=== PATIENT | male | born 1945 | race Caucasian/White ===

== ENCOUNTER → 2016-05-02 | Outpatient (CLI) | payer MEDICARE ==
[~2016-05-02] MED LIST: /METO25TAB PO; /NITR4TASL SL; /WARF5TA PO; ACET50TA PO; ALB2.5NEB INH; AMLO5TAB2 PO; AZIT250T PO; BACIDCA PO; BISAC5TA PO; CEFT500T PO; CLOP75TA2 PO; DOXY75CA3 PO; IPRA2IN INH; OCEA0.65; PRED20TA PO; SIMV20TA2 PO; VENTAER INH
[2016-05-02 09:25] LABS: INR 2.18
== END ==
LOC: M LAB 08:16
PROVIDERS: ATTEND Family Medicine
DX: I48.91 Unspecified atrial fibrillation (principal); Z51.81 Encounter for therapeutic drug level monitoring; Z79.01 Long term (current) use of anticoagulants

== ENCOUNTER → 2016-05-31 | Outpatient (CLI) | payer MEDICARE ==
[2016-05-31 09:25] LABS: INR 2.04
== END ==
LOC: M LAB 08:05
PROVIDERS: ATTEND Family Medicine
DX: Z51.81 Encounter for therapeutic drug level monitoring (principal); Z79.01 Long term (current) use of anticoagulants; I48.91 Unspecified atrial fibrillation

== ENCOUNTER → 2016-06-28 | Outpatient (CLI) | payer MEDICARE ==
[2016-06-28 09:19] LABS: BASO % 0.5 % (0.0-1.0); EOS # 0.4 K/mm3 (0.0-0.50); EOS % 5.1 % (0.0-3.0); LARGE UNSTAINED CELL # 0.3 K/mm3 (0.0-0.4); LARGE UNSTAINED CELL % 3.3 % (0.0-4.0); LYMPH # 1.8 K/mm3 (1.5-4.5); LYMPH % 21.4 % (24.0-44.0); MEAN CORPUSCULAR HEMOGLOBIN 27.8 pg (27.0-33.0); MEAN CORPUSCULAR HGB CONC 33.1 g/dl (32.0-36.5); MEAN CORPUSCULAR VOLUME 84.2 fl (80.0-96.0); MONO # 0.7 K/mm3 (0.0-0.8); MONO % 8.4 % (0.0-5.0); NEUTROPHILS # 5.3 K/mm3 (1.8-7.7); NEUTROPHILS % 61.3 % (36.0-66.0); PLATELET COUNT, AUTOMATED 230 k/mm3 (150-450); RED CELL DISTRIBUTION WIDTH 13.7 % (11.5-14.5); WHITE BLOOD COUNT 8.6 K/mm3 (4.0-10.0)
[2016-06-28 09:36] LABS: ALBUMIN 3.3 GM/DL (3.2-5.2); ALBUMIN/GLOBULIN RATIO 0.97 (1.00-1.93); ALKALINE PHOSPHATASE 84 U/L (45-117); ALT/SGPT 28 U/L (12-78); ANION GAP 9 MEQ/L (8-16); AST/SGOT 19 U/L (15-37); BILIRUBIN,TOTAL 0.9 MG/DL (0.2-1.0); BLOOD UREA NITROGEN 16 MG/DL (7-18); CALCIUM LEVEL 8.5 MG/DL (8.8-10.2); CARBON DIOXIDE LEVEL 29 MEQ/L (21-32); CHLORIDE LEVEL 100 MEQ/L (98-107); CHOLESTEROL LEVEL 131 MG/DL (<200); CREATININE FOR GFR 1.04 MG/DL (0.70-1.30); GLOMERULAR FILTRATION RATE > 60.0 (>42); GLUCOSE, FASTING 95 MG/DL (83-110); SODIUM LEVEL 138 MEQ/L (136-145); TOTAL PROTEIN 6.7 GM/DL (6.4-8.2); TRIGLYCERIDES LEVEL 147 MG/DL (<150)
[2016-06-29 13:58] LABS: INR 2.16
== END ==
LOC: M LAB 08:25
PROVIDERS: ATTEND Family Medicine
DX: Z79.01 Long term (current) use of anticoagulants (principal)

== ENCOUNTER → 2016-06-29 | Outpatient (REF) | payer MEDICARE | LOC: M SFHCCLAY 13:24 | PROVIDERS: ATTEND Family Medicine | DX: I48.91 Unspecified atrial fibrillation (principal) ==

== ENCOUNTER → 2016-07-26 | Outpatient (CLI) | payer MEDICARE ==
[2016-07-26 08:34] LABS: INR 2.48
== END ==
LOC: M LAB 07:44
PROVIDERS: ATTEND Family Medicine
DX: I48.91 Unspecified atrial fibrillation (principal); Z51.81 Encounter for therapeutic drug level monitoring; Z79.01 Long term (current) use of anticoagulants

== ENCOUNTER → 2016-08-23 | Outpatient (CLI) | payer MEDICARE ==
[2016-08-23 08:30] LABS: INR 2.71
== END ==
LOC: M LAB 08:03
PROVIDERS: ATTEND Family Medicine
DX: I48.91 Unspecified atrial fibrillation (principal)

== ENCOUNTER → 2016-09-20 | Outpatient (CLI) | payer MEDICARE ==
[2016-09-20 09:03] LABS: INR 2.11
== END ==
LOC: M LAB 08:27
PROVIDERS: ATTEND Family Medicine
DX: Z51.81 Encounter for therapeutic drug level monitoring (principal); Z79.01 Long term (current) use of anticoagulants; I48.91 Unspecified atrial fibrillation

== ENCOUNTER → 2016-10-18 | Outpatient (CLI) | payer MEDICARE ==
[2016-10-18 09:42] LABS: INR 1.99
== END ==
LOC: M LAB 08:42
PROVIDERS: ATTEND Family Medicine
DX: I48.91 Unspecified atrial fibrillation (principal); Z51.81 Encounter for therapeutic drug level monitoring; Z79.01 Long term (current) use of anticoagulants

== ENCOUNTER → 2016-11-15 | Outpatient (CLI) | payer MEDICARE ==
[2016-11-15 08:05] LABS: INR 2.27
== END ==
LOC: M LAB 07:31
PROVIDERS: ATTEND Family Medicine
DX: I48.91 Unspecified atrial fibrillation (principal); Z51.81 Encounter for therapeutic drug level monitoring; Z79.01 Long term (current) use of anticoagulants

== ENCOUNTER → 2016-12-12 | Outpatient (REF) | payer MEDICARE | LOC: M SFHCCLAY 11:12 | PROVIDERS: ATTEND Nurse Practitioner Family | DX: L03.116 Cellulitis of left lower limb (principal) ==

== ENCOUNTER → 2016-12-13 | Outpatient (CLI) | payer MEDICARE ==
[2016-12-13 08:52] LABS: INR 2.16
== END ==
LOC: EEVIPCON 07:32 → M LAB 07:32
PROVIDERS: ATTEND Family Medicine
DX: I48.91 Unspecified atrial fibrillation (principal); Z51.81 Encounter for therapeutic drug level monitoring; Z79.01 Long term (current) use of anticoagulants

== ENCOUNTER → 2016-12-19 | Outpatient (CLI) | payer MEDICARE ==
--- NOTE | 2016-12-19 09:16 | REP ---
RIGHT HIP, TWO VIEWS: HISTORY: Hip pain. There is no acute fracture or dislocation. There is severe narrowing of the joint space with associated sclerosis and osteophyte formation. IMPRESSION: Degenerative change as described above.
== END ==
LOC: M CLY 07:49
PROVIDERS: ATTEND Nurse Practitioner Family
DX: M16.11 Unilateral primary osteoarthritis, right hip (principal); Z22.322 Carrier or suspected carrier of Methicillin resistant Staphylococcus aureus

== ENCOUNTER → 2017-01-10 | Outpatient (CLI) | payer MEDICARE ==
[2017-01-10 09:47] LABS: INR 1.83
== END ==
LOC: M LAB 08:36
PROVIDERS: ATTEND Family Medicine
DX: I48.91 Unspecified atrial fibrillation (principal)

== ENCOUNTER → 2017-02-07 | Outpatient (CLI) | payer MEDICARE ==
[2017-02-07 09:42] LABS: INR 2.78
== END ==
LOC: M LAB 08:15
PROVIDERS: ATTEND Family Medicine
DX: I48.91 Unspecified atrial fibrillation (principal)

== ENCOUNTER → 2017-03-07 | Outpatient (CLI) | payer MEDICARE ==
[2017-03-07 09:40] LABS: INR 2.21
== END ==
LOC: M LAB 08:34
PROVIDERS: ATTEND Family Medicine
DX: Z51.81 Encounter for therapeutic drug level monitoring (principal); Z79.01 Long term (current) use of anticoagulants; I48.91 Unspecified atrial fibrillation

== ENCOUNTER → 2017-04-04 | Outpatient (CLI) | payer MEDICARE ==
[2017-04-04 10:14] LABS: INR 3.47
== END ==
LOC: M LAB 08:34
PROVIDERS: ATTEND Family Medicine
DX: I48.91 Unspecified atrial fibrillation (principal)

== ENCOUNTER → 2017-04-18 | Outpatient (CLI) | payer MEDICARE ==
[2017-04-18 08:31] LABS: INR 2.07
== END ==
LOC: M LAB 07:59
PROVIDERS: ATTEND Family Medicine
DX: I48.91 Unspecified atrial fibrillation (principal)

== ENCOUNTER → 2017-05-16 | Outpatient (CLI) | payer MEDICARE ==
[2017-05-16 09:31] LABS: INR 2.98; PROTHROMBIN TIME 32.3 SECONDS (12.4-14.5)
== END ==
LOC: M LAB 08:28
DX: I48.91 Unspecified atrial fibrillation (principal)
CPT/HCPCS: 85610

== ENCOUNTER → 2017-06-06 | Outpatient (CLI) | payer MEDICARE ==
[2017-06-06 08:03] LABS: BASO % 0.4 % (0.0-1.0); EOS # 0.4 10^3/uL (0.0-0.50); EOS % 5.2 % (0.0-3.0); HEMOGLOBIN 12.4 g/dl (14.0-18.0); IMMATURE GRANULOCYTE % 0.4 % (0-0); LYMPH % 25.6 % (24.0-44.0); MEAN CORPUSCULAR HEMOGLOBIN 28.2 pg (27.0-33.0); MEAN CORPUSCULAR HGB CONC 31.8 g/dl (32.0-36.5); MEAN CORPUSCULAR VOLUME 88.8 fl (80.0-96.0); MONO # 0.7 10^3/uL (0.0-0.8); MONO % 9.2 % (0.0-5.0); NEUTROPHILS # 4.7 10^3/uL (1.8-7.7); NEUTROPHILS % 59.2 % (36.0-66.0); PLATELET COUNT, AUTOMATED 229 10^3/uL (150-450); RED BLOOD COUNT 4.39 10^6/uL (4.30-6.10); RED CELL DISTRIBUTION WIDTH 14.4 % (11.5-14.5); WHITE BLOOD COUNT 7.9 10^3/uL (4.0-10.0)
[2017-06-06 08:18] LABS: INR 2.82; PROTHROMBIN TIME 30.9 SECONDS (12.4-14.5)
[2017-06-06 08:22] LABS: ALBUMIN 3.4 GM/DL (3.2-5.2); ALKALINE PHOSPHATASE 94 U/L (45-117); ALT/SGPT 35 U/L (12-78); ANION GAP 6 MEQ/L (8-16); AST/SGOT 20 U/L (7-37); BILIRUBIN,TOTAL 0.8 MG/DL (0.2-1.0); BLOOD UREA NITROGEN 21 MG/DL (7-18); CALCIUM LEVEL 8.3 MG/DL (8.8-10.2); CARBON DIOXIDE LEVEL 33 MEQ/L (21-32); CHLORIDE LEVEL 103 MEQ/L (98-107); CHOLESTEROL LEVEL 149 MG/DL (<200); GLOMERULAR FILTRATION RATE > 60.0 (>42); GLUCOSE, FASTING 149 MG/DL (70-100); HDL CHOLESTEROL 39 MG/DL (>40); LDL CHOLESTEROL 71.6 MG/DL (<100); NON-HDL-C 110 MG/DL; POTASSIUM SERUM 4.1 MEQ/L (3.5-5.1); SODIUM LEVEL 142 MEQ/L (136-145); TOTAL PROTEIN 6.8 GM/DL (6.4-8.2); TRIGLYCERIDES LEVEL 192 MG/DL (<150)
== END ==
LOC: M LAB 07:25
DX: Z79.01 Long term (current) use of anticoagulants (principal); E78.5 Hyperlipidemia, unspecified; I10 Essential (primary) hypertension
CPT/HCPCS: 80053

== ENCOUNTER → 2017-07-03 | Outpatient (CLI) | payer MEDICARE ==
[2017-07-03 17:48] LABS: INR 3.23; PROTHROMBIN TIME 34.5 SECONDS (12.4-14.5)
== END ==
LOC: M WUC 13:00
DX: Z79.01 Long term (current) use of anticoagulants (principal); I48.91 Unspecified atrial fibrillation
CPT/HCPCS: 85610

== ENCOUNTER → 2017-07-18 | Outpatient (CLI) | payer MEDICARE ==
[2017-07-18 11:55] LABS: INR 3.34; PROTHROMBIN TIME 35.4 SECONDS (12.4-14.5)
== END ==
LOC: M LAB 11:01
DX: I10 Essential (primary) hypertension (principal); E78.5 Hyperlipidemia, unspecified; Z79.01 Long term (current) use of anticoagulants
CPT/HCPCS: 85610

== ENCOUNTER → 2017-08-21 | Outpatient (CLI) | payer MEDICARE ==
[2017-08-21 16:55] LABS: INR 3.29
== END ==
LOC: M WUC 13:25
DX: I48.91 Unspecified atrial fibrillation (principal)
CPT/HCPCS: 85610

== ENCOUNTER → 2017-09-11 | Outpatient (CLI) | payer MEDICARE ==
[2017-09-11 14:04] LABS: ANION GAP 7 MEQ/L (8-16); BLOOD UREA NITROGEN 31 MG/DL (7-18); CALCIUM LEVEL 8.8 MG/DL (8.8-10.2); CARBON DIOXIDE LEVEL 31 MEQ/L (21-32); CHLORIDE LEVEL 104 MEQ/L (98-107); CREATININE FOR GFR 1.33 MG/DL (0.70-1.30); GLOMERULAR FILTRATION RATE 56.4 (>42); GLUCOSE, FASTING 76 MG/DL (70-100); POTASSIUM SERUM 4.1 MEQ/L (3.5-5.1); SODIUM LEVEL 142 MEQ/L (136-145)
[2017-09-11 15:35] LABS: PROTHROMBIN TIME 27.3 SECONDS (12.4-14.5)
[2017-09-11 15:36] LABS: INR 2.42
== END ==
LOC: M WUC 11:14
DX: I48.91 Unspecified atrial fibrillation (principal); I10 Essential (primary) hypertension
CPT/HCPCS: 80048

== ENCOUNTER → 2017-10-30 | Outpatient (CLI) | payer MEDICARE ==
[2017-10-30 13:36] LABS: INR 1.98; PROTHROMBIN TIME 22.9 SECONDS (12.1-14.4)
== END ==
LOC: M WUC 11:12
DX: Z51.81 Encounter for therapeutic drug level monitoring (principal); Z79.01 Long term (current) use of anticoagulants; I48.91 Unspecified atrial fibrillation
CPT/HCPCS: 85610

== ENCOUNTER → 2017-11-06 | Outpatient (CLI) | payer MEDICARE ==
[2017-11-06 13:45] LABS: INR 2.61; PROTHROMBIN TIME 28.5 SECONDS (12.1-14.4)
== END ==
LOC: M WUC 10:10
DX: I48.91 Unspecified atrial fibrillation (principal)
CPT/HCPCS: 85610

== ENCOUNTER → 2017-11-20 | Outpatient (CLI) | payer MEDICARE ==
[2017-11-20 12:19] LABS: INR 1.41; PROTHROMBIN TIME 17.5 SECONDS (12.1-14.4)
== END ==
LOC: M WUC 10:01
DX: I48.91 Unspecified atrial fibrillation (principal)
CPT/HCPCS: 85610

== ENCOUNTER → 2017-11-27 | Outpatient (CLI) | payer MEDICARE ==
[2017-11-27 12:28] LABS: INR 2.49; PROTHROMBIN TIME 27.4 SECONDS (12.1-14.4)
== END ==
LOC: M WUC 10:39
DX: Z51.81 Encounter for therapeutic drug level monitoring (principal); Z79.01 Long term (current) use of anticoagulants; I48.91 Unspecified atrial fibrillation
CPT/HCPCS: 85610

== ENCOUNTER → 2017-12-03 | Outpatient (REF) | payer MEDICARE ==
[2017-12-03 17:27] LABS: BASO # 0.1 10^3/uL (0.0-0.2); BASO % 0.6 % (0.0-1.0); EOS # 0.4 10^3/uL (0.0-0.50); EOS % 3.8 % (0.0-3.0); HEMATOCRIT 42.6 % (42.0-52.0); HEMOGLOBIN 13.6 g/dl (13.5-17.5); IMMATURE GRANULOCYTE % 0.3 % (0-3.0); LYMPH # 2.3 10^3/uL (1.5-4.5); LYMPH % 23.1 % (24.0-44.0); MEAN CORPUSCULAR HEMOGLOBIN 28.3 pg (27.0-33.0); MEAN CORPUSCULAR HGB CONC 31.9 g/dl (32.0-36.5); MEAN CORPUSCULAR VOLUME 88.6 fl (80.0-96.0); MONO # 1.3 10^3/uL (0.0-0.8); MONO % 12.8 % (0.0-5.0); NEUTROPHILS % 59.4 % (36.0-66.0); PLATELET COUNT, AUTOMATED 201 10^3/uL (150-450); RED BLOOD COUNT 4.81 10^6/uL (4.30-6.10)
[2017-12-03 18:20] LABS: ANION GAP 8 MEQ/L (8-16); BLOOD UREA NITROGEN 23 MG/DL (7-18); CALCIUM LEVEL 9.2 MG/DL (8.8-10.2); CARBON DIOXIDE LEVEL 30 MEQ/L (21-32); CHLORIDE LEVEL 103 MEQ/L (98-107); CREATININE FOR GFR 1.23 MG/DL (0.70-1.30); GLOMERULAR FILTRATION RATE > 60.0 (>42); GLUCOSE, FASTING 92 MG/DL (70-100); POTASSIUM SERUM 4.5 MEQ/L (3.5-5.1); SODIUM LEVEL 141 MEQ/L (136-145)
== END ==
LOC: M SFHCCLAY 10:24
DX: Z51.81 Encounter for therapeutic drug level monitoring (principal); Z79.01 Long term (current) use of anticoagulants; I10 Essential (primary) hypertension
CPT/HCPCS: 80048

== ENCOUNTER → 2017-12-12 | Outpatient (CLI) | payer MEDICARE ==
[2017-12-12 14:14] LABS: INR 2.29; PROTHROMBIN TIME 25.7 SECONDS (12.1-14.4)
== END ==
LOC: M WUC 11:46
DX: Z51.81 Encounter for therapeutic drug level monitoring (principal); Z79.01 Long term (current) use of anticoagulants
CPT/HCPCS: 85610

== ENCOUNTER → 2017-12-26 | Outpatient (CLI) | payer MEDICARE | LOC: M CLY 10:28 | DX: R06.09 Other forms of dyspnea (principal) | CPT/HCPCS: 71046; G0463 ==

== ENCOUNTER → 2018-01-08 | Outpatient (CLI) | payer MEDICARE ==
[2018-01-08 11:48] LABS: INR 2.86; PROTHROMBIN TIME 30.6 SECONDS (12.1-14.4)
== END ==
LOC: M WUC 09:26
DX: Z51.81 Encounter for therapeutic drug level monitoring (principal); Z79.01 Long term (current) use of anticoagulants
CPT/HCPCS: 85610

== ENCOUNTER → 2018-01-23 | Outpatient (CLI) | payer MEDICARE | LOC: M CARPUL 09:17 | DX: R06.09 Other forms of dyspnea (principal); I08.0 Rheumatic disorders of both mitral and aortic valves | CPT/HCPCS: 93306 ==

== ENCOUNTER → 2018-02-05 | Outpatient (CLI) | payer MEDICARE ==
[2018-02-05 17:29] LABS: INR 2.08; PROTHROMBIN TIME 23.8 SECONDS (12.1-14.4)
== END ==
LOC: M WUC 12:29
DX: Z51.81 Encounter for therapeutic drug level monitoring (principal); Z79.01 Long term (current) use of anticoagulants
CPT/HCPCS: 85610

== ENCOUNTER → 2018-03-05 | Outpatient (CLI) | payer MEDICARE ==
[2018-03-05 10:37] LABS: INR 2.11; PROTHROMBIN TIME 24.1 SECONDS (12.1-14.4)
== END ==
LOC: M LAB 09:42
DX: Z51.81 Encounter for therapeutic drug level monitoring (principal); Z79.01 Long term (current) use of anticoagulants
CPT/HCPCS: 85610

== ENCOUNTER → 2018-04-02 | Outpatient (CLI) | payer MEDICARE ==
[2018-04-02 12:56] LABS: INR 2.57; PROTHROMBIN TIME 28.1 SECONDS (12.1-14.4)
== END ==
LOC: M WUC 09:26
DX: Z51.81 Encounter for therapeutic drug level monitoring (principal); Z79.01 Long term (current) use of anticoagulants
CPT/HCPCS: 85610

== ENCOUNTER → 2018-05-01 | Outpatient (CLI) | payer MEDICARE ==
[2018-05-01 12:48] LABS: INR 2.32; PROTHROMBIN TIME 25.9 SECONDS (12.1-14.4)
== END ==
LOC: M WUC 09:10
PROVIDERS: ATTEND Family Medicine
DX: I48.91 Unspecified atrial fibrillation (principal); Z79.01 Long term (current) use of anticoagulants

== ENCOUNTER → 2018-05-29 | Outpatient (CLI) | payer MEDICARE ==
[2018-05-29 15:00] LABS: INR 2.71; PROTHROMBIN TIME 29.3 SECONDS (12.1-14.4)
== END ==
LOC: M WUC 10:52
PROVIDERS: ATTEND Family Medicine
DX: Z51.81 Encounter for therapeutic drug level monitoring (principal); Z79.01 Long term (current) use of anticoagulants

== ENCOUNTER → 2018-06-05 | Outpatient (REF) | payer MEDICARE ==
[2018-06-05 11:53] LABS: HEMATOCRIT 43.4 % (42.0-52.0); HEMOGLOBIN 13.8 g/dl (13.5-17.5); MEAN CORPUSCULAR HEMOGLOBIN 28.3 pg (27.0-33.0); MEAN CORPUSCULAR HGB CONC 31.8 g/dl (32.0-36.5); MEAN CORPUSCULAR VOLUME 89.1 fl (80.0-96.0); PLATELET COUNT, AUTOMATED 256 10^3/uL (150-450); RED BLOOD COUNT 4.87 10^6/uL (4.30-6.10)
[2018-06-05 12:22] LABS: ALBUMIN 3.6 GM/DL (3.2-5.2); BILIRUBIN,TOTAL 0.8 MG/DL (0.2-1.0); CALCIUM LEVEL 8.6 MG/DL (8.8-10.2); CHOLESTEROL RISK RATIO 4.242 (<5); CREATININE FOR GFR 1.29 MG/DL (0.70-1.30); GLOMERULAR FILTRATION RATE 58.3 (>42); POTASSIUM SERUM 4.2 MEQ/L (3.5-5.1); TOTAL PROTEIN 7.1 GM/DL (6.4-8.2)
== END ==
LOC: M SFHCCLAY 09:25
PROVIDERS: ATTEND Family Medicine
DX: Z51.81 Encounter for therapeutic drug level monitoring (principal); Z79.01 Long term (current) use of anticoagulants; I48.91 Unspecified atrial fibrillation; E78.5 Hyperlipidemia, unspecified

== ENCOUNTER → 2018-06-26 | Outpatient (CLI) | payer MEDICARE ==
[2018-06-26 13:31] LABS: INR 2.52; PROTHROMBIN TIME 27.7 SECONDS (12.1-14.4)
== END ==
LOC: M WUC 10:32
PROVIDERS: ATTEND Family Medicine
DX: Z79.01 Long term (current) use of anticoagulants (principal)

== ENCOUNTER → 2018-07-24 | Outpatient (CLI) | payer MEDICARE ==
[2018-07-24 12:20] LABS: INR 3.02
== END ==
LOC: M WUC 09:28
PROVIDERS: ATTEND Family Medicine
DX: Z51.81 Encounter for therapeutic drug level monitoring (principal); Z79.01 Long term (current) use of anticoagulants

== ENCOUNTER → 2018-08-21 | Outpatient (CLI) | payer MEDICARE ==
[~2018-08-21] MED LIST changes: -/METO25TAB PO; -/NITR4TASL SL; -/WARF5TA PO; -ACET50TA PO; +COUM1TAB17 PO; +MAPA500T17 PO; +METO1TAB87 PO; +NITR0.4S SL
[2018-08-21 17:06] LABS: INR 2.15; PROTHROMBIN TIME 24.4 SECONDS (12.1-14.4)
== END ==
LOC: M WUC 13:34
PROVIDERS: ATTEND Family Medicine
DX: I48.91 Unspecified atrial fibrillation (principal); Z79.01 Long term (current) use of anticoagulants

== ENCOUNTER → 2018-09-24 | Outpatient (CLI) | payer MEDICARE ==
[2018-09-24 12:49] LABS: INR 2.85; PROTHROMBIN TIME 30.5 SECONDS (12.1-14.4)
== END ==
LOC: M WUC 09:32
PROVIDERS: ATTEND Family Medicine
DX: Z79.01 Long term (current) use of anticoagulants (principal); I48.91 Unspecified atrial fibrillation

== ENCOUNTER → 2018-10-03 | Outpatient (CLI) | payer MEDICARE ==
[2018-10-03 19:24] LABS: BASO % 0.5 % (0.0-1.0); EOS # 0.3 10^3/uL (0.0-0.50); EOS % 3.9 % (0.0-3.0); HEMOGLOBIN 13.5 g/dl (13.5-17.5); LYMPH # 1.7 10^3/uL (1.5-4.5); LYMPH % 19.7 % (24.0-44.0); MEAN CORPUSCULAR HEMOGLOBIN 28.1 pg (27.0-33.0); MEAN CORPUSCULAR HGB CONC 32.1 g/dl (32.0-36.5); MEAN CORPUSCULAR VOLUME 87.3 fl (80.0-96.0); MONO % 11.4 % (0.0-5.0); NEUTROPHILS # 5.4 10^3/uL (1.8-7.7); NEUTROPHILS % 64.3 % (36.0-66.0); PLATELET COUNT, AUTOMATED 241 10^3/uL (150-450); RED BLOOD COUNT 4.81 10^6/uL (4.30-6.10); WHITE BLOOD COUNT 8.4 10^3/uL (4.0-10.0)
[2018-10-03 19:33] LABS: ALBUMIN 3.3 GM/DL (3.2-5.2); ALT/SGPT 22 U/L (12-78); BILIRUBIN,TOTAL 0.9 MG/DL (0.2-1.0); BLOOD UREA NITROGEN 26 MG/DL (7-18); CALCIUM LEVEL 8.9 MG/DL (8.8-10.2); CARBON DIOXIDE LEVEL 31 MEQ/L (21-32); CHLORIDE LEVEL 101 MEQ/L (98-107); CREATININE FOR GFR 1.17 MG/DL (0.70-1.30); GLOMERULAR FILTRATION RATE > 60.0 (>42); GLUCOSE, FASTING 107 MG/DL (70-100); POTASSIUM SERUM 4.4 MEQ/L (3.5-5.1); SODIUM LEVEL 138 MEQ/L (136-145); TOTAL PROTEIN 6.8 GM/DL (6.4-8.2)
[2018-10-03 19:50] LABS: APPEARANCE, URINE CLEAR (CLEAR); BACTERIA, URINE AUTO NEGATIVE (NEGATIVE); BILIRUBIN, URINE AUTO NEGATIVE (NEGATIVE); BLOOD, URINE BLOOD NEGATIVE (NEGATIVE); COLOR, URINE YELLOW (YELLOW); GLUCOSE, URINE (UA) AUTO NEGATIVE (NEGATIVE); KETONE, URINE AUTO NEGATIVE (NEGATIVE); LEUKOCYTE ESTERASE, URINE AUTO NEGATIVE (NEGATIVE); NITRITE, URINE AUTO NEGATIVE (NEGATIVE); PROTEIN, URINE AUTO NEGATIVE (NEGATIVE); RBC, URINE AUTO 4 /HPF (0-3); SPECIFIC GRAVITY URINE AUTO 1.017 (1.002-1.035); SQUAMOUS EPITHELIAL CELL UR AU 0 /HPF (0-6); WBC, URINE AUTO 1 /HPF (0-3)
== END ==
LOC: M WUC 14:00
DX: M16.11 Unilateral primary osteoarthritis, right hip (principal); Z01.818 Encounter for other preprocedural examination

== ENCOUNTER → 2018-11-13 | Outpatient (CLI) | payer MEDICARE ==
[2018-11-13 13:29] LABS: INR 2.74; PROTHROMBIN TIME 28.9 SECONDS (11.8-14.0)
== END ==
LOC: M WUC 10:43
PROVIDERS: ATTEND Family Medicine
DX: I48.91 Unspecified atrial fibrillation (principal); Z79.01 Long term (current) use of anticoagulants

== ENCOUNTER → 2018-12-09 | Outpatient (CLI) | payer MEDICARE ==
[2018-12-09 13:50] LABS: INR 1.6; PROTHROMBIN TIME 18.8 SECONDS (11.8-14.0)
== END ==
LOC: M WUC 09:35
PROVIDERS: ATTEND Family Medicine
DX: Z79.01 Long term (current) use of anticoagulants (principal); I48.91 Unspecified atrial fibrillation

== ENCOUNTER → 2018-12-18 | Outpatient (CLI) | payer MEDICARE ==
[2018-12-18 13:38] LABS: INR 2.52; PROTHROMBIN TIME 27.1 SECONDS (11.8-14.0)
== END ==
LOC: M WUC 09:57
PROVIDERS: ATTEND Family Medicine
DX: Z79.01 Long term (current) use of anticoagulants (principal)

== ENCOUNTER → 2019-01-15 | Outpatient (CLI) | payer MEDICARE ==
[2019-01-15 13:25] LABS: INR 2.62; PROTHROMBIN TIME 27.9 SECONDS (11.8-14.0)
== END ==
LOC: M WUC 09:50
PROVIDERS: ATTEND Family Medicine
DX: Z79.01 Long term (current) use of anticoagulants (principal); I48.91 Unspecified atrial fibrillation

== ENCOUNTER → 2019-02-05 | Outpatient (CLI) | payer MEDICARE ==
[2019-02-05 20:39] LABS: INR 2.04; PROTHROMBIN TIME 22.8 SECONDS (11.8-14.0)
== END ==
LOC: M WUC 16:44
PROVIDERS: ATTEND Family Medicine
DX: Z79.01 Long term (current) use of anticoagulants (principal); I48.91 Unspecified atrial fibrillation

== ENCOUNTER 2019-02-08 22:41 | Emergency (ER) | payer MEDICARE ==
[~2019-02-08] VITALS: Ht 170.2 cm; Wt 89.5 kg
[2019-02-08 22:42] VITALS: BP 135/63
[2019-02-08 23:31] LABS: ABG BASE EXCESS 4.5 (-2.0-2.0); ABG HCO3 30.3 MEQ/L (22.0-26.0); ABG O2 SATURATION 96.1 % (95.0-99.0); ABG PARTIAL PRESSURE CO2 49.5 mmHg (35.0-45.0); ABG PARTIAL PRESSURE O2 83.4 mmHg (75.0-100.0); ABG STANDARD HCO3 28.5 MEQ/L (22.0-26.0); ABG TOTAL CO2 31.8 MEQ/L (23.0-31.0); ABG pH (ARTERIAL) 7.405 UNITS (7.350-7.450)
[2019-02-08] MEDS ORDERED: FUROSEMIDE 100 MG/10 ML VIAL (J1940) IV ONE (23:45)
[2019-02-08 23:48] LABS: BASO # 0.1 10^3/uL (0.0-0.2); BASO % 0.6 % (0.0-1.0); EOS # 0.3 10^3/uL (0.0-0.5); EOS % 3.3 % (0.0-3.0); HEMATOCRIT 42.5 % (42.0-52.0); HEMOGLOBIN 13.6 g/dl (13.5-17.5); LYMPH # 1.4 10^3/uL (1.5-5.0); LYMPH % 14.3 % (24.0-44.0); MEAN CORPUSCULAR HEMOGLOBIN 27.4 pg (27.0-33.0); MEAN CORPUSCULAR VOLUME 85.5 fl (80.0-96.0); MONO # 0.9 10^3/uL (0.0-0.8); MONO % 9.7 % (0.0-5.0); NEUTROPHILS # 6.8 10^3/uL (1.5-8.5); NEUTROPHILS % 71.9 % (36.0-66.0); PLATELET COUNT, AUTOMATED 228 10^3/uL (150-450); RED BLOOD COUNT 4.97 10^6/uL (4.30-6.10); WHITE BLOOD COUNT 9.5 10^3/uL (4.0-10.0)
[2019-02-08 23:58] LABS: INR 2.74; PROTHROMBIN TIME 28.9 SECONDS (11.8-14.0)
[2019-02-08 23:59] LABS: PARTIAL THROMBOPLASTIN TIME 45.2 SECONDS (25.0-38.4)
[2019-02-09 00:20] LABS: BLOOD UREA NITROGEN 23 MG/DL (7-18); CALCIUM LEVEL 8.8 MG/DL (8.8-10.2); CARBON DIOXIDE LEVEL 36 MEQ/L (21-32); CHLORIDE LEVEL 94 MEQ/L (98-107); CK-MB VALUE MASS 6.3 NG/ML (<3.6); CPK CREATINE PHOSPHOKINASE 95 U/L (39-308); CREATININE FOR GFR 1.42 MG/DL (0.70-1.30); GLOMERULAR FILTRATION RATE 52.2 (>42); GLUCOSE, FASTING 118 MG/DL (70-100); MB/CK RELATIVE INDEX 6.63 (< OR =4); NT-PRO BNP 611 PG/ML (<125); SODIUM LEVEL 135 MEQ/L (136-145); TROPONIN I < 0.02 NG/ML (< 0.10)
--- NOTE | 2019-02-09 09:42 | REP ---
REASON: Dyspnea. COMPARISON: Multiple, the latest 12/26/2017. There is evidence of mild interstitial fibrotic change. There are no patchy opacities or pleural effusions. The cardiomediastinal silhouette is unchanged. The heart is not enlarged. There is no change in the osseous structures. IMPRESSION: Stable appearing chronic changes without evidence of acute cardiopulmonary disease. Electronically Signed by Darian Coffey DO 02/09/2019 09:50 A
--- NOTE | 2019-02-09 19:06 | ECGEPIP ---
[facility] - ED Test Date: 2019-02-08 Pat Name: ANA MAYO Department: Room: - Gender: Male Heel Compressor: : 1945 Requested By: MEGA SUAREZ Order Number: [id number] Reading MD: Taiwo Rodgers Measurements Intervals [place] Rate: 63 P: NM: 0 QRS: 60 QRSD: 105 T: 61 QT: 432 QTc: 444 Interpretive Statements ATRIAL FIBRILLATION Nonspecific ST-T wave abnormalities Similar to tracing done 05-18-14 but with increased rate Electronically Signed on 02-09-2019 19:06:25 EDT by Taiwo Rodgers
== END 2019-02-09 01:18 | disposition home or self-care (01) ==
LOC: M ED 22:41
DX: I50.9 Heart failure, unspecified (principal); I11.0 Hypertensive heart disease with heart failure; J44.9 Chronic obstructive pulmonary disease, unspecified; I48.91 Unspecified atrial fibrillation; E78.5 Hyperlipidemia, unspecified; Z79.899 Other long term (current) drug therapy; Z79.01 Long term (current) use of anticoagulants; Z88.1 Allergy status to other antibiotic agents; Z88.2 Allergy status to sulfonamides; Z87.891 Personal history of nicotine dependence
CPT/HCPCS: 36600; 71046; 80048; 82550; 82553; 82803; 83880; 84484; 85025; 85610; 85730; 93005; 96374; 99284; J1940

== ENCOUNTER → 2019-03-04 | Outpatient (CLI) | payer MEDICARE ==
[2019-03-04 11:40] LABS: INR 2.59; PROTHROMBIN TIME 27.6 SECONDS (11.8-14.0)
== END ==
LOC: M WUC 08:51
PROVIDERS: ATTEND Family Medicine
DX: Z79.01 Long term (current) use of anticoagulants (principal); I48.91 Unspecified atrial fibrillation

== ENCOUNTER → 2019-04-02 | Outpatient (REF) | payer MEDICARE ==
[2019-04-02 18:18] LABS: INR 2.45; PROTHROMBIN TIME 26.4 SECONDS (11.8-14.0)
== END ==
LOC: M SFHCCLAY 10:16
PROVIDERS: ATTEND Family Medicine
DX: Z79.01 Long term (current) use of anticoagulants (principal)

== ENCOUNTER → 2019-05-01 | Outpatient (REF) | payer MEDICARE ==
[2019-05-01 12:13] LABS: INR 2.68; PROTHROMBIN TIME 28.4 SECONDS (11.8-14.0)
== END ==
LOC: M SFHCCLAY 08:04
PROVIDERS: ATTEND Family Medicine
DX: Z79.01 Long term (current) use of anticoagulants (principal)

== ENCOUNTER → 2019-05-28 | Outpatient (REF) | payer MEDICARE ==
[2019-05-28 12:34] LABS: INR 3.43; PROTHROMBIN TIME 34.6 SECONDS (11.8-14.0)
== END ==
LOC: M SFHCCLAY 08:21
PROVIDERS: ATTEND Family Medicine
DX: Z79.01 Long term (current) use of anticoagulants (principal)

== ENCOUNTER 2020-05-06 00:55 | Emergency (ER) | payer MEDICARE ==
[~2020-05-06] VITALS: Ht 172.7 cm; Wt 87.1 kg
[2020-05-06] MEDS ORDERED: PARO20TA3 (01:17)
[2020-05-06] MEDS ORDERED: WARF-23 (01:17)
[2020-05-06] MEDS ORDERED: PROA1AER2 (01:17)
[2020-05-06] MEDS ORDERED: ATOR40TA75 (01:17)
[2020-05-06] MEDS ORDERED: ANOR1AER (01:17)
[2020-05-06] MEDS ORDERED: METO1TAB87 (01:17)
[2020-05-06] MEDS ORDERED: CHLO125TA (01:17)
[2020-05-06] MEDS ORDERED: OMEP-221 (01:17)
[2020-05-06 01:30] LABS: BASO # 0.1 10^3/uL (0.0-0.2); BASO % 0.4 % (0.0-1.0); EOS # 0.4 10^3/uL (0.0-0.5); EOS % 2.4 % (0.0-3.0); HEMATOCRIT 46.8 % (42.0-52.0); HEMOGLOBIN 14.7 g/dl (13.5-17.5); LYMPH % 13.7 % (24.0-44.0); MEAN CORPUSCULAR HEMOGLOBIN 27.9 pg (27.0-33.0); MEAN CORPUSCULAR HGB CONC 31.4 g/dl (32.0-36.5); MONO # 1.2 10^3/uL (0.0-0.8); MONO % 8.3 % (0.0-5.0); NEUTROPHILS # 11.1 10^3/uL (1.5-8.5); NEUTROPHILS % 74.9 % (36.0-66.0); PLATELET COUNT, AUTOMATED 197 10^3/uL (150-450); RED BLOOD COUNT 5.26 10^6/uL (4.30-6.10); WHITE BLOOD COUNT 14.9 10^3/uL (4.0-10.0)
[2020-05-06 01:39] LABS: INR 2.49; PARTIAL THROMBOPLASTIN TIME 39.6 SECONDS (24.2-38.5); PROTHROMBIN TIME 27.5 SECONDS (12.5-14.3)
--- NOTE | 2020-05-06 01:45 | REPVR ---
PROCEDURE INFORMATION: Exam: XR Left Shoulder Exam date and time: 05/06/2020 1:18 AM Age: 75 years old Clinical indication: Other: Pain TECHNIQUE: Imaging protocol: XR Left shoulder. Views: 2 or more views. COMPARISON: CR Shoulder, complete 07/23/2013 11:20 AM FINDINGS: Bones/joints: Bony mineralization is normal for age. No evidence of acute fracture. No concerning osseous lesion. AC joint is aligned normally. Glenohumeral joint is aligned normally. Visualized upper ribs are unremarkable. Soft tissues: No abnormal soft tissue process. No concerning soft tissue calcifications. IMPRESSION: Unremarkable shoulder radiographs. Electronically signed by: Donnell Mario On 05/06/2020 01:45:23 AM
--- NOTE | 2020-05-06 01:45 | REPVR ---
PROCEDURE INFORMATION: Exam: XR Chest, 1 View Exam date and time: 05/06/2020 1:08 AM Age: 75 years old Clinical indication: Other: Chest pain TECHNIQUE: Imaging protocol: XR of the chest Views: 1 view. COMPARISON: CR Chest, 2 view PA, Lat 02/08/2019 11:11 PM FINDINGS: Lungs: Degree of lung inflation is normal. No evidence of pulmonary edema. No focal consolidation or parenchymal lung mass. Pleural space: No pleural effusion or pneumothorax. Heart/Mediastinum: Cardiac silhouette appears normal. No adenopathy or hilar mass. Bones/joints: Osseous structures show no concerning abnormality. IMPRESSION: No acute or focal cardiopulmonary process. Electronically signed by: Donnell Mario On 05/06/2020 01:46:02 AM
[2020-05-06 01:48] LABS: ERYTHROCYTE SEDIMENTATION RATE 2 mm/hr (0-20)
[2020-05-06 02:05] LABS: ALBUMIN 3.8 GM/DL (3.2-5.2); ALT/SGPT 23 U/L (12-78); BILIRUBIN,DIRECT 0.3 MG/DL (0.0-0.2); BILIRUBIN,TOTAL 1.3 MG/DL (0.2-1.0); BLOOD UREA NITROGEN 22 MG/DL (7-18); CARBON DIOXIDE LEVEL 37 MEQ/L (21-32); CHLORIDE LEVEL 97 MEQ/L (98-107); CK-MB VALUE MASS 3.9 NG/ML (<3.6); CPK CREATINE PHOSPHOKINASE 63 U/L (39-308); CREATININE FOR GFR 1.16 MG/DL (0.70-1.30); FREE T4 0.96 NG/DL (0.76-1.46); GLOMERULAR FILTRATION RATE > 60.0 (>42); GLUCOSE, FASTING 117 MG/DL (70-100); LIPASE 214 U/L (73-393); MB/CK RELATIVE INDEX 6.19 (< OR =4); NT-PRO BNP 1064 PG/ML (<125); SODIUM LEVEL 137 MEQ/L (136-145); TOTAL PROTEIN 7.2 GM/DL (6.4-8.2); TROPONIN I < 0.02 NG/ML (< 0.10); URIC ACID 6.5 MG/DL (3.5-7.2)
[2020-05-06] MEDS ORDERED: KETOROLAC 30 MG/ML 1ML VIAL IV ONE (02:30)
[2020-05-06] MEDS ORDERED: POTASSIUM CHLORIDE 10 MEQ SR TABLET PO ONE (02:30)
[2020-05-06 05:10] VITALS: BP 126/78
--- NOTE | 2020-05-06 05:36 | ECGEPIP ---
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
[2020-05-06 05:51] LABS: CK-MB VALUE MASS 3.5 NG/ML (<3.6); CPK CREATINE PHOSPHOKINASE 54 U/L (39-308); MB/CK RELATIVE INDEX 6.48 (< OR =4); TROPONIN I < 0.02 NG/ML (< 0.10)
[2020-05-06] MEDS ORDERED: PRED20TA PO (06:29)
--- NOTE | 2020-05-07 21:21 | ECGEPIP ---
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
== END 2020-05-06 06:38 | disposition home or self-care (01) ==
LOC: M ED 00:55
DX: M75.52 Bursitis of left shoulder (principal); J44.9 Chronic obstructive pulmonary disease, unspecified; Z79.899 Other long term (current) drug therapy; Z79.01 Long term (current) use of anticoagulants; Z88.1 Allergy status to other antibiotic agents; Z88.2 Allergy status to sulfonamides
CPT/HCPCS: 71045; 73030; 80048; 80076; 82550; 82553; 83690; 83880; 84439; 84443; 84484; 84550; 85025; 85610; 85652; 85730; 86140; 93005; 93041; 94760; 96374; 99285; J1885

== ENCOUNTER 2020-05-18 01:09 | Emergency (ER) | payer MEDICARE ==
[~2020-05-18] VITALS: Ht 172.7 cm; Wt 86.0 kg
[~2020-05-18 01:09] MED LIST changes: +ANOR1AER; +ATOR40TA75; +CHLO125TA; +METO1TAB87; +OMEP-221; +PARO20TA3; +PROA1AER2; +WARF-23
--- OUTSIDE RECORDS SUMMARY | 2020-05-18 01:19 | CCD ---
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 Active 542809224 Problem Colon cancer screening Z12.11 Active 036427912 Problem Atrial fibrillation I48.91 Active 38884671 Problem HTN (hypertension) I10 Active 13878392 Problem COPD (chronic obstructive pulmonary disease) J44.9 Active 445281396 Problem Kyphosis M40.209 Active 469840036 Problem Hyperlipidemia E78.5 Active 59898211 Problem Primary osteoarthritis of right hip M16.11 Acti ve 037352346 Problem MRSA (methicillin resistant staph aureus) culture positive Z22.322 Active 880175551 Problem Stasis dermatitis of both legs I87.2 Active 3 0772812 Problem COPD exacerbation J44.1 Active 495850084 Problem Reactive depression F32.9 Active 96062424 Problem Gastroesophageal reflux dise ase, unspecified whether esophagitis present K21.9 Active 500844540 Problem Recurrent epistaxis R04.0 Active 22235942 Problem PVD (peripheral vascular disease) I73.9 Active 446875175 Problem Atherosclerosis of [place] ronary artery of [place] heart without angina pectoris I25.10 Active 612367766804398 Problem Other congestive heart failure I50.9 Active 4 1414239 Problem 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 Active 702272291418207 ALLERGIES Allergen (clinical drug ingredient) Drug/Non Drug Allergy do cumented on EMR Reaction Allergy Type Onset Date Status moxifloxacin Avelox Tachycardia Drug Allergy Active Sulfa (for allergy use only) [place] goofy Drug Allergy Active Seasonal Dyspnea Non Drug Allergy Active ENCOUNTERS from 1945 to 2020-05-08 Encounter Location Date Provider Diagnosis [facility] [address] [address] 08 Apr, 2020 Robert Harrington IMMUNIZATIONS Vaccine Route Administration Date Status Influenza (18 yrs & older) Flublok IM Intramuscular Mar 08, 2018 Administered Influenza (High Dose 65 & up) IM Intramuscular Apr 16, 2017 A dministered Influenza (High Dose 65 & up) Unknown Feb 28, 2016 Ad ministered Influenza (High Dose 65 & up) IM Intramuscular Feb 23, 2015 A dministered Pneumococcal Adult 0.5mL (Pneumovax 23) IM Intramuscular Jun 14, 2011 Administered Pneumococcal 0.5mL (Prevnar 13) IM Intramuscular Dec 01, 2014 Administered Influenza (18 yrs & older) Flublok IM Intramuscular 2019 Administered Influenza (6mo & up) Fluzone IM Intramuscular Feb 24, 2014 Ad ministered Influenza (18 yrs & older) Flublok IM Intramuscular Jan 20 0 Administered Influenza (6mo & up) Fluzone IM Intramuscular Feb 13, 2013 Ad ministered Influenza (6mo & up) Fluzone IM Intramuscular Jun 14, 2011 Ad ministered SOCIAL HISTORY Tobacco Use: Social History Observation Description Date Details (start date - stop date) Former Smoker Sex Assigned At : Social History Observation Description Sex Assigned At Unknown Education: Question Answer Notes Level of Education: Not Finished College Audit Question Answer Notes Total Score: 1 Interpretation: Alcohol Education Language: Question Answer Notes Languages spoken: Slovenian Buddhist: Question Answer Notes Buddhist No orthodoxy beliefs that would impact health care. Sexual Hx: Question Answer Notes Had sex in the last 12 months (vaginal, oral, or anal)? No Have you ever had an STD? No Drug and Alcohol Question Answer Notes Total Score: 0 Interpretation: No problems reported Alcohol Screening: Question Answer Notes Did you have a drink containing alcohol in the past year? Ye s Points 1 Interpretation Negative How often did you have six or more drinks on one occas ion in the past year? Never (0 points) How many drinks did you have on a typica l day when you were drinking in the past year? 1 or 2 (0 points) How often did you have a drink containing alcohol in t he past year? Monthly or less (1 point) BMI Care Goal Follow-Up Question Answer Notes Above Normal BMI Follow-Up Dietary management educatio n, guidance, and counseling -28.2 Tobacco Use: Question Answer Notes Are you a: former smoker quit 2009 updated Additional Findings: Tobacco Non-User Current non-smoker How long has it been since you last smoked? 1-5 years REASON FOR REFERRAL No Information VITAL SIGNS No information MEDICATIONS Medication SIG (Take, Route, Frequency, Duration) Notes Start Da te End Date Status Albuterol Sulfate (2.5 MG/3ML) 0.083% 3 ml Inhalation q 4 ho ur prn prn wheezing Active Hydrocodone-Acetaminophen 5-325 MG 1 tablet as needed Orally every 6 hrs MDD=4 August, Active Antihistamine 30-2.5 MG 1 Orally Prn Active Anoro Ellipta 62.5-25 MCG/INH INHALE ONE PUFF BY MOUTH ONCE DAILY Inhalation Once a day Active Vitamin D3 1000 UNIT 1 capsule Orally Once a day Active ProAir RespiClick 108 (90 Base) MCG/ACT 1 puff as need ed Inhalation four times daily as needed Active Nitroglycerin 0.4 MG 1 tablet under the tongue an d allow to dissolve as needed Sublingual every 5 min for chest pain Active Ipratropium [place] 0.02 % 1 vial via nebulizer q4h prn wheezing Active Warfarin Sodium 5 MG 1 tablet Orally 1/2 tab x 3 days-whole tab ROW Active Omeprazole 40 MG 1 capsule 30 minutes before morning meal Orally Once a day for 30 day(s) Mar, Active Metoprolol Tartrate 25 mg 1 tablet Orally Twice a day for 90 day(s) Active Paroxetine HCl 20 MG 1 tablet in the morning Orally Once a day Active Atorvastatin Calcium 40 MG 1 tablet Orally Once a day for 90 Active Chlorthalidone 25 25 mg 1 tab orally daily for 90 days Active PredniSONE 10 MG 4 tablets Orally daily for 5 days then 3 tabs daily for 5 days then 2 tabs daily for 5 days then 1 tab daily for 20 days Sep Active PROCEDURES No Information RESULTS No Results REASON FOR VISIT renewal MEDICAL (GENERAL) HISTORY Type Description Date Medical History Hypercholesterolemia Medical History Smoker Medical History STEMI: 3 stents Medical History Hypertension Medical History CHF Medical History Atrial Fib Medical History COPD Medical History CAD Surgical History Lt side inguinal hernia 09/06 Surgical History Lipoma removed from back Surgical History Tonsillectomy Surgical History Rt. wrist injury/surgical repair 05/25/19 12 02/2011 Surgical History cath with PTCA : [facility] 2011 Surgical History Right hip replacement 10/16/18 Hospitalization History Pneumonia MAR 2012 Hospitalization History [id number] infection 02/21/15 Hospitalization History [facility]-ER for sore on buttocks 12/13/15 Hospitalization History W/surgery-in [place] 10/16/18 Hospitalization History ER-prod. cough 12/04/18 Hospitalization History [facility]-ER-SOB,going "goofy" 02/09/19 Hospitalization History [facility]-almost passed out-5-6 times in a row-AFib? 03/16/19 Goals Section No Information Health Concerns No Information MEDICAL EQUIPMENT No Information MENTAL STATUS No Information FUNCTIONAL STATUS No Information ASSESSMENTS No Information PLAN OF TREATMENT Medication Medication Name Sig Start Date Stop Date Metoprolol Tartrate 25 mg 1 tablet Orally Twice a day for 90 day (s) Atorvastatin Calcium 40 MG 1 tablet Orally Once a day for 90 Next Appt Details Provider Name:Hansa Mckeon, 2020-04 07:00:00 AM, [address] [place], [address], Insurance Providers Payer Name Payer Address Payer Phone Insured Name Patient Relati onship to Insured Coverage Start Date Coverage End Date MEDICARE BLUE O [address] [id number] ANA MAYO self 2018
--- OUTSIDE RECORDS SUMMARY | 2020-05-18 01:19 | CCD ---
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.01 Active 268161110 Problem Colon cancer screening Z12.11 Active 174160942 Problem Atrial fibrillation I48.91 Active 48812969 Problem HTN (hypertension) I10 Active 99723643 Problem COPD (chronic obstructive pulmonary disease) J44.9 Active 062262555 Problem Kyphosis M40.209 Active 602425379 Problem Hyperlipidemia E78.5 Active 93435669 Problem Primary osteoarthritis of right hip M16.11 Acti ve 467517851 Problem MRSA (methicillin resistant staph aureus) culture positive Z22.322 Active 414987141 Problem Stasis dermatitis of both legs I87.2 Active 3 8426155 Problem COPD exacerbation J44.1 Active 700982517 Problem Reactive depression F32.9 Active 74130090 Problem Gastroesophageal reflux dise ase, unspecified whether esophagitis present K21.9 Active 808971865 Problem Recurrent epistaxis R04.0 Active 25844308 Problem PVD (peripheral vascular disease) I73.9 Active 103244341 Problem Atherosclerosis of [place] co ronary artery of [place] heart without angina pectoris I25.10 Active 366776019923743 Problem Other congestive heart failure I50.9 Active 4 4060020 Problem 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 Active 173161023669242 ALLERGIES Allergen (clinical drug ingredient) Drug/Non Drug Allergy do cumented on EMR Reaction Allergy Type Onset Date Status moxifloxacin Avelox Tachycardia Drug Allergy Active Sulfa (for allergy use only) [place] goofy Drug Allergy Active Seasonal Dyspnea Non Drug Allergy Active ENCOUNTERS from 1945 to 2020-05-10 Encounter Location Date Provider Diagnosis [facility] [address] [address] Apr Hansa Schoeneman Atrial fibrillation I48.91 and alf (current) use of anticoagulants Z79.01 IMMUNIZATIONS Vaccine Route Administration Date Status Influenza [...] Education Language: Question Answer Notes Languages spoken: Zambian Mormon: Question Answer Notes Mormon No orthodox beliefs that would impact health care. Sexual [...] 5 min for chest pain Active Ipratropium [place] 0.02 % 1 vial via nebulizer q4h [...] days Sep Active PROCEDURES No Information RESULTS Component Value Reference Range PT-INR Fingerstick Reviewed date:05/05/2020 11:27:14 Interpretation: Performing Lab:[facility] [place] [address] INR 2.7 Verified Patient's Name and yes Current Dose 1 5mg MWF Current Dose 2 2.5mg ROW Tab Strength 5mg tabs Indication for Anticoagulation AFIB Recent Bleeding no Internal QC Acceptable (Y/N) yes Therapeutic Range 2-3 Education Given (Date / Initials) New Dose 1 no change New Dose 2 Weekly Total Next PT-INR 2 weeks - pt aware - REASON FOR VISIT FS INR MEDICAL (GENERAL) HISTORY Type Description Date Medical [...] 02/2011 Surgical History cath with [facility] : [facility] 2011 Surgical History Right hip replacement 10/16/18 Hospitalization History Pneumonia MAR 2012 Hospitalization History [id number] infection 02/21/15 Hospitalization History [facility]-ER for sore on buttocks 12/13/15 Hospitalization History W/surgery-in [place] 10/16/18 Hospitalization History ER-prod. cough 12/04/18 Hospitalization History [facility]-ER-SOB,going "goofy" 02/09/19 Hospitalization History [facility]-almost passed out-5-6 times in a row-AFib? 03/16/19 Goals Section No Information Health Concerns No Information MEDICAL EQUIPMENT No Information MENTAL STATUS No Information FUNCTIONAL STATUS No Information ASSESSMENTS Encounter Date Diagnosis Assessment Notes Treatment Notes Treatm ent Clinical Notes Apr, Atrial fibrillation (ICD-10 - I48.91) Apr, alf (current) use of anticoagulants (ICD-1 0 - Z79.01) PLAN OF TREATMENT Medication Medication Name Sig Start Date Stop Date Metoprolol Tartrate 25 mg 1 tablet Orally Twice a day for 90 day (s) Atorvastatin Calcium 40 MG 1 tablet Orally Once a day for 90 Next Appt Details Provider Name:Hansa Velasquezchelsey, 2020-04 07:00:00 AM, [address] [place], [address], Insurance Providers Payer Name Payer Address Payer Phone Insured Name Patient Relati onship to Insured Coverage Start Date Coverage End Date MEDICARE BLUE PPO [address] [id number] ANA MAYO self 2018
--- OUTSIDE RECORDS SUMMARY | 2020-05-18 01:19 | CCD ---
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.01 Active 743919850 Problem Colon cancer screening Z12.11 Active 215187518 Problem Atrial fibrillation I48.91 Active 45991506 Problem HTN (hypertension) I10 Active 21723769 Problem COPD (chronic obstructive pulmonary disease) J44.9 Active 014626825 Problem Kyphosis M40.209 Active 708786440 Problem Hyperlipidemia E78.5 Active 36296533 Problem Primary osteoarthritis of right hip M16.11 Acti ve 288357204 Problem MRSA (methicillin resistant staph aureus) culture positive Z22.322 Active 058454914 Problem Stasis dermatitis of both legs I87.2 Active 3 8672318 Problem COPD exacerbation J44.1 Active 637431479 Problem Reactive depression F32.9 Active 61550594 Problem Gastroesophageal reflux dise ase, unspecified whether esophagitis present K21.9 Active 804297982 Problem Recurrent epistaxis R04.0 Active 11098054 Problem PVD (peripheral vascular disease) I73.9 Active 216361919 Problem Atherosclerosis of [place] co ronary artery of [place] heart without angina pectoris I25.10 Active 499380538827308 Problem Other congestive heart failure I50.9 Active 4 3088822 Problem 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 Active 780508371180671 ALLERGIES Allergen (clinical drug ingredient) Drug/Non Drug Allergy do cumented on EMR Reaction Allergy Type Onset Date Status moxifloxacin Avelox Tachycardia Drug Allergy Active Sulfa (for allergy use only) [place] goofy Drug Allergy Active Seasonal Dyspnea Non Drug Allergy Active ENCOUNTERS from 1945 to 2020-05-05 Encounter Location Date Provider Diagnosis [facility] [place] [place] [address] 23 Mar Hansa Schoeneman Atrial fibrillation I48.91 and shelter (current) use of anticoagulants Z79.01 IMMUNIZATIONS Vaccine Route Administration Date Status Influenza (High Dose 65 & up) IM Intramuscular Apr 16, 2017 A dministered Influenza (High Dose 65 & up) IM Intramuscular Feb 23, 2015 A dministered Influenza (18 yrs & older) Flublok IM Intramuscular Jan 20 0 Administered Influenza (High Dose 65 & up) Unknown Feb 28, 2016 Ad ministered Pneumococcal Adult 0.5mL (Pneumovax 23) IM Intramuscular Jun 14, 2011 Administered Pneumococcal 0.5mL (Prevnar 13) IM Intramuscular Dec 01, 2014 Administered Influenza (18 yrs & older) Flublok IM Intramuscular Mar 08, 2018 Administered Influenza (6mo & up) Fluzone IM [...] Education Language: Question Answer Notes Languages spoken: Czech Temple: Question Answer Notes Temple No gnosticism beliefs that would impact health care. Sexual [...] Notes Start Da te End Date Status Omeprazole 40 MG 1 capsule 30 minutes before morning meal Orally Once a day for 30 day(s) Mar, Active PROCEDURES No Information RESULTS Component Value Reference Range PT-INR Fingerstick Reviewed date:04/21/2020 10:33:36 Interpretation: Performing Lab:[facility], ,[facility]01 INR 2.7 Verified Patient's Name and yes Current Dose 1 5mgMWF Current Dose 2 2.5ROW Tab Strength 5mg tabs Indication for Anticoagulation AFIB Recent Bleeding no Internal QC Acceptable (Y/N) yes Therapeutic Range 2-3 Education Given (Date / Initials) New Dose 1 no change New Dose 2 Weekly Total Next PT-INR 2 weeks - Pt aware - REASON FOR VISIT FS INR [...] 02/2011 Surgical History cath with [facility] : [facility] 2011 Surgical History Right hip replacement 10/16/18 Hospitalization History Pneumonia MAR 2012 Hospitalization History [facility]-lnpxp infection 02/21/15 Hospitalization History [facility]-ER for sore on buttocks 12/13/15 Hospitalization History W/surgery-in [place] 10/16/18 Hospitalization History ER-prod. cough 12/04/18 Hospitalization History [facility]-ER-SOB,going "goofy" 02/09/19 Hospitalization History [facility]-almost passed out-5-6 times in a row-AFib? 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
--- OUTSIDE RECORDS SUMMARY | 2020-05-18 01:19 | CCD ---
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 Active 887999354 Problem Colon cancer screening Z12.11 Active 312139647 Problem Atrial fibrillation I48.91 Active 28038440 Problem HTN (hypertension) I10 Active 91508860 Problem COPD (chronic obstructive pulmonary disease) J44.9 Active 158085766 Problem Kyphosis M40.209 Active 100874240 Problem Hyperlipidemia E78.5 Active 24827188 Problem Primary osteoarthritis of right hip M16.11 Acti ve 847782055 Problem MRSA (methicillin resistant staph aureus) culture positive Z22.322 Active 750617978 Problem Stasis dermatitis of both legs I87.2 Active 3 6676484 Problem COPD exacerbation J44.1 Active 152720194 Problem Reactive depression F32.9 Active 38606605 Problem Gastroesophageal reflux dise ase, unspecified whether esophagitis present K21.9 Active 245704160 Problem Recurrent epistaxis R04.0 Active 31719362 Problem PVD (peripheral vascular disease) I73.9 Active 379040602 Problem 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 Active 550022553268529 Problem Other congestive heart failure I50.9 Active 4 4014542 Problem 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 Active 559139416423842 ALLERGIES Allergen (clinical drug ingredient) Drug/Non Drug Allergy do cumented on EMR Reaction Allergy Type Onset Date Status moxifloxacin Avelox Tachycardia Drug Allergy Active Sulfa (for allergy use only) [place] goofy Drug Allergy Active Seasonal Dyspnea Non Drug Allergy Active ENCOUNTERS from 1945 to 2020-05-14 Encounter Location Date Provider Diagnosis [facility] [place] [address] [id number] 15 Apr, 2020 Robert Meridah IMMUNIZATIONS Vaccine Route Administration Date Status Influenza [...] Education Language: Question Answer Notes Languages spoken: Icelandic Sabianist: Question Answer Notes Sabianist No oriental orthodox beliefs that would impact health care. [...] 4 ho ur prn prn wheezing Active Ipratropium [place] 0.02 % 1 vial via nebulizer q4h prn wheezing Active Antihistamine 30-2.5 MG 1 Orally Prn [...] every 5 min for chest pain Active Metoprolol Tartrate 25 mg 1 tablet Orally Twice a day for 90 day(s) Active Warfarin Sodium 5 MG 1 tablet Orally 1/2 tab x 3 days-whole tab ROW Active Omeprazole 40 MG 1 capsule 30 minutes before morning meal Orally Once a day for 30 day(s) Mar, Active Hydrocodone-Acetaminophen 5-325 MG 1 tablet as needed Orally every 6 hrs MDD=4 August, Active Paroxetine HCl 20 MG 1 tablet [...] Information RESULTS No Results REASON FOR VISIT SCRIPT MEDICAL (GENERAL) HISTORY Type Description Date Medical [...] 02/2011 Surgical History cath with [facility] : [facility] 2011 Surgical History Right hip replacement 10/16/18 Hospitalization History Pneumonia [facility] 2012 Hospitalization History [facility] infection 02/21/15 Hospitalization History [facility]-ER for sore on buttocks 12/13/15 Hospitalization History W/surgery-in [place] 10/16/18 Hospitalization History ER-prod. cough 12/04/18 Hospitalization History [facility]-ER-SOB,going "goofy" 02/09/19 Hospitalization History [facility]-almost passed out-5-6 times in a row-AFib? [...] Name:Hansa Mckeon, 2020-04 07:00:00 AM, [address] [place], [address], Insurance Providers Payer Name Payer Address Payer Phone Insured Name Patient Relati onship to Insured Coverage Start Date Coverage End Date MEDICARE BLUE O [address] [id number] ANA MAYO self 2018
--- OUTSIDE RECORDS SUMMARY | 2020-05-18 01:20 | CCD ---
Author Author [facility] Organization [facility] Address Unknown Phone Unavailable Care Team Providers Care Core Cutter Name Role Phone Farzad ARANDA Unavailable Unavailable LIBERTADENOFarzad Victoria Unavailable Unavailable LIBERTADENOFarzad Victoria PA Unavailable Unavailable SYMENOWFarzad PA Unavailable Unavailable SYMENOWFarzad CHRISTKAROLINA PA Unavailable Unavailable SYMENOWFarzad PA Unavailable Unavailable SYMENOWFarzad CHRISTOPHER PA Unavailable Unavailable SYMENOWFarzad CHRISTOPHER PA Unavailable Unavailable SYMENOW, G CHRISTOPHER PA Unavailable Unavailable SYMENOW, G CHRISTOPHER PA Unavailable Unavailable SYMENOW G CHRISTOPHER PA Unavailable Unavailable SYMENOWFarzad CHRISTOPHER PA Unavailable Unavailable SYMENOW, G CHRISTOPHER PA Unavailable Unavailable SYMENOW, G CHRISTOPHER PA Unavailable Unavailable SYMENOW, G CHRISTOPHER PA Unavailable Unavailable LIBERTADENOW, G CHRISTOPHER PA Unavailable Unavailable LIBERTADENOJulien, Farzad CHRISTOPHER PA Unavailable Unavailable Sofia Stewart MD Unavailable Unavailable Sofia Stewart MD Unavailable Unavailable Sofia Stewart MD Unavailable Unavailable Sofia Stewart MD Unavailable Unavailable Sofia Stewart MD Unavailable Unavailable Sofia Stewart MD Unavailable Unavailable Sofia Stewart MD Unavailable Unavailable Sofia Stewart MD Unavailable Unavailable Sofia Stewart MD Unavailable Unavailable Sofia Stewart MD Unavailable Unavailable Sofia Stewart MD Unavailable Unavailable Sofia Stewart MD Unavailable Unavailable Sofia Stewart MD Unavailable Unavailable Sofia Stewart MD Unavailable Unavailable Sofia Stewart MD Unavailable Unavailable Sofia Stewart MD Unavailable Unavailable Sofia Stewart MD Unavailable Unavailable Sofia Stewart MD Unavailable Unavailable Sofia Stewart MD Unavailable Unavailable Sofia Stewart MD Unavailable Unavailable Sofia Stewart MD Unavailable Unavailable Sofia Stewart MD Unavailable Unavailable Sofia Stewart MD Unavailable Unavailable Sofia Stewart MD Unavailable Unavailable Sofia Stewart MD Unavailable Unavailable Sofia Stewart MD Unavailable Unavailable Sofia Stewart MD Unavailable Unavailable Sofia Stewart MD Unavailable Unavailable Sofia Stewart MD Unavailable Unavailable Sofia Stewart MD Unavailable Unavailable Sofia Stewart MD Unavailable Unavailable Sofia Stewart MD Unavailable Unavailable Sofia Stewart MD Unavailable Unavailable Sofia Stewart MD Unavailable Unavailable Sofia Stewart MD Unavailable Unavailable Sofia Stewart MD Unavailable Unavailable Sofia Stewart MD Unavailable Unavailable Sofia Stewart MD Unavailable Unavailable Sofia Stewart MD Unavailable Unavailable Sofia Stewart MD Unavailable Unavailable Sofia Stewart MD Unavailable Unavailable Sofia Stewart MD Unavailable Unavailable Sofia Stewart MD Unavailable Unavailable Sofia Stewart MD Unavailable Unavailable Sofia Stewart MD Unavailable Unavailable Sofia Stewart MD Unavailable Unavailable Sofia Stewart MD Unavailable Unavailable Sofia Stewart MD Unavailable Unavailable Sofia Stewart MD Unavailable Unavailable Sofia Stewart MD Unavailable Unavailable Sofia Stewart MD Unavailable Unavailable Sofia Stewart MD Unavailable Unavailable Sofia Stewart MD Unavailable Unavailable Sofia Stewart MD Unavailable Unavailable Sofia Stewart MD Unavailable Unavailable Sofia Stewart MD Unavailable Unavailable Sofia Stewart MD Unavailable Unavailable SachabeKavya Coon MD Unavailable Unavailable SachabeKavya Coon MD Unavailable Unavailable SachabeKavya Coon MD Unavailable Unavailable Sachabek-Kavya Alva MD Unavailable Unavailable SachabekKavya Kaiser MD Unavailable Unavailable Sachabek-Kavya Alva MD Unavailable Unavailable SachabekKavya Kaiser MD Unavailable Unavailable SachabekKavya Kaiser MD Unavailable Unavailable Sachabek-Kavya Alva MD Unavailable Unavailable SachabekKavya Kaiser MD Unavailable Unavailable SachabekKavya Kaiser MD Unavailable Unavailable SachabeKavya Coon MD Unavailable Unavailable SachabeKavya Coon MD Unavailable Unavailable SachabeKavya Coon MD Unavailable Unavailable Sachabek-Kavya Alva MD Unavailable Unavailable SachabeKavya Coon MD Unavailable Unavailable Kavya Epstein MD Unavailable Unavailable SachabeKavya Coon MD Unavailable Unavailable SachabeKavya Coon MD Unavailable Unavailable SachabekKavya Kaiser MD Unavailable Unavailable Kavya Epstein MD Unavailable Unavailable Kavya Epstein MD Unavailable Unavailable SachabeKavya Coon MD Unavailable Unavailable SachabeKavya Coon MD Unavailable Unavailable SachabekKavya Kaiser MD Unavailable Unavailable SachabekKavya Kaiser MD Unavailable Unavailable SachabeKavya Coon MD Unavailable Unavailable SachabeKavya Coon MD Unavailable Unavailable SachabeKavya Coon MD Unavailable Unavailable SachabekKavya Kaiser MD Unavailable Unavailable Kavya Epstein MD Unavailable Unavailable SachabeKavya Coon MD Unavailable Unavailable SachabekKavya Kaiser MD Unavailable Unavailable Sachabek-Kavya Alva MD Unavailable Unavailable Tete, Kavya Flynn MD Unavailable Unavailable Domanju-Lang, V Rina CESAR Unavailable Unavailable Grybowski, T Yoseph Unavailable Grybowski, T Yoseph Unavailable Grybowski, T Yoseph Unavailable Grybowski, T Yoseph Unavailable Grybowski, T Yoseph Unavailable Grybowski, T Yoseph Unavailable Grybowski, T Yoseph Unavailable Grybowski, T Yoseph Unavailable Grybowski, T Yoseph Unavailable Grybowski, T Yoseph Unavailable Grybowski, T Yoseph Unavailable Grybowski, T Yoseph Unavailable Grybowski, T Yoseph Unavailable Grybowski, T Yoseph Unavailable Grybowski, T Yoseph Unavailable Grybowski, T Yoseph Unavailable Grybowski, T Yoseph Unavailable Grybowski, T Yoseph Unavailable Grybowski, T Yoseph Unavailable Grybowski, T Yoseph Unavailable Grybowski, T Yoseph Unavailable Grybowski, T Yoseph Unavailable Grybowski, T Yoseph Unavailable Grybowski, T Yoseph Unavailable Grybowski, T Yoseph Unavailable Grybowski, T Yoseph Unavailable Grybowski, T Yoseph Unavailable + Grybowski, T Yoseph Unavailable + Grybowski, T Yoseph Unavailable + Grybowski, T Yoseph Unavailable + Grybowski, T Yoseph Unavailable + Grybowski, T Yoseph Unavailable + Grybowski, T Yoseph Unavailable + Grybowski, T Yoseph Unavailable + Grybowski, T Yoseph Unavailable + Grybowski, T Yoseph Unavailable + Grybowski, T Yoseph Unavailable + Grybowski, T Yoseph Unavailable + Grybowski, T Yoseph Unavailable + Grybowski, T Yoseph Unavailable + Alberry, D Nedra INSURANCE OPERATIONS REP Unavailable Unavailable Alberry, D Nedra INSURANCE OPERATIONS REP Unavailable Unavailable Alberry, D Nedra INSURANCE OPERATIONS REP Unavailable Unavailable Alberry, D Nedra INSURANCE OPERATIONS REP Unavailable Unavailable Alberry, D Nedra INSURANCE OPERATIONS REP Unavailable Unavailable Alberry, D Nedra INSURANCE OPERATIONS REP Unavailable Unavailable Alberry, D Nedra INSURANCE OPERATIONS REP Unavailable Unavailable Alberry, D Nedra INSURANCE OPERATIONS REP Unavailable Unavailable Alberry, D Nedra INSURANCE OPERATIONS REP Unavailable Unavailable Alberry, D Nedra INSURANCE OPERATIONS REP Unavailable Unavailable Alberry, D Nedra INSURANCE OPERATIONS REP Unavailable Unavailable Alberry, D Nedra INSURANCE OPERATIONS REP Unavailable Unavailable Alberry, D Nedra INSURANCE OPERATIONS REP Unavailable Unavailable Alberry, D Nedra INSURANCE OPERATIONS REP Unavailable Unavailable Alberry, D Nedra INSURANCE OPERATIONS REP Unavailable Unavailable Alberry, D Nedra INSURANCE OPERATIONS REP Unavailable Unavailable Alberry, D Nedra INSURANCE OPERATIONS REP Unavailable Unavailable Alberry, D Nedra INSURANCE OPERATIONS REP Unavailable Unavailable Alberry, D Nedra INSURANCE OPERATIONS REP Unavailable Unavailable Alberry, D Nedra INSURANCE OPERATIONS REP Unavailable Unavailable Alberry, D Nedra INSURANCE OPERATIONS REP Unavailable Unavailable Alberry, D Nedra INSURANCE OPERATIONS REP Unavailable Unavailable Alberry, D Nedra INSURANCE OPERATIONS REP Unavailable Unavailable Alberry, D Nedra INSURANCE OPERATIONS REP Unavailable Unavailable Alberry, D Nedra INSURANCE OPERATIONS REP Unavailable Unavailable Alberry, D Nedra INSURANCE OPERATIONS REP Unavailable Unavailable Alberry, D Nedra INSURANCE OPERATIONS REP Unavailable Unavailable Alberry, D Nedra INSURANCE OPERATIONS REP Unavailable Unavailable Alberry, D Nedra INSURANCE OPERATIONS REP Unavailable Unavailable Alberry, D Nedra INSURANCE OPERATIONS REP Unavailable Unavailable Alberry, D Nedra INSURANCE OPERATIONS REP Unavailable Unavailable Alberry, D Nedra INSURANCE OPERATIONS REP Unavailable Unavailable Alberry, D Nedra INSURANCE OPERATIONS REP Unavailable Unavailable Alberry, D Nedra INSURANCE OPERATIONS REP Unavailable Unavailable Alberry, D Nedra INSURANCE OPERATIONS REP Unavailable Unavailable Alberry, D Nedra INSURANCE OPERATIONS REP Unavailable Unavailable Alberry, D Nedra INSURANCE OPERATIONS REP Unavailable Unavailable Alberry, D Nedra INSURANCE OPERATIONS REP Unavailable Unavailable Alberry, D Nedra INSURANCE OPERATIONS REP Unavailable Unavailable Alberry, D Nedra INSURANCE OPERATIONS REP Unavailable Unavailable Alberry, D Nedra INSURANCE OPERATIONS REP Unavailable Unavailable Alberry, D Nedra INSURANCE OPERATIONS REP Unavailable Unavailable Alberry, D Nedra INSURANCE OPERATIONS REP Unavailable Unavailable Alberry, D Nedra INSURANCE OPERATIONS REP Unavailable Unavailable Alberry, D Nedra INSURANCE OPERATIONS REP Unavailable Unavailable Alberry, D Nedra INSURANCE OPERATIONS REP Unavailable Unavailable Alberry, D Nedra INSURANCE OPERATIONS REP Unavailable [facility] Unavailable Unavailable Kavya Epstein MD Unavailable Unavailable Kavya Epstein MD Unavailable Unavailable Kavya Epstein MD Unavailable Unavailable Kavya Epstein MD Unavailable Unavailable Kavya Epstein MD Unavailable Unavailable Kavya Epstein MD Unavailable Unavailable Kavya Epstein MD Unavailable Unavailable Kavya Epstein MD Unavailable Unavailable Kavya Epstein MD Unavailable Unavailable Kavya Epstein MD Unavailable Unavailable Kavya Epstein MD Unavailable Unavailable Kavya Epstein MD Unavailable Unavailable Kavya Epstein MD Unavailable Unavailable Kavya Epstein MD Unavailable Unavailable Kavya Epstein MD Unavailable Unavailable Kavya Epstein MD Unavailable Unavailable Kavya Epstein MD Unavailable Unavailable Kavya Epstein MD Unavailable Unavailable Kavya Epstein MD Unavailable Unavailable Kavya Epstein MD Unavailable Unavailable Kavya Epstein MD Unavailable Unavailable Dombek-Lang, V Rina MD Unavailable Unavailable Dombek-Lang, V Rina MD Unavailable Unavailable Dombek-Lang, V Rina MD Unavailable Unavailable Dombek-Lang, V Rina MD Unavailable Unavailable Dombek-Lang, V Rina MD Unavailable Unavailable Dombek-Lang, V Rina MD Unavailable Unavailable Dombek-Lang, V Rina MD Unavailable Unavailable Dombek-Lang, V Rina MD Unavailable Unavailable Dombek-Lang, V Rina MD Unavailable Unavailable Dombek-Lang, V Rina MD Unavailable Unavailable Dombek-Lang, V Rina MD Unavailable Unavailable Dombek-Lang, V Rina MD Unavailable Unavailable Dombek-Lang, V Rina MD Unavailable Unavailable Dombek-Lang, V Rina MD Unavailable Unavailable Dombek-Lang, V Rina MD Unavailable Unavailable Re-disclosure Warning The records that you are about to access may contain information from federally-assisted alcohol or drug abuse programs. If such information is present, then the following federally mandated warning applies: This information has been disclosed to you from records protected by federal confidentiality rules (42 CFR part 2). The federal rules prohibit you from making any further disclosure of this information unless further disclosure is expressly permitted by the written consent of the person to whom it pertains or as otherwise permitted by 42 CFR part 2. A general authorization for the release of medical or other information is NOT sufficient for this purpose. The Federal rules restrict any use of the information to criminally investigate or prosecute any alcohol or drug abuse patient.The records that you are about to access may contain highly sensitive health information, the redisclosure of which is protected by Article 27-F of the [facility] Public Health law. If you continue you may have access to information: Regarding HIV / AIDS; Provided by facilities licensed or operated by the [facility] Office of Mental Health; or Provided by the [facility] Office for People With Developmental Disabilities. If such information is present, then the following [facility] mandated warning applies: This information has been disclosed to you from confidential records which are protected by state law. State law prohibits you from making any further disclosure of this information without the specific written consent of the person to whom it pertains, or as otherwise permitted by law. Any unauthorized further disclosure in violation of state law may result in a fine or usp sentence or both. A general authorization for the release of medical or other information is NOT sufficient authorization for further disc losure. Allergies and Adverse Reactions Type Description Substance Reaction Status Data Source(s ) Drug allergy Avelox moxifloxacin Tachycardia Active eCW1 ([facility]) Seasonal Seasonal Seasonal Dyspnea Active eCW1 ([facility] includes the [facility]) Seasonal Seasonal Seasonal Dyspnea Active eCW1 ([facility] includes the [facility]) Family History Family Member Name Family Member Gender Family Member Status Date o f Status Description Data Source(s) Unknown Unknown Encounters Encounter Providers Location Date Indications Data Source(s ) Unknown [address] [facility] [id number] 05/14/2020 12:00:00 AM EST eCW1 ([facility]) Unknown [address] [facility] [id number] 05/07/2020 12:00:00 AM EST eCW1 ([facility]) Outpatient [address] [facility] [id number] 05/05/2020 12:00:00 AM EST eCW1 ([facility]) Outpatient [address] [facility] [id number] 04/21/2020 12:00:00 AM EST eCW1 ([facility]) (PT/INR TV) Telephone Encounter Visit [address] [place] [address] 04/08/2020 12:00:00 AM EST eCW1 ([facility]) Unknown [address] [facility] [id number] 04/08/2020 12:00:00 AM EST eCW1 ([facility]) Outpatient [address] [facility] [id number] 03/31/2020 12:00:00 AM EST eCW1 ([facility]) Unknown [address] [facility] [id number] 03/18/2020 12:00:00 AM EST eCW1 ([facility]) Outpatient [address] [facility] [id number] 03/17/2020 12:00:00 AM EST eCW1 ([facility]) [place] [address] [facility] [address] 02/18/2020 12:00:00 AM EDT eCW1 ([facility]) [place] [address] [facility] [address] 02/10/2020 12:00:00 AM EDT eCW1 ([facility]) [place] [address] [facility] [address] 02/03/2020 12:00:00 AM EDT eCW1 ([facility]) [place] [address] [facility] [address] 11/19/2019 12:00:00 AM EDT eCW1 ([facility]) [place] [address] [facility] [address] 11/12/2019 12:00:00 AM EDT eCW1 ([facility]) [place] [address] [facility] [address] 11/05/2019 12:00:00 AM EDT eCW1 ([facility]) [place] [address] [facility] [address] 10/24/2019 12:00:00 AM EDT eCW1 ([facility]) [place] [address] [facility] [address] 10/15/2019 12:00:00 AM EDT eCW1 ([facility]) [place] [address] [facility] [address] 09/17/2019 12:00:00 AM EDT eCW1 ([facility]) [facility] [address] [facility] [address] 09/17/2019 12:00:00 AM EDT eCW1 ([facility]) [facility] [address] [facility] [address] 09/03/2019 12:00:00 AM EDT eCW1 ([facility]) [facility] [place] [address] [facility] [address] 09/03/2019 12:00:00 AM EDT eCW1 ([facility]) [facility] [place] [address] [facility] [address] 08/20/2019 12:00:00 AM EDT eCW1 ([facility]) [facility] [place] [address] [place] [address], [place] [address] 08/20/2019 12:00:00 AM EDT eCW1 ([facility]) [facility] Tomas Corbett [address] [place] [address] 08/07/2019 12:00:00 AM EDT eCW1 ([facility]) [facility] [place] [address] [place] [address], [place] [address] 07/23/2019 12:00:00 AM EDT eCW1 ([facility]) [facility] [place] [address] [place] [address], [place] [address] 07/02/2019 12:00:00 AM EST eCW1 ([facility]) [facility] [place] [address] [place] [address], [place] [address] 06/18/2019 12:00:00 AM EST eCW1 ([facility]) [facility] [place] [address] [place] [address], [place] [address] 06/11/2019 12:00:00 AM EST eCW1 ([facility]) [facility] [address] [address] 06/01/2019 12:00:00 AM EST eCW1 ([facility]) [address] [address] 05/28/2019 12:00:00 AM EST eCW1 ([facility]) [address] [address] 05/27/2019 12:00:00 AM EST eCW1 ([facility]) [address] [address] 05/07/2019 12:00:00 AM EST eCW1 ([facility]) [address] [address] 05/01/2019 12:00:00 AM EST eCW1 ([facility]) Outpatient Attender: Sofia Stewart MDReferrer: Sofia JOSE-SJP 04/29/2019 09:08:58 AM EST - 04/29/2019 10:35:18 AM EST [facility] Outpatient Attender: Sofia JOSE-SJP.HIMANSHU 03/30 12:00:00 AM EST [address] [address] 04/03/2019 12:00:00 AM EST eCW1 ([facility]) [address] [address] 04/02/2019 12:00:00 AM EST eCW1 ([facility]) Outpatient Attender: Rina Epstein MDConsultant: [facility] [id number] 03/23/2019 07:05:00 PM [facility] Inpatient Attender: Rina Epstein MDAttender: SHAWN ARANDA PAAdmitter: Rina Epstein MDReferrer: Yoseph Duarte EMERGENCY [id number] 03/23/2019 12:24:00 PM EST - 03/24/2019 02:26:00 PM [facility] Patient discharged. Outpatient Attender: Nedra RUBIOP 0 12/26/2017 11:05:00 AM EDT - 12/26/2017 11:05:00 AM [facility] Immunizations Vaccine Date Status Description Data Source(s) influenza, recombinant, quadrIvalent,injectable, prese rvative free 01/21/2020 09:48:00 AM EDT completed eCW1 ([facility]) influenza, recombinant, quadrIvalent,injectable, prese rvative free 01/21/2020 09:48:00 AM EDT completed eCW1 ([facility]) influenza, recombinant, quadrIvalent,injectable, prese rvative free 01/21/2020 09:48:00 AM EDT completed eCW1 ([facility]) influenza, recombinant, quadrIvalent,injectable, prese rvative free 01/21/2020 09:48:00 AM EDT completed eCW1 ([facility]) influenza, recombinant, quadrIvalent,injectable, prese rvative free 01/21/2020 09:48:00 AM EDT completed eCW1 ([facility]) influenza, recombinant, quadrIvalent,injectable, prese rvative free 01/21/2020 09:48:00 AM EDT completed eCW1 ([facility]) influenza, recombinant, quadrIvalent,injectable, prese rvative free 01/21/2020 09:48:00 AM EDT completed eCW1 ([facility]) influenza, recombinant, quadrIvalent,injectable, prese rvative free 01/21/2020 09:48:00 AM EDT completed eCW1 ([facility]) influenza, recombinant, quadrIvalent,injectable, prese rvative free 01/21/2020 09:48:00 AM EDT completed eCW1 ([facility]) influenza, recombinant, quadrIvalent,injectable, prese rvative free 01/21/2020 09:48:00 AM EDT completed eCW1 ([facility]) Medications Medication Brand Name Start Date Product Form Dose Route Admi nistrative Instructions Pharmacy Instructions Status Indications Reaction Description Data Source(s) Omeprazole 40 MG Delayed Release Oral Capsule Omeprazole 40 MG 03/31/2020 12:00:00 AM EST active Omeprazo le 40 MG eCW1 ([facility]) Omeprazole 40 MG Delayed Release Oral Capsule Omeprazole 40 MG 03/31/2020 12:00:00 AM EST active Omeprazo le 40 MG eCW1 ([facility]) 40 mg 03/31/2020 12:00:00 AM EST capsule,delayed release (DR/EC) 30 TAKE ONE CAPSULE BY MOUTH EVERY MORNING 30 MINUTES BEFORE MORNING MEAL TAKE ONE CAPSULE BY MOUTH EVERY MORNING 30 MINUTES BEFORE MORNING MEAL SOLD: 03/31/2020 [facility] Omeprazole 40 MG Delayed Release Oral Capsule Omeprazole 40 MG 03/31/2020 12:00:00 AM EST active Omeprazo le 40 MG eCW1 ([facility]) Omeprazole 40 MG Delayed Release Oral Capsule Omeprazole 40 MG 03/31/2020 12:00:00 AM EST active Omeprazo le 40 MG eCW1 ([facility]) Omeprazole 40 MG Delayed Release Oral Capsule Omeprazole 40 MG 03/31/2020 12:00:00 AM EST active Omeprazo le 40 MG eCW1 ([facility]) Omeprazole 40 MG Delayed Release Oral Capsule Omeprazole 40 MG 03/31/2020 12:00:00 AM EST active Omeprazo le 40 MG eCW1 ([facility]) Omeprazole 40 MG Delayed Release Oral Capsule Omeprazole 40 MG 03/31/2020 12:00:00 AM EST active Omeprazo le 40 MG eCW1 ([facility]) 25 mg 03/10/2020 12:00:00 AM EST tablet 90 TAKE ONE TABLET BY MOUTH EVERY DAY TAKE ONE TABLET BY MOUTH EVERY DAY SOLD: 03/19/2020 [facility] 62.5-25 mcg/actuation 2020 12:00:00 AM EDT blister wit h device 60 INHALE ONE PUFF BY MOUTH EVERY DAY INHALE ONE PUFF BY MOUTH EVERY DAY SOLD: 02/18/2020 [facility] 62.5-25 mcg/actuation 2020 12:00:00 AM EDT blister wit h device 60 INHALE ONE PUFF BY MOUTH EVERY DAY INHALE ONE PUFF BY MOUTH EVERY DAY SOLD: 03/19/2020 [facility] 5 mg 02/04/2020 12:00:00 AM EDT tablet 180 TAKE ONE AND ONE-HALF TABLET BY MOUTH TWO DAYS OF THE WEEK AND ONE TABLET BY MOUTH ONCE DAILY THE REST OF THE WEEK TAKE ONE AND ONE-HALF TABLET BY MOUTH TW O DAYS OF THE WEEK AND ONE TABLET BY MOUTH ONCE DAILY THE REST OF THE WEEK SOLD: 2020 [facility] atorvastatin 40 MG Oral Tablet ATORVASTATIN CALCIUM 02/04/2020 1 2:00:00 AM EDT tablet 90 TAKE ONE TABLET BY MOUTH EVERY D AY TAKE ONE TABLET BY MOUTH EVERY DAY SOLD: 2020 [facility] 20 mg 01/28/2020 12:00:00 AM EDT tablet 90 TAKE ONE TABLET BY MOUTH EVERY MORNING TAKE ONE TABLET BY MOUTH EVERY MORNING SOLD: 2020 [facility] 90 mcg/actuation 11/24/2019 12:00:00 AM EDT aerosol powdr breath activated 1 INHALE ONE PUFF BY MOUTH FOUR TIMES A DAY NEEDED IN MORE ONE PUFF BY MOUTH FOUR TIMES A DAY NEEDED SOLD: 02/18/2020 [facility] 90 mcg/actuation 11/24/2019 12:00:00 AM EDT aerosol powdr breath activated 1 INHALE ONE PUFF BY MOUTH FOUR TIMES A DAY NEEDED IN MORE ONE PUFF BY MOUTH FOUR TIMES A DAY NEEDED SOLD: 12/12/2019 [facility] 90 mcg/actuation 11/24/2019 12:00:00 AM EDT aerosol powdr breath activated 1 INHALE ONE PUFF BY MOUTH FOUR TIMES A DAY NEEDED IN MORE ONE PUFF BY MOUTH FOUR TIMES A DAY NEEDED SOLD: 01/20/2020 [facility] 90 mcg/actuation 11/24/2019 12:00:00 AM EDT aerosol powdr breath activated 1 INHALE ONE PUFF BY MOUTH FOUR TIMES A DAY NEEDED IN MORE ONE PUFF BY MOUTH FOUR TIMES A DAY NEEDED SOLD: 03/29/2020 [facility] 90 mcg/actuation 11/24/2019 12:00:00 AM EDT aerosol powdr breath activated 1 INHALE ONE PUFF BY MOUTH FOUR TIMES A DAY NEEDED IN MORE ONE PUFF BY MOUTH FOUR TIMES A DAY NEEDED SOLD: 04/30/2020 [facility] 40 mg 11/10/2019 12:00:00 AM EDT tablet 90 TAKE ONE TABLET BY MOUTH EVERY DAY TAKE ONE TABLET BY MOUTH EVERY DAY SOLD: 11/12/2019 [facility] 25 mg 11/06/2019 12:00:00 AM EDT tablet 180 TAKE ONE TABLET BY MOUTH TWICE A DAY TAKE ONE TABLET BY MOUTH TWICE A DAY SOLD: 11/12/2019 [facility] 25 mg 11/06/2019 12:00:00 AM EDT tablet 180 TAKE ONE TABLET BY MOUTH TWICE A DAY TAKE ONE TABLET BY MOUTH TWICE A DAY SOLD: 2020 [facility] Prednisone 10 MG Oral Tablet PredniSONE 10 MG PredniSONE 10 MG 10/24/2019 12:00:00 AM EDT 4.0 {tablets} active P redniSONE 10 MG eCW1 ([facility]) Prednisone 10 MG Oral Tablet PredniSONE 10 MG PredniSONE 10 MG 10/24/2019 12:00:00 AM EDT 4.0 {tablets} active P redniSONE 10 MG eCW1 ([facility]) Prednisone 10 MG Oral Tablet PredniSONE 10 MG PredniSONE 10 MG 10/24/2019 12:00:00 AM EDT 4.0 {tablets} active P redniSONE 10 MG eCW1 ([facility]) Prednisone 10 MG Oral Tablet PredniSONE 10 MG PredniSONE 10 MG 10/24/2019 12:00:00 AM EDT 4.0 {tablets} active P redniSONE 10 MG eCW1 ([facility]) Prednisone 10 MG Oral Tablet PredniSONE 10 MG PredniSONE 10 MG 10/24/2019 12:00:00 AM EDT 4.0 {tablets} active P redniSONE 10 MG eCW1 ([facility]) Prednisone 10 MG Oral Tablet PredniSONE 10 MG PredniSONE 10 MG 10/24/2019 12:00:00 AM EDT 4.0 {tablets} active P redniSONE 10 MG eCW1 ([facility]) Prednisone 10 MG Oral Tablet PredniSONE 10 MG PredniSONE 10 MG 10/24/2019 12:00:00 AM EDT 4.0 {tablets} active P redniSONE 10 MG eCW1 ([facility]) Prednisone 10 MG Oral Tablet PredniSONE 10 MG PredniSONE 10 MG 10/24/2019 12:00:00 AM EDT 4.0 {tablets} active P redniSONE 10 MG eCW1 ([facility]) Prednisone 10 MG Oral Tablet PredniSONE 10 MG PredniSONE 10 MG 10/24/2019 12:00:00 AM EDT 4.0 {tablets} active P redniSONE 10 MG eCW1 ([facility]) Prednisone 10 MG Oral Tablet PredniSONE 10 MG PredniSONE 10 MG 10/24/2019 12:00:00 AM EDT 4.0 {tablets} active P redniSONE 10 MG eCW1 ([facility]) Prednisone 10 MG Oral Tablet PredniSONE 10 MG PredniSONE 10 MG 10/24/2019 12:00:00 AM EDT 4.0 {tablets} active P redniSONE 10 MG eCW1 ([facility]) Prednisone 10 MG Oral Tablet PredniSONE 10 MG PredniSONE 10 MG 10/24/2019 12:00:00 AM EDT 4.0 {tablets} active P redniSONE 10 MG eCW1 ([facility]) Prednisone 10 MG Oral Tablet PredniSONE 10 MG PredniSONE 10 MG 10/24/2019 12:00:00 AM EDT 4.0 {tablets} active P redniSONE 10 MG eCW1 ([facility]) 10 mg 10/24/2019 12:00:00 AM EDT tablet 50 TAKE FOUR TABLETS BY MOUTH EVERY DAY FOR 5 DAYS, THEN 3 DAILY FOR 5 DAYS, THEN 2 DAILY FOR 5 DAYS, THEN 1 DAILY THEREAFTER TAKE FOUR TABLETS BY MOUTH EVERY DAY FOR 5 DAYS, THEN 3 DAILY FOR 5 DAYS, THEN 2 DAILY FOR 5 DAYS, THEN 1 DAILY THEREAFTER SOLD: 10/24/2019 [facility] 0.02 % 09/17/2019 12:00:00 AM EDT solution 375 INHALE ONE VIAL VIA NEBULIZER BY MOUTH EVERY 4 HOURS NEEDED FOR WHEEZING VIA NEBULIZER INHALE ONE VIAL VIA NEBULIZER BY MOUTH EVERY 4 HOURS NEEDED FOR WHEEZING VIA NEBULIZER SOLD: 09/23/2019 [facility] 25 mg 09/17/2019 12:00:00 AM EDT tablet 90 TAKE ONE TABLET BY MOUTH EVERY DAY TAKE ONE TABLET BY MOUTH EVERY DAY SOLD: 12/12/2019 [facility] 2.5 mg /3 mL (0.083 %) 09/17/2019 12:00:00 AM EDT solu tion for nebulization 375 INHALE THE CONTENTS OF ONE V IAL VIA NEBULIZER EVERY 4 HOURS NEEDED FOR WHEEZING INHALE THE CONTENTS OF ONE VIAL VIA NEBU LIZER EVERY 4 HOURS NEEDED FOR WHEEZING SOLD: 09/23/2019 [facility] 25 mg 09/17/2019 12:00:00 AM EDT tablet 90 TAKE ONE TABLET BY MOUTH EVERY DAY TAKE ONE TABLET BY MOUTH EVERY DAY SOLD: 09/23/2019 [facility] 20 mg 08/07/2019 12:00:00 AM EDT tablet 90 TAKE ONE TABLET BY MOUTH EVERY MORNING TAKE ONE TABLET BY MOUTH EVERY MORNING SOLD: 08/13/2019 [facility] 20 mg 08/07/2019 12:00:00 AM EDT tablet 90 TAKE ONE TABLET BY MOUTH EVERY MORNING TAKE ONE TABLET BY MOUTH EVERY MORNING SOLD: 11/12/2019 [facility] 40 mg 08/07/2019 12:00:00 AM EDT tablet 90 TAKE ONE TABLET BY MOUTH EVERY DAY TAKE ONE TABLET BY MOUTH EVERY DAY SOLD: 08/13/2019 [facility] 90 mcg/actuation 06/19/2019 12:00:00 AM EST aerosol powdr breath activated 1 INHALE ONE PUFF BY MOUTH FOUR TIMES A DAY NEEDED IN MORE ONE PUFF BY MOUTH FOUR TIMES A DAY NEEDED SOLD: 06/19/2019 [facility] 62.5-25 mcg/actuation 05/29/2019 12:00:00 AM EST blister wit h device 60 INHALE ONE PUFF BY MOUTH EVERY DAY INHALE ONE PUFF BY MOUTH EVERY DAY SOLD: 07/25/2019 [facility] 62.5-25 mcg/actuation 05/29/2019 12:00:00 AM EST blister wit h device 60 INHALE ONE PUFF BY MOUTH EVERY DAY INHALE ONE PUFF BY MOUTH EVERY DAY SOLD: 11/12/2019 [facility] 62.5-25 mcg/actuation 05/29/2019 12:00:00 AM EST blister wit h device 60 INHALE ONE PUFF BY MOUTH EVERY DAY INHALE ONE PUFF BY MOUTH EVERY DAY SOLD: 10/15/2019 [facility] 62.5-25 mcg/actuation 05/29/2019 12:00:00 AM EST blister wit h device 60 INHALE ONE PUFF BY MOUTH EVERY DAY INHALE ONE PUFF BY MOUTH EVERY DAY SOLD: 05/29/2019 [facility] 62.5-25 mcg/actuation 05/29/2019 12:00:00 AM EST blister wit h device 60 INHALE ONE PUFF BY MOUTH EVERY DAY INHALE ONE PUFF BY MOUTH EVERY DAY SOLD: 08/25/2019 [facility] 62.5-25 mcg/actuation 05/29/2019 12:00:00 AM EST blister wit h device 60 INHALE ONE PUFF BY MOUTH EVERY DAY INHALE ONE PUFF BY MOUTH EVERY DAY SOLD: 06/19/2019 [facility] 40 mg 05/07/2019 12:00:00 AM EST tablet 90 TAKE ONE TABLET BY MOUTH EVERY DAY TAKE ONE TABLET BY MOUTH EVERY DAY SOLD: 05/14/2019 [facility] 20 mg 05/07/2019 12:00:00 AM EST tablet 90 TAKE ONE TABLET BY MOUTH EVERY MORNING TAKE ONE TABLET BY MOUTH EVERY MORNING SOLD: 05/14/2019 [facility] 25 mg 03/15/2019 12:00:00 AM EST tablet 30 TAKE ONE TABLET BY MOUTH EVERY DAY TAKE ONE TABLET BY MOUTH EVERY DAY SOLD: 03/19/2019 [facility] 25 mg 03/15/2019 12:00:00 AM EST tablet 30 TAKE ONE TABLET BY MOUTH EVERY DAY TAKE ONE TABLET BY MOUTH EVERY DAY SOLD: 06/19/2019 [facility] 25 mg 03/15/2019 12:00:00 AM EST tablet 30 TAKE ONE TABLET BY MOUTH EVERY DAY TAKE ONE TABLET BY MOUTH EVERY DAY SOLD: 04/17/2019 [facility] 25 mg 03/15/2019 12:00:00 AM EST tablet 30 TAKE ONE TABLET BY MOUTH EVERY DAY TAKE ONE TABLET BY MOUTH EVERY DAY SOLD: 05/14/2019 [facility] 25 mg 03/15/2019 12:00:00 AM EST tablet 30 TAKE ONE TABLET BY MOUTH EVERY DAY TAKE ONE TABLET BY MOUTH EVERY DAY SOLD: 07/25/2019 [facility] 25 mg 03/15/2019 12:00:00 AM EST tablet 30 TAKE ONE TABLET BY MOUTH EVERY DAY TAKE ONE TABLET BY MOUTH EVERY DAY SOLD: 08/25/2019 [facility] 25 mg 02/13/2019 12:00:00 AM EDT tablet 180 TAKE ONE TABLET BY MOUTH TWICE A DAY TAKE ONE TABLET BY MOUTH TWICE A DAY SOLD: 06/19/2019 [facility] 25 mg 02/13/2019 12:00:00 AM EDT tablet 180 TAKE ONE TABLET BY MOUTH TWICE A DAY TAKE ONE TABLET BY MOUTH TWICE A DAY SOLD: 03/19/2019 [facility] 62.5-25 mcg/actuation 02/07/2019 12:00:00 AM EDT blister wit h device 60 INHALE ONE PUFF BY MOUTH EVERY DAY INHALE ONE PUFF BY MOUTH EVERY DAY SOLD: 01/12/2020 [facility] 62.5-25 mcg/actuation 02/07/2019 12:00:00 AM EDT blister wit h device 60 INHALE ONE PUFF BY MOUTH EVERY DAY INHALE ONE PUFF BY MOUTH EVERY DAY SOLD: 03/19/2019 [facility] 62.5-25 mcg/actuation 02/07/2019 12:00:00 AM EDT blister wit h device 60 INHALE ONE PUFF BY MOUTH EVERY DAY INHALE ONE PUFF BY MOUTH EVERY DAY SOLD: 12/12/2019 [facility] 90 mcg/actuation 01/13/2019 12:00:00 AM EDT aerosol powdr breath activated 1 INHALE ONE PUFF BY MOUTH FOUR TIMES A DAY NEEDED IN MORE ONE PUFF BY MOUTH FOUR TIMES A DAY NEEDED SOLD: 08/13/2019 [facility] 90 mcg/actuation 01/13/2019 12:00:00 AM EDT aerosol powdr breath activated 1 INHALE ONE PUFF BY MOUTH FOUR TIMES A DAY NEEDED IN MORE ONE PUFF BY MOUTH FOUR TIMES A DAY NEEDED SOLD: 03/19/2019 [facility] 90 mcg/actuation 01/13/2019 12:00:00 AM EDT aerosol powdr breath activated 1 INHALE ONE PUFF BY MOUTH FOUR TIMES A DAY NEEDED IN OMRE ONE PUFF BY MOUTH FOUR TIMES A DAY NEEDED SOLD: 10/15/2019 [facility] 5 mg 12/05/2018 12:00:00 AM EDT tablet 146 TAKE 1-2 TABLETS BY MOUTH DAILY DIRECTED TAKE 1-2 TABLETS BY MOUTH DAILY DIRECTED SOLD: 04/17/2019 [facility] Insurance Providers Payer name Policy type / Coverage type Policy ID Covered green party ID Covered green party's relationship to page Policy Page Plan Information MEDICARE BLUE PPO 306 [id number] SP [id number] MEDICARE BLUE PPO 306 [id number] SP [id number] EXCELLUS [employer] MEDICARE [id number] [place]ice [id number] [facility]CELLUS [facility] [id number] S [id number] [facility]CE[facility] [id number] S [id number] ANSI-Medicare Part B [id number] ANSI-Medicare Part B [id number] ANSI-Medicare Part B [id number] ANSI-Medicare Part B [id number] ANSI-Medicare Part B [id number] ANSI-Medicare Part B [id number] ANSI-Medicare Part B [id number] ANSI-Medicare Part B [id number] ANSI-Medicare Part B [id number] ANSI-Medicare Part B [id number] ANSI-Medicare Part B [id number] ANSI-Medicare Part B [id number] ANSI-Medicare Part B [id number] ANSI-Medicare Part B [id number] ANSI-Medicare Part B [id number] ANSI-Medicare Part B [id number] ANSI-Medicare Part B [id number] ANSI-Medicare Part B [id number] ANSI-Medicare Part B [id number] ANSI-Medicare Part B [id number] ANSI-Medicare Part B [id number] ANSI-Medicare Part B [id number] ANSI-Medicare Part B [id number] ANSI-Medicare Part B [id number] [employer]BS B [id number] S VYM [id number] ANSI-Medicare Part B [id number] ANSI-Medicare Part B [id number] [place]BS [place] [id number] S VYM [id number] [facility] MEDICARE DIVISION [id number] S [id number] MEDICARE - [place] [id number] S [id number] ANSI-Medicare Part B [id number] ANSI-Medicare Part B [id number] [place] [id number] S [id number] ANSI-Medicare Part B [id number] ANSI-Medicare Part B [id number] MEDICARE [id number] SP [id number] MEDICARE BLUE PPO 306 [id number] SP [id number] MEDICARE BLUE PPO 306 [id number] SP [id number] MEDICARE BLUE PPO 306 [id number] SP [id number] MEDICARE BLUE PPO 306 [id number] SP [id number] MEDICARE BLUE PPO 306 [id number] SP [id number] SELF PAY ONLY 0000 SP 0000 MEDICARE BLUE PPO 306 [id number] SP [id number] [place] Primary Self Medicare Advantage BCBS Commercial Self MEDICARE UNAVAILABLE SP UNAVAILA BLE BCBS [place] PPO 302/307 [id number] SP [id number] [place] 306/806 [id number] SP [id number] MEDICARE BLUE PPO 306 [id number] SP [id number] EXCELL[employer] BCBS P [id number] S [id number] SELF PAY UNAVAILABLE SP UNAVAILA BLE BCBS [place] PPO 302/307 [id number] SP [id number] BLUE CROSS BLUE SHIELD-O/P [id number] 18 [id number] MEDICARE -O/P [id number] 18 [id number] BLUE CROSS BLUE SHIELD-O/P [id number] Problems, Conditions, and Diagnoses Code Display Name Description Problem Type Effective Dates Data Source(s) K21.9 [id number] Gastroesophageal ref lux disease, unspecified whether esophagitis present Problem 03/31/2020 12:00:00 AM EST eCW1 ([facility]) J44.1 Acute exacerbation of chronic bronchitis COPD exacerba tion Problem 10/24/2019 12:00:00 AM EDT eCW1 ([facility]) M19.011 [id number] 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 Problem 06/18/2019 12:00:00 AM EST eCW1 ([facility]) M19.011 [id number] 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 Problem 06/18/2019 12:00:00 AM EST eCW1 ([facility]) I50.9 Heart failure, unspecified Heart failure, unspecified Diagnosis 04/29/2019 09:08:58 AM EST [facility] I48.91 Unspecified atrial fibrillation Unspecified atri al fibrillation Diagnosis 04/29/2019 09:08:58 AM [facility] I25.10 Atherosclerotic heart diseas e of [place] coronary artery without angina pectoris Atherosclerotic heart disease of [place] Diagnosis 04/29/2019 09:08:58 AM [facility] Z95.5 Presence of coronary angioplasty implant and graft PRESENCE OF CORONARY ANGIOPLASTY IMPLANT AND GRAFT Diagnosis 03/23/2019 12:24:00 PM [facility] Z87.891 Personal history of nicotine dependence PERSONAL HISTORY OF NICOTINE DEPENDENCE Diagnosis 03/23/2019 12:24:00 PM [facility] 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 inhaled stero ids PENITENTIARY (CURRENT) USE OF INHALED STEROIDS Diagnosis 03/23/2019 12:24:00 PM [facility] Z79.01 FDC (current) use of anticoagulant s PENITENTIARY (CURRENT) USE OF ANTICOAGULANTS Diagnosis 03/23/2019 12:24:00 PM [facility] J44.9 Chronic obstructive pulmonary disease, u nspecified CHRONIC OBSTRUCTIVE PULMONARY DISEASE, UNSPECIFIED Diagnosis 03/23/2019 12:24:00 PM [facility] M19.90 Unspecified osteoarthritis, unspecified site UNSPECIFIED OSTEOARTHRITIS, UNSPECIFIED SITE Diagnosis 03/23/2019 12:24:00 PM [facility] I48.20 CHRONIC ATRIAL FIBRILLATION, UNSPECIFIED CHRONIC ATRIAL FIBRILLATION, UNSPECIFIED Diagnosis 03/23/2019 12:24:00 PM [facility] I25.2 Old myocardial infarction OLD MYOCARDIAL INFARCTION Di agnosis 03/23/2019 12:24:00 PM [facility] I50.9 Heart failure, unspecified HEART FAILURE, UNSPECIFIED Diagnosis 03/23/2019 12:24:00 PM [facility] I11.0 Hypertensive heart disease with heart fa ilure HYPERTENSIVE HEART DISEASE WITH HEART FAILURE Diagnosis 03/23/2019 12:24:[facility] I25.9 Chronic ischemic heart disease, unspecif ied CHRONIC ISCHEMIC HEART DISEASE, UNSPECIFIED Diagnosis 03/23/2019 12:24:00 PM [facility] R26.2 Difficulty in walking, not elsewhere cla ssified DIFFICULTY IN WALKING, NOT ELSEWHERE CLASSIFIED Diagnosis 03/23/2019 12:24:00 PM [facility] R55 Syncope and collapse SYNCOPE AND COLLAPSE Diagnosis 03/23/2019 12:24:00 PM [facility] R11.2 Nausea with vomiting, unspecified NAUSEA WITH VO MITING, UNSPECIFIED Diagnosis 03/23/2019 12:24:00 PM [facility] Surgeries/Procedures Procedure Description Date Indications Data Source(s) RADEX ELBOW COMPLETE MINIMUM 3 VIEWS 12/02/2019 12:00: 00 AM EDT MEDENT ([facility]) PROTHROMBIN TIME 09/03/2019 12:00:00 AM EDT eCW1 ([facility]) AntiCoag Mgmt Pt for Warfarin 09/03/2019 12:00:00 AM E DT eCW1 ([facility]) Office Visit, Est Pt., Level 2 FC 06/18/2019 12:00:00 AM EST eCW1 ([facility]) Office Visit, Est Pt., Level 4 PC 06/18/2019 12:00:00 AM EST eCW1 ([facility]) VENIPUNCT, ROUTINE* 04/02/2019 12:00:00 AM EST eCW1 ([facility]) Results ID Date Data Source PT-INR Fingerstick 04/08/2020 12:00:00 AM EST eCW1 ([facility]) Name Value Range Interpretation Code Description Data Verito rce(s) Supporting Document(s) 2.5mg ROW Current Dose 2 eCW1 ([facility]) 2.3 INR eCW1 ([facility]) 5mg MWF Current Dose 1 eCW1 ([facility]) yes Verified Patient's Name and DO B eCW1 ([facility]) yes Internal QC Acceptable (Y/N) e CW1 ([facility]) no Recent Bleeding eCW1 (Count includes the [facility]) AFIB Indication for Anticoagulation eCW1 ([facility]) 5mg tabs Tab Strength eCW1 ([facility]) per no change in dose recheck 2 weeks New Dose 1 eCW1 ([facility]) Education Given (Date / Initia ls) eCW1 ([facility]) New Dose 2 eCW1 ([facility]) 2-3 Therapeutic Range eCW1 ([facility]) Weekly Total eCW1 ([facility]) 04/21/2020 Next PT-INR eCW1 ([facility]) - eCW1 ([facility]) ID Date Data Source PT-INR 05/28/2019 12:00:00 AM EST eCW1 ([facility]) Name Value Range Interpretation Code Description Data Verito rce(s) Supporting Document(s) Prothrombin time (PT) 34.6 11.8-14.0 PROTHROMBIN TI ME eCW1 ([facility]) INR in Platelet poor plasma by Coagulation assay 3.43 INR eCW1 ([facility]) ID Date Data Source [id number] 05/01/2019 10:13:21 AM EST [facility] Name Value Range Interpretation Code Description Data Verito rce(s) Supporting Document(s) &PDF [facility] [id number]/FAHmpMFFmd9OiDEomXRr8LEenRLIoZ8SgsMatUPbXWtnWGIIuDZYNSSMLBZ9z [facility] [file] ICAgICAgICAgICAgICAgICAgICAgICAgICAgICAgICAgICAgICAgICAgICAgICAgICAgICAgICAgICAg ICAgICAgICAgICAgICAgICAgICAgICAgDQogICAgICAgICAgICAgICAgICAgICAgICAgICAgICAgICAg ICAgICAgICAgICAgICAgICAgICAgICAgICAgICAgIC AgICAgICAgICAgICAgICAgICAgICAgICAgICAgICAgICAgDQogICAgICAgICAgICAgICAgICAgICAgIC AgICAgICAgICAgICAgICAgICAgICAgICAgICAgICAgICAgICAgICAgICAgICAgICAgICAgICAgICAgIC AgICAgICAgICAgICAgICAgDQogICAgICAgICAgICAg ICAgICAgICAgICAgICAgICAgICAgICAgICAgICAgICAgICAgICAgICAgICAgICAgICAgICAgICAgICAg ICAgICAgICAgICAgICAgICAgICAgICAgICAgDQogICAgICAgICAgICAgICAgICAgICAgICAgICAgICAg ICAgICAgICAgICAgICAgICAgICAgICAgICAgICAgIC AgICAgICAgICAgICAgICAgICAgICAgICAgICAgICAgICAgICAgDQogICAgICAgICAgICAgICAgICAgIC AgICAgICAgICAgICAgICAgICAgICAgICAgICAgICAgICAgICAgICAgICAgICAgICAgICAgICAgICAgIC AgICAgICAgICAgICAgICAgICAgDQogICAgICAgICAg ICAgICAgICAgICAgICAgICAgICAgICAgICAgICAgICAgICAgICAgICAgICAgICAgICAgICAgICAgICAg ICAgICAgICAgICAgICAgICAgICAgICAgICAgICAgDQogICAgICAgICAgICAgICAgICAgICAgICAgICAg ICAgICAgICAgICAgICAgICAgICAgICAgICAgICAgIC AgICAgICAgICAgICAgICAgICAgICAgICAgICAgICAgICAgICAgICAgDQogICAgICAgICAgICAgICAgIC AgICAgICAgICAgICAgICAgICAgICAgICAgICAgICAgICAgICAgICAgICAgICAgICAgICAgICAgICAgIC AgICAgICAgICAgICAgICAgICAgICAgDQogICAgICAg ICAgICAgICAgICAgICAgICAgICAgICAgICAgICAgICAgICAgICAgICAgICAgICAgICAgICAgICAgICAg ULZoJMVlEDZkUNCoECJeRJTvZMXoEASuOJNqAJSsVVJbFSa6X5kmDFMdMMTyCR6bTPa1Bi4+DQoNCmVu ISW0qxHvyV0CKI9qf4GrFKxcXYPpi1DnUWm7GA3YVT TuINhvRG9KROawwo6RDHDnAEDbdFTRw1euDvSsILP2TPLpUlxjXM0UQXXwA8yocwDiZRFxEBEEAWzjXB LIZW4SCtTiW6UbrZ15VJTVSt7+AYvfvkIrLxeHBgZrIAJxc3JzIMm7YK4HNPPrGZgdTC2MIPSsoF9wRI gySY5IWqEyKTGcPTYYRuCnO47uiOTqYYx9C2PqFkDu ZGVkRmlsZXMgPDwvTmFtZXMgWyBdDQogID4+ID4+BHotCG3JYLngalWjSXJaAd3KNQDbTTB0BPPpbKNb AjClVIDYLAorPW8VlMWrYFZ6wC3wWRaxOAIgKIYpK9hSNcMrpHgcYU92aVeyueDisLIpLPe+Zk3BRN9f u7FnYHv0hnEiQYapXNPcVJlySAXjLZAzLQNtLGV5LU U5IUXKMjVoNHDxPJDvVVxpRKBqAEQtcz4RVJYoWUIkGBY6KIKuBPBjBHLpTCumGSEfHHKhTLY0ORYxQC ApVP6KZdDcAMNpUUEaAEVlJLFgWGKnli6HJHXlQXFeHepbWBHdTRSlYOUhUFoyTTMkLCD1OIF4SKEkWE PpTE1UOeTqIGIvMCQvZrUhVAFrRXTaiz6ELDJfFPZy QlAiGXNqZBGiNVEqLVnmTYYfEFR4XLnjTOHaFEAuBP1BVtKtHHJrRKv2VEdiOYTcQQMsxk8OAODcTQQa Nvn0IAOqGTRdZDHtJEptCSZbKJI8LWA3VTAuRYWzKE9DMkUnGGAaPWurPfMbAYDaDGZddj8SGIXySLTn CHCrJCEiZAJbDSBuSAxxQJFaQCTlIGm1HTPqNOTzMB 9YLtFlKQMkTKRnWyvpXTEaOOGdbs1QNRVkEOMsRPI7LiVpODDxHHDcMFnyCQZkPEM6VmL4KAYfSQLbTO 3GHbUpOLCeHNibVaYiXPVjWYMwwy2ULLAuPPUeOGfwUOFvSDKiFGNrTInsNTDsAEYkIGF3UMZmLXQzEQ 4IUcNxEQsgCOFZKsb2PFsdO4s3TBXkWs7XJ3Pip4Ma XyBgNTPEHWqxIX3immFdXPQhDd2YU5aAShaqI3TxWgPgYfUlHnN9AuK2HtYfPlQtGUy4E8A9NoL8OF9l VUNtRdD4HlRuGBPfLTobWsczBxLuLrEkKPBfVsuqBIOfPdZlEI8BMc3ELgR6NHJ9rEJmNl5TZvRlSzQT BpIjID9NMPu= ID Date Data Source [id number] 03/26/2019 03:46:00 PM [facility] Patient: ANA MAYO Observation R eport - [facility].VisitID: [id number] [place] [address] [phone], MRegistration Date/Time: 03/23/2019 10:29 Weight:88.1 kg. Height/Length:68 inches (S). BMI:29.5 Obs Start: 03/23/2019 12:24 Obs Dispo: 03/24/2019 13:09 Obs Duration: 24 hr 45 min Time Seen: (12:24), initial patient contact, received patient report. Historian- patient and EMS personnel. ED Visit Summary:ED visit reviewed and verbally communicated. Chief complaint of: syncope and DIZZINESS. Initial diagnostic impression: 2 syncopal episodes. Summary of history: History of fall out of bed yesterday and syncopal episode today, fell on stairs and injured his left chest wall. Patient felt dizzy but does not recall loosing consciousness today.There was no other injury then chest wall. Patient is on warfarin for atrial fibrillation. He denies any headache, denies any pain in his neck or back. He is moving all extremities and he denies any extremity or skeletal pain. Summary of exam: Irregular heart rate, Systolic murmur,. automotive parts interpreter applied. ED course / condition: improved with treatment. Observation started: 12:24 03/23/2019. HISTORY OF PRESENT ILLNESSChief Complaint: DIZZINESS Status post fall x2, Syncopal and near syncopal episode. This started last night and is still present. At its maximum, severity described as moderate. When seen in the E.D., severity described as moderate. Modifying factors. Not worsened by anything. Not relieved by anything. No loss of appetite, weight loss, headache, visual disturbance or fatigue. No muscle aches. Denies sleep problem. No decreased urine output. Similar symptoms previously. None. Recent medical care: Not recently seen/assessed. REVIEW OF SYSTEMSNo anorexia, chills, fever, muscle aches or sweats. No weight loss, decreased vision, double vision, eye irritation or photophobia. No ear drainage or pain, hearing loss, tinnitus or nasal congestion. No epistaxis, runny nose, sinus pain, mouth sores or sore throat. No toothache, calf pain, chest pain, cough or difficulty breathing. No pedal edema, palpitations, abdominal pain, black stools or bloody stools. No constipation, diarrhea, nausea, vomiting or urinary frequency. No hematuria, back pain, joint pain, neck pain or skin lesions. No alteration in mental status, depression, headache, head injury or numbness. No seizure, suicidal thoughts, difficulty with urination, swelling or extremity swelling. No anxiety. The patient has had fatigue and dizziness but no pain on weight bearing and experienced syncope. Denies sleep disorder. No difficulty walking. All other systems reviewed and are negative. PAST HISTORYSee nurses notes. Problems:Coronary Artery Disease.Myocardial Infarction.Hypertension.Lung Disease.Congestive Heart Failure.Heart Disease.Arthritis. Additional Surgeries:Coronary Stents PLaced.Hip Surgery [10/2018].Tonsillectomy. Medications:Warfarin Sodium Oral (Tablet 5 mg) 1/2 tablet, daily, last dose unknown (as directed).diphenhydrAMINE HCl Oral 25 mg, as needed, last dose unknown.Docusate Sodium Oral (Capsule 100 mg), as needed, last dose unkno wn.Vitamin D3 Complete Oral, daily, last dose 03/22/19.Nitroglycerin Sublingual 0.4 mg, as needed, last dose unknown.Chlorthalidone Oral (Tablet 25 mg) 1 tablet, daily, last dose 03/22/19.Atorvastatin Calcium Oral (Tablet 40 mg) 1 tablet, daily, last dose 03/22/19.PARoxetine HCl Oral (Tablet 20 mg) 1 tablet, 2x a day, last dose 03/22/19.Anoro Ellipta Inhalation (Aerosol Powder Breath Activated 62.5-25 mcg/inh) 1 puff, daily, last dose 03/22/19.ProAir HFA Inhalation (Aerosol Solution 108 (90 Base) mcg/act) 1 puff, 4x a day as needed, last dose unknown.amLODIPine Besylate Oral (Tablet 10 mg) 1/2 tablet, daily, last dose 03/22/19.Metoprolol Tartrate Oral (Tablet 25 mg) 1 tablet, 2x a day, last dose 03/22/19. Allergies:Moxifloxacin. SOCIAL HISTORYFormer smoker, end date 2003. No alcohol use or drug use. No recent travel. Is a local resident. He lives alone. FAMILY HISTORY(Mother had ovarian cancerSon on cancer). ADDITIONAL NOTESThe nursing notes have been reviewed with agreement regarding the chief complaint, HPI, PMH and patient medications and allergies. PHYSICAL EXAMVital Signs: 03/23/2019 12:30 BP: 128/70. MAP: 89. HR: 68. RR: 14. O2 saturation: 97% on room air. Pain level now: 0.03/23/2019 12:00 BP: 127/72. MAP: 90. HR: 68. RR: 14. O2 saturation: 97% on room air. Pain level now: 0.03/23/2019 11:00 BP: lying 132/63. MAP: 86. HR: 61. RR: 15. O2 saturation: 96% on nasal cannula at 2 liters/minute. Pain level now: 0.03/23/2019 10:50 BP: standing 153/108. MAP: 123. HR: 80. RR: 17. O2 saturation: 97% on nasal cannula at 2 liters/minute. Temp: 97.7 F. Pain level now: 0/10.03/23/2019 10:45 BP: sitting 148/70. MAP: 96. Have been reviewed. Appearance: Alert. No acute distress. Eyes: Pupils equal, round and reactive to light. Eyes normal inspection. ENT: Ears normal. Nose normal. Pharynx normal. Neck: Normal inspection. CVS: Abnormal rhythm, which is irregularly irregular (Chronic atrial fibrillation). Pulses normal. Respiratory: No resp iratory distress. Decreased air movement. Chest nontender. Abdomen: No visible injury. Soft and nontender. Bowel sounds normal. No organomegaly. No mass. Femoral pulses equal. Back: Normal inspection. Skin: Skin warm and dry. Normal skin color. No rash. Normal skin turgor. Extremities: Extremities exhibit normal ROM. No lower extremity edema. Neuro: Oriented X 3. No motor deficit. No sensory deficit. Reflexes normal. LABS, X-RAYS, AND EKGLaboratory Tests: CBC w Diff: (YAHAIRA: 03/24/2019 06:40)( MsgRcvd 03/24/2019 06:55) New Order TSYSORDER [id number] Test Result Flag Units (Reference)WHITE BLOOD COUNT 8.5 K/mm3 (4.0-10.0) RED BLOOD COUNT 4.88 M/mm3 (4.50- 6.00) HEMOGLOBIN 13.1 L gm/dL (14.0-18.0) HEMATOCRIT 40.6 L % (42.0-54.0) MEAN CELL VOLUME 83.2 fl (80-96) MEAN CORPUSCULAR HEMOGLOBIN 26.8 L pg (27.0-31.0) MEAN CORPUSCULAR HGB CONC 32.3 g/dl (32.0-36.0) RED CELL DISTRIBUTION WIDTH 14.9 H % (10.0-14.5) PLATELET COUNT 185 K/mm3 (172-450) MEAN PLATELET VOLUME 11.8 fl (9.0-13.0) GRAN % 70.2 % (50-80.0) IG% 0.1 % (0.0-0.2) LYMPH % 16.9 L % (25.0-50.0) MONO % 9.9 % (2.0-10.0) EOS % 2.5 % (0-5.0) BASO % 0.4 % (0.0-2.0) GRAN # 6.0 K/mm3 (2.0-8.00) IG# 0.0 K/mm3 (0.0-0.2) LYMPH # 1.4 K/mm3 (1.0-5.0) MONO # 0.8 K/mm3 (0.10-1.20) EOS # 0.2 K/mm3 (0.0-0.5) BASO # 0.0 K/mm3 (0.0-0.2) PT with INR: (YAHAIRA: 03/24/2019 06:40)( [facility] 03/24/2019 07:11) New Order TSYSORDER [id number] Test Result Flag Units (Reference)PROTHROMBIN TIME (PATIENT) 25.3 H SECONDS (9.2-11.6) INR 2.50 H (0.87-1.06) CMP: (YAHAIRA: 03/24/2019 06:40)( [facility] 03/24/2019 07:22[facility] New Order TSYSORDER [id number] Test Result Flag Units (Reference)GLUCOSE 106 mg/dL (74-106) BLOOD UREA NITROGEN 14 mg/dL (7-18) CREATININE 0.9 mg/dL (0.7-1.3) SODIUM 139 mmol/L (136-145) POTASSIUM 3.5 mmol/L (3.5-5.1) CHLORIDE 101 mmol/L (98-107) CO2 34 H mmol/L (21-32) CALCIUM 8.5 mg/dL (8.5-10.1) ANION GAP 4.0 L mmol/L (5-12) GLOMERULAR FILTRATION RATE 83 mL/min GFR IS CALCULATED IN mL/min/1.64t8GFOURV FUNCTION: >90MILDLY DECREASED: 60-89MILDY TO MODERATELY DECREASED: 45-59 MODERATELY TO SEVERELY DECREASED: 30-44SEVERELY DECREASED: 15- 29RENAL FAILURE: <15 AST 20 U/L (15-37) ALT 22 U/L (12-78) ALKALINE PHOSPHATASE 78 U/L (46-116) TOTAL BILIRUBIN 0.9 mg/dL (0.2-1.0) TOTAL PROTEIN 6.0 L g/dl (6.4-8.2) ALBUMIN 2.9 L gm/dL (3.4-5.0) Troponin-I: (YAHAIRA: 03/23/2019 23:15)( MsgRcvd 03/23/2019 23:52) New Order TSYSORDER [id number] Test Result Flag Units (Reference)TROPONIN I < 0.017 ng/mL (0.0-0.056) Troponin-I: (YAHAIRA: 03/23/2019 17:25)( MsgRcvd 03/23/2019 17:55) New Order TSYSORDER [id number] Test Result Flag Units (Reference)TROPONIN I < 0.017 ng/mL (0.0-0.056) CT Head wo IV Cont: (YAHAIRA: 03/23/2019 11:16)( [facility] 03/23/2019 12:01) Exam BRAIN W/O CONTRAST DATE OF EXAMINATION: 03/23/2019 11:17 EST BRAIN W/O CONTRAST INDICATION: Trauma, pain COMPARISON: None. This CT exam was performed using the following dose reduction techniques: Automated exposure control, adjustment of mA and/or kV according to the patient's size, and use of iterative reconstruction technique. TECHNIQUE: Axial images were obtained from the gonzalez magnum to the vertex. FINDINGS: The basal cisterns cortical sulci and ventricles are prominent consistent with atrophic change. There is decreased attenuation of the periventricular white matter, consistent with small vessel ischemic disease. There is no mass effect or midline shift. No intracranial bleeds. No intra or extra-axial collections. The calvarium and extracranial soft tissues are unremarkable. The visualized paranasal sinuses are well aerated. IMPRESSION: Atrophic changes with periventricular leukomalacia. No acute intracranial abnormalities. CT CHEST WITHOUT CONTRAST DATE OF EXAMINATION: 03/23/2019 11:17 EST BRAIN W/O CONTRAST CLINICAL STATEMENT: Trauma, pain TECHNIQUE: CT of the chest was performed without intravenous contrast. Sagittal and coronal reformats were obtained. One or more of the following dose reduction techniques were utilized in effectively lowering the radiation dose for this examination: Automated Exposure Control, Adjustment of the mA and/or kV according to patient size, or Iterative reconstruction. COMPARISON: None FINDINGS: There is centrilobular emphysematous change. No rib fractures. There is a scoliotic curve of the thoracic spine convex right. No pleural or pericardial effusion. There is atherosclerotic change of the aorta as well as coronary artery calcifications. There is scarring and atelectasis at the lung bases. IMPRESSION: No acute injury Electronically signed in PS360 by: Jeremy Glover M.D. 03/23/2019 11:54 EST Dictated by: JEREMY GLOVER CT Chest wo IV Cont: (YAHAIRA: 03/23/2019 11:16)( MsgRcvd 03/24/2019 09:19) Exam CHEST W/O IV CONTRAST DATE OF EXAMINATION: 03/23/2019 11:17 EST CHEST W/O IV CONTRAST CLINICAL STATEMENT: Trauma, pain TECHNIQUE: CT of the chest was performed without intravenous contrast. Sagittal and coronal reformats were obtained. One or more of the following dose reduction techniques were utilized in effectively lowering the radiation dose for this examination: Automated Exposure Control, Adjustment of the mA and/or kV according to patient size, or Iterative reconstruction. COMPARISON: None FINDINGS: There is centrilobular emphysematous change. No rib fractures. There is a scoliotic curve of the thoracic spine convex right. No pleural or pericardial effusion. There is atherosclerotic change of the aorta as well as coronary artery calcifications. There is scarring and atelectasis at the lung bases. IMPRESSION: No acute injury Electronically signed in PS360 by: Jeremy Glover M.D. 03/24/2019 9:13 EST Dictated by: JEREMY GLOVER CBC w Diff: (YAHAIRA: 03/23/2019 10:40)( MsgRcvd 03/23/2019 10:53) New Order TSYSORDER [id number] Test Result Flag Units (Reference)WHITE BLOOD COUNT 7.9 K/mm3 (4.0-10.0) RED BLOOD COUNT 5.43 M/mm3 (4.50-6.00) HEMOGLOBIN 14.5 gm/dL (14.0-18.0) HEMATOCRIT 44.9 % (42.0-54.0) MEAN CELL VOLUME 82.7 fl (80-96) MEAN CORPUSCULAR HEMOGLOBIN 26.7 L pg (27.0-31.0) MEAN CORPUSCULAR HGB CONC 32.3 g/dl (32.0-36.0) RED CELL DISTRIBUTION WIDTH 14.5 % (10.0-14.5) PLATELET COUNT 198 K/mm3 (172-450) MEAN PLATELET VOLUME 11.8 fl (9.0-13.0) GRAN % 69.2 % (50-80.0) IG% 0.1 % (0.0-0.2) LYMPH % 16.8 L % (25.0-50.0) MONO % 9.0 % (2.0-10.0) EOS % 4.4 % (0-5.0) BASO % 0.5 % (0.0-2.0) GRAN # 5.5 K/mm3 (2.0-8.00) IG# 0.0 K/mm3 (0.0-0.2) LYMPH # 1.3 K/mm3 (1.0-5.0) MONO # 0.7 K/mm3 (0.10-1.20) EOS # 0.4 K/mm3 (0.0-0.5) BASO # 0.0 K/mm3 (0.0-0.2) PT with INR: (YAHAIRA: 03/23/2019 10:40)( MsgRcvd 03/23/2019 11:13) New Order Test Result Flag Units (Reference)PROTHROMBIN TIME (PATIENT) 27.7 H SECONDS (9.2-11.6) INR 2.74 H (0.87-1.06) PARTIAL THROMBOPLASTIN TIME 33.3 H SECONDS (21.4-30.2) DDIMER 0.58 mg/LFEU (0.19-0.80) CMP: (YAHAIRA: 03/23/2019 10:40)( MsgRcvd 03/23/2019 11:14) New Order TSYSORDER [id number] Test Result Flag Units (Reference)GLUCOSE 173 H mg/dL (74-106) BLOOD UREA NITROGEN 25 H mg/dL (7-18) CREATININE 1.1 mg/dL (0.7-1.3) SODIUM 139 mmol/L (136-145) POTASSIUM 3.3 L mmol/L (3.5-5.1) CHLORIDE 99 mmol/L (98-107) CO2 33 H mmol/L (21-32) CALCIUM 9.2 mg/dL (8.5-10.1) ANION GAP 7.0 mmol/L (5-12) GLOMERULAR FILTRATION RATE 66 mL/min GFR IS CALCULATED IN mL/min/1.98v2IPFIEV FUNCTION: >90MILDLY DECREASED: 60-89MILDY TO MODERATELY DECREASED: 45-59 MODERATELY TO SEVERELY DECREASED: 30-44SEVERELY DECREASED: 15-29RENAL FAILURE: <15 AST 21 U/L (15-37) ALT 25 U/L (12-78) ALKALINE PHOSPHATASE 86 U/L (46-116) TOTAL BILIRUBIN 1.0 mg/dL (0.2-1.0) TOTAL PROTEIN 7.3 g/dl (6.4-8.2) ALBUMIN 3.6 gm/dL (3.4-5.0) TROPONIN I < 0.017 ng/mL (0.0-0.056) MAGNESIUM 1.9 mg/dL (1.8-2.4) . PROGRESS AND PROCEDURESCourse of Care: 03/23/2019 74 year old male with hc of coronary artery disease, history of NH in 2010, hx of coronary stents placed in 2010, Atrial fibrillation, on warfarin, with hx of COPD, presence of systolic murmur and hx of two dangerous fall within the last 24 hr. Mr Mayo lives alone. 03/23/2019 23:04 BP: lying 155/90. MAP: 111. HR: 68. RR: 18. O2 saturation: 96% on nasal cannula at 2 liters/minute. Temp: 98.1 F.03/23/2019 19:02 BP: lying 109/68. MAP: 81. HR: 90. RR: 18. O2 saturation: 95% on room air. Temp: 97 F. Pain level now: 0/10.03/23/2019 15:37 BP: 139/85. MAP: 103. HR: 77. RR: 18. O2 saturation: 97%. Temp: 97.2 F. Pain level now: 0/10.03/23/2019 13:16 BP: 159/83. MAP: 108. HR: 65. RR: 18. O2 saturation: 97%. Temp: 97.6 F.03/23/2019 12:30 BP: 128/70. MAP: 89. HR: 68. RR: 14. O2 saturation: 97% on room air. Pain level now: 0/10.03/23/2019 12:00 BP: 127/72. MAP: 90. HR: 68. RR: 14. O2 saturation: 97% on room air. Pain level now: 0/10. Vital Signs: have been reviewed. Evaluation after observation. Patient is not having pain. No chest pain, nausea, vomiting, palpitations or anxiety. No dizziness or seizure. He is having difficulty breathing. Physical exam findings are improved. Oriented X3. No acute distress. Breath sounds normal. No respiratory distress. Abnormal cardiac rhythm (Chronic atrial fibrillation). Heart sounds normal. Abdomen soft and nontender. Skin warm and dry. Oriented X 3. Evaluation after multiple exams. 03/24/2019 referred for Echocardiogram as outpatient. Mr Mayo may need some additional help at home as he is living by himself. 03/24/2019 Prescription for a walker was generated. Per PT patient should ambulate with a walker for safety. Disposition: Discharged home in stable condition. Condition: stable. CLINICAL IMPRESSIONSyncopal episodeCoronary artery diseaseR/O MIHx of Myocardial InfarctionHx of Coronary Stent Placement StatusAmbulatory dysfunctionUnsteady GaitOsteoarthritis. INSTRUCTIONSNo strenuous activity. Follow a low cholesterol diet. (We did refer you for Echocardiogram- evaluation of your heart by ultrasound. Please use a walker for safety. Fall while on blood thinners could cause a life threatening bleed. Please do use your walker.). Warnings: Further evaluation is necessary. GENERAL WARNINGS: Return or contact your physician immediately if your condition worsens or changes unexpectedly, if not improving as expected, or if other problems arise. Specifically return if pain, vomiting, bleeding, breathing difficulty or fever. any worrisome concerns or symptoms. Your Current Medications: Your current home medications have been reviewed. CONTINUE TAKING THE FOLLOWING MEDICATIONS:amLODIPine Besylate Oral : Tablet 10 mg, 1/2 tablet daily, Last: 03/22/19. Anoro Ellipta Inhalation : Aerosol Powder Breath Activated 62.5-25 mcg/inh, 1 puff daily, Last: 03/22/19. Atorvastatin Calcium Oral : Tablet 40 mg, 1 tablet daily, Last: 03/22/19. Chlorthalidone Oral : Tablet 25 mg, 1 tablet daily, Last: 03/22/19. diphenhydrAMINE HCl Oral : 25 mg, Last: unknown, prn. Docusate Sodium Oral : Capsule 100 mg, Last: unknown, prn. Metoprolol Tartrate Oral : Tablet 25 mg, 1 tablet 2x a day, Last: 03/22/19. Nitroglycerin Sublingual : 0.4 mg, Last: unknown, prn. PARoxetine HCl Oral : Tablet 20 mg, 1 tablet 2x a day, Last: 03/22/19. ProAir HFA Inhalation : Aerosol Solution 108 (90 Base) mcg/act, 1 puff 4x a day, Last: unknown, prn. Vitamin D3 Complete Oral : daily, Last: 03/22/19. Warfarin Sodium Oral : Tablet 5 mg, 1/2 tablet daily, Last: unknown, as directed. Follow-up:Follow up with your doctor Dr Duarte April 02/2019 at 10 am. even if well. Reason for referral: treatment. Summary of care provided to follow-up provider. U nderstanding of the discharge instructions verbalized. (Electronically signed by Rina Epstein MD 03/26/2019 15:32) Name Value Range Interpretation Code Description Data Verito rce(s) Supporting Document(s) ID Date Data Source [id number] 03/24/2019 10:09:00 AM EST [facility] In-Patient NoteNote:REFERRAL FOR ECHOCA RDIOGRAM Dx: FAINTING EPISODES, SYSTOLIC MURMUR, ATRIAL FIBRILLATION, HX OF NH 2010 Name Value Range Interpretation Code Description Data Verito rce(s) Supporting Document(s) ID Date Data Source [id number] 03/24/2019 09:59:00 AM EST [facility] In-Patient NoteNote: REFERRAL FOR ECHO CARDIOGRAM [facility] Dx: Atrial Fibrillation, Syncopal Episodes, Systolic Murmur, Hx of NH 2011, CAD PCP- Dr Duarte Name Value Range Interpretation Code Description Data [facility] Supporting Document(s) ID Date Data Source [id number] 03/24/2019 09:19:00 AM EST [facility] DATE OF EXAMINATION: 03/23/2019 11:17 ES T CHEST W/O IV CONTRAST CLINICAL STATEMENT: Trauma, pain TECHNIQUE: CT of the chest was performed without intravenous contrast. [place] coronal reformats were obtained. One or more of the following dose reduction techniques were utilized ineffectively lowering the radiation dose for this examination: Automated ExposureControl, Adjustment of the mA and/or kV according to patient size, or Iterativereconstruction. COMPARISON: None FINDINGS: There is centrilobular emphysematous change. No rib fractures. There is ascoliotic curve of the thoracic spine convex right. No pleural or pericardialeffusion. There is atherosclerotic change of the aorta as well as coronaryartery calcifications. There is scarring and atelectasis at the lung bases. IMPRESSION: No acute injury Electronically signed in PS360 by: Jeremy Glover M.D. 03/24/2019 9:13 EST Name Value Range Interpretation Code Description Data [facility]s) Supporting Document(s) ID Date Data Source [id number] 03/24/2019 07:21:00 AM EST [facility] TSYSORDER [id number] Name Value Range Interpretation Code Description Data [facility](s) Supporting Document(s) GLUCOSE 106 mg/dL 74-106 [facility] BLOOD UREA NITROGEN 14 mg/dL 7-18 [facility] ital CREATININE 0.9 mg/dL 0.7-1.3 [facility] SODIUM 139 mmol/L 136-145 [facility] POTASSIUM 3.5 mmol/L 3.5-5.1 [facility] CHLORIDE 101 mmol/L 98-107 [facility] CO2 34 mmol/L 21-32 H [facility] CALCIUM 8.5 mg/dL 8.5-10.1 [facility] ANION GAP 4.0 mmol/L 5-12 L [facility] GLOMERULAR FILTRATION RATE 83 mL/min [facility] GFR IS CALCULATED IN mL/min/1.73m2 JAYJAY L FUNCTION: >90MILDLY DECREASED: 60-89MILDY TO MODERATELY DECREASED: 45-59 MODERATELY TO SEVERELY DECREASED: 30-44SEVERELY DECREASED: 15-29RENAL FAILURE: <15 AST 20 U/L 15-37 [facility] ALT 22 U/L 12-78 [facility] ALKALINE PHOSPHATASE 78 U/L 46-116 [facility] TOTAL BILIRUBIN 0.9 mg/dL 0.2-1.0 [facility] TOTAL PROTEIN 6.0 g/dl 6.4-8.2 L [facility] ALBUMIN 2.9 gm/dL 3.4-5.0 L [facility] ID Date Data Source [id number] 03/24/2019 07:10:00 AM [facility] TSYSORDER [id number] Name Value Range Interpretation Code Description Data Verito rce(s) Supporting Document(s) PROTHROMBIN TIME (PATIENT) 25.3 SECONDS 9.2-11.6 H [facility] INR 2.50 0.87-1.06 H [facility] ID Date Data Source [id number] 03/24/2019 06:55:00 AM [facility] TSYSORDER [id number] Name Value Range Interpretation Code Description Data Verito rce(s) Supporting Document(s) WHITE BLOOD COUNT 8.5 K/mm3 4.0-10.0 [facility] al RED BLOOD COUNT 4.88 M/mm3 4.50-6.00 [facility] HEMOGLOBIN 13.1 gm/dL 14.0-18.0 L [facility] HEMATOCRIT 40.6 % 42.0-54.0 [facility] MEAN CELL VOLUME 83.2 fl 80-96 [facility] MEAN CORPUSCULAR HEMOGLOBIN 26.8 pg 27.0-31.0 L [facility] MEAN CORPUSCULAR HGB CONC 32.3 g/dl 32.0-36.0 [facility] RED CELL DISTRIBUTION WIDTH 14.9 % 10.0-14.5 H [facility] PLATELET COUNT 185 K/mm3 172-450 [facility] MEAN PLATELET VOLUME 11.8 fl 9.0-13.0 [facility] pital GRAN % 70.2 % 50-80.0 [facility] IG% 0.1 % 0.0-0.2 [facility] LYMPH % 16.9 % 25.0-50.0 L [facility] MONO % 9.9 % 2.0-10.0 [facility] EOS % 2.5 % 0-5.0 [facility] BASO % 0.4 % 0.0-2.0 [facility] GRAN # 6.0 K/mm3 2.0-8.00 [facility] IG# 0.0 K/mm3 0.0-0.2 [facility] LYMPH # 1.4 K/mm3 1.0-5.0 [facility] MONO # 0.8 K/mm3 0.10-1.20 [facility] EOS # 0.2 K/mm3 0.0-0.5 [facility] BASO # 0.0 K/mm3 0.0-0.2 [facility] ID Date Data Source [id number] 03/23/2019 11:51:00 PM [facility] l TSYSORDER [id number] Name Value Range Interpretation Code Description Data Verito rce(s) Supporting Document(s) TROPONIN I < 0.017 ng/mL 0.0-0.056 [facility] ID Date Data Source [id number] 03/26/2019 01:55:00 PM [facility] Name Value Range Interpretation Code Description Data Verito rce(s) Supporting Document(s) [facility] ID Date Data Source [id number] 03/24/2019 11:54:00 AM [facility] l TSYSORDER [id number] Name Value Range Interpretation Code Description Data Verito rce(s) Supporting Document(s) URINE RBC 0-2 /hpf 0-3 [facility] URINE WBC 0-2 /hpf 0-5 [facility] URINE EPITHELIAL CELLS NONE SEEN /hpf 0 [facility] URINE MUCUS 1+ NEGATIVE H [facility] ID Date Data Source [id number] 03/24/2019 11:43:00 AM [facility] ital TSYSORDER [id number] Name Value Range Interpretation Code Description Data Verito rce(s) Supporting Document(s) URINE COLOR. [facility] URINE APPEARANCE CLEAR [facility] l SPECIFIC GRAVITY,URINE 1.020 1.001-1.035 [facility] URINE LEUKOCYTE ESTERASE NEGATIVE NEGATIVE [facility] URINE NITRATE NEGATIVE NEGATIVE [facility] PH,URINE 7.0 5.0-9.0 [facility] URINE PROTEIN 1+(30) mg/dL NEGATIVE H [facility] l URINE GLUCOSE (UA) NEGATIVE mg/dL NEGATIVE [facility] URINE KETONE NEGATIVE mg/dL NEGATIVE [facility] UROBILINOGEN NORMAL(0.2-1) mg/dL 0-1 [facility] URINE BILIRUBIN NEGATIVE NEGATIVE [facility] URINE BLOOD NEGATIVE NEGATIVE [facility] ID Date Data Source [id number] 03/23/2019 05:54:00 PM EST [facility] TSYS[facility] [id number] Name Value Range Interpretation Code Description Data Verito rce(s) Supporting Document(s) TROPONIN I < 0.017 ng/mL 0.0-0.056 [facility] ID Date Data Source [id number] 03/23/2019 12:00:00 PM EST [facility] l DATE OF EXAMINATION: 03/23/2019 11:17 ES T BRAIN W/O CONTRAST INDICATION: Trauma, pain COMPARISON: None. This CT exam was performed using the following dose reduction techniques:Automated exposure control, adjustment of mA and/or kV according to thepatient's size, and use of iterative reconstruction technique. TECHNIQUE: Axial images were obtained from the gonzalez magnum to the vertex. FINDINGS: The basal cisterns cortical sulci and ventricles are prominentconsistent with atrophic change. There is decreased attenuation of theperiventricular white matter, consistent with small vessel ischemic disease. There is no mass effect or midline shift. No intracranial bleeds. No intra orextra-axial collections. The calvarium and extracranial soft tissues areunremarkable. The visualized paranasal sinuses are well aerated. IMPRESSION: Atrophic changes with periventricular leukomalacia. No acute intracranialabnormalities. CT CHEST WITHOUT CONTRAST DATE OF EXAMINATION: 03/23/2019 11:17 EST BRAIN W/O CONTRAST CLINICAL STATEMENT: Trauma, pain TECHNIQUE: CT of the chest was performed without intravenous contrast. [place] coronal reformats were obtained. One or more of the following dose reduction techniques were utilized ineffectively lowering the radiation dose for this examination: Automated ExposureControl, Adjustment of the mA and/or kV according to patient size, or Iterativereconstruction. COMPARISON: None FINDINGS: There is centrilobular emphysematous change. No rib fractures. There is ascoliotic curve of the thoracic spine convex right. No pleural or pericardialeffusion. There is atherosclerotic change of the aorta as well as coronaryartery calcifications. There is scarring and atelectasis at the lung bases. IMPRESSION: No acute injury Electronically signed in PS360 by: Jeremy Glover M.D. 03/23/2019 11:54 EST Name Value Range Interpretation Code Description Data Verito rce(s) Supporting Document(s) ID Date Data Source [id number] 03/23/2019 11:13:00 AM EST [facility] TSYSORDER [id number] Name Value Range Interpretation Code Description Data Verito rce(s) Supporting Document(s) MAGNESIUM 1.9 mg/dL 1.8-2.4 [facility] ID Date Data Source [id number] 03/23/2019 11:13:00 AM EST [facility] TSYSORDER [id number] R [id number] Name Value Range Interpretation Code Description Data Verito rce(s) Supporting Document(s) TROPONIN I < 0.017 ng/mL 0.0-0.056 [facility] ID Date Data Source [id number] 03/23/2019 11:13:00 AM EST [facility] TSYSORDER [id number] Name Value Range Interpretation Code Description Data Verito rce(s) Supporting Document(s) GLUCOSE 173 mg/dL 74-106 H [facility] BLOOD UREA NITROGEN 25 mg/dL 7-18 H [facility] ital CREATININE 1.1 mg/dL 0.7-1.3 [facility] SODIUM 139 mmol/L 136-145 [facility] POTASSIUM 3.3 mmol/L 3.5-5.1 L [facility] CHLORIDE 99 mmol/L 98-107 [facility] CO2 33 mmol/L 21-32 H [facility] CALCIUM 9.2 mg/dL 8.5-10.1 [facility] ANION GAP 7.0 mmol/L 5-12 [facility] GLOMERULAR FILTRATION RATE 66 mL/min [facility] GFR IS CALCULATED IN mL/min/1.73m2 JAYJAY L FUNCTION: >90MILDLY DECREASED: 60-89MILDY TO MODERATELY DECREASED: 45-59 MODERATELY TO SEVERELY DECREASED: 30-44SEVERELY DECREASED: 15-29RENAL FAILURE: <15 AST 21 U/L 15-37 [facility] ALT 25 U/L 12-78 [facility] ALKALINE PHOSPHATASE 86 U/L 46-116 [facility] pital TOTAL BILIRUBIN 1.0 mg/dL 0.2-1.0 [facility] TOTAL PROTEIN 7.3 g/dl 6.4-8.2 [facility] ALBUMIN 3.6 gm/dL 3.4-5.0 [facility] ID Date Data Source [id number] 03/23/2019 11:12:00 AM [facility] Name Value Range Interpretation Code Description Data Verito rce(s) Supporting Document(s) DDIMER 0.58 mg/LFEU 0.19-0.80 [facility] ID Date Data Source [id number] 03/23/2019 11:12:00 AM [facility] Name Value Range Interpretation Code Description Data Verito rce(s) Supporting Document(s) PARTIAL THROMBOPLASTIN TIME 33.3 SECONDS 21.4-30.2 H [facility] ID Date Data Source [id number] 03/23/2019 11:12:00 AM [facility] Name Value Range Interpretation Code Description Data Verito rce(s) Supporting Document(s) PROTHROMBIN TIME (PATIENT) 27.7 SECONDS 9.2-11.6 H [facility] INR 2.74 0.87-1.06 H [facility] ID Date Data Source [id number] 03/23/2019 10:52:00 AM [facility] TSYSORDER [id number] Name Value Range Interpretation Code Description Data Verito rce(s) Supporting Document(s) WHITE BLOOD COUNT 7.9 K/mm3 4.0-10.0 [facility] al RED BLOOD COUNT 5.43 M/mm3 4.50-6.00 [facility] HEMOGLOBIN 14.5 gm/dL 14.0-18.0 [facility] HEMATOCRIT 44.9 % 42.0-54.0 [facility] MEAN CELL VOLUME 82.7 fl 80-96 [facility] MEAN CORPUSCULAR HEMOGLOBIN 26.7 pg 27.0-31.0 L [facility] MEAN CORPUSCULAR HGB CONC 32.3 g/dl 32.0-36.0 [facility] RED CELL DISTRIBUTION WIDTH 14.5 % 10.0-14.5 [facility] PLATELET COUNT 198 K/mm3 172-450 [facility] MEAN PLATELET VOLUME 11.8 fl 9.0-13.0 [facility] pital GRAN % 69.2 % 50-80.0 [facility] IG% 0.1 % 0.0-0.2 [facility] LYMPH % 16.8 % 25.0-50.0 L [facility] MONO % 9.0 % 2.0-10.0 [facility] EOS % 4.4 % 0-5.0 [facility] BASO % 0.5 % 0.0-2.0 [facility] GRAN # 5.5 K/mm3 2.0-8.00 [facility] IG# 0.0 K/mm3 0.0-0.2 [facility] LYMPH # 1.3 K/mm3 1.0-5.0 [facility] MONO # 0.7 K/mm3 0.10-1.20 [facility] EOS # 0.4 K/mm3 0.0-0.5 [facility] BASO # 0.0 K/mm3 0.0-0.2 [facility] Procedure Social History Code Duration Value Status Description Data Source(s ) Smoking 11/19/2019 12:00:00 AM EDT Former Smoker completed Former Smoker eCW1 ([facility]) Smoking 11/19/2019 12:00:00 AM EDT Former Smoker completed Former Smoker eCW1 ([facility]) Smoking 11/19/2019 12:00:00 AM EDT Former Smoker completed Former Smoker eCW1 ([facility]) Smoking 11/19/2019 12:00:00 AM EDT Former Smoker completed Former Smoker eCW1 ([facility]) Smoking 11/19/2019 12:00:00 AM EDT Former Smoker completed Former Smoker eCW1 ([facility]) Smoking 11/19/2019 12:00:00 AM EDT Former Smoker completed Former Smoker eCW1 ([facility]) Smoking 11/19/2019 12:00:00 AM EDT Former Smoker completed Former Smoker eCW1 ([facility]) Smoking 11/19/2019 12:00:00 AM EDT Former Smoker completed Former Smoker eCW1 ([facility]) Smoking 11/19/2019 12:00:00 AM EDT Former Smoker completed Former Smoker eCW1 ([facility]) Smoking 11/19/2019 12:00:00 AM EDT Former Smoker completed Former Smoker eCW1 ([facility]) Smoking 11/19/2019 12:00:00 AM EDT Former Smoker completed Former Smoker eCW1 ([facility]) Smoking 11/19/2019 12:00:00 AM EDT Former Smoker completed Former Smoker eCW1 ([facility]) Smoking 11/19/2019 12:00:00 AM EDT Former Smoker completed Former Smoker eCW1 ([facility]) Smoking 11/19/2019 12:00:00 AM EDT Former Smoker completed Former Smoker eCW1 ([facility]) Smoking 11/19/2019 12:00:00 AM EDT Former Smoker completed Former Smoker eCW1 ([facility]) Smoking 11/19/2019 12:00:00 AM EDT Former Smoker completed Former Smoker eCW1 ([facility]) Smoking 10/24/2019 12:00:00 AM EDT Former Smoker completed Former Smoker eCW1 ([facility]) Smoking 09/17/2019 12:00:00 AM EDT Former Smoker completed Former Smoker eCW1 ([facility]) Vital Signs ID Date Data Source [id number] Name Value Range Interpretation Code Description Data Source(s) Diastolic blood pressure 98 mm[Hg] 98 mm[Hg] eCW1 ([facility]) Systolic blood pressure 171 mm[Hg] 171 mm[Hg] e CW1 ([facility]) Body temperature 97.7 [degF] 97.7 [degF] eCW1 ( [facility]) Heart rate 67 /min 67 /min eCW1 (Count includes the [facility]) Body mass index (BMI) [Ratio] 29.32 kg/m2 29.32 kg/m2 eCW1 ([facility]) Body height 67.5 [in_i] 67.5 [in_i] eCW[facility] ([facility] Body weight 190 [lb_av] 190 [lb_av] eCW1 ([facility]) Diastolic blood pressure 75 mm[Hg] 75 mm[Hg] eCW1 ([facility]) Systolic blood pressure 136 mm[Hg] 136 mm[Hg] e CW1 ([facility]) Body temperature 96.8 [degF] 96.8 [degF] eCW1 ( [facility]) Respiratory rate 18 /min 18 /min eCW1 ([facility]) Heart rate 83 /min 83 /min eCW1 (Count includes the [facility]) Body mass index (BMI) [Ratio] 29.80 kg/m2 29.80 kg/m2 eCW1 ([facility]) Body height 67.5 [in_i] 67.5 [in_i] eCW1 ([facility]) Body weight 193.12 [lb_av] 193.12 [lb_av] eCW1 ([facility]) Diastolic blood pressure 82 mm[Hg] 82 mm[Hg] eCW1 ([facility]) Systolic blood pressure 122 mm[Hg] 122 mm[Hg] e CW1 ([facility]) Body temperature [degF] eCW1 ([facility]) Respiratory rate 18 /min 18 /min eCW1 ([facility]) Heart rate 72 /min 72 /min eCW1 (Count includes the [facility]) Body mass index (BMI) [Ratio] 28.54 kg/m2 28.54 kg/m2 eCW1 ([facility]) Body height 67.5 [in_us] 67.5 [in_us] eCW1 ([facility]) Body weight Measured 185 [lb_av] 185 [lb_av] eC W1 ([facility]) Diastolic blood pressure 79 mm[Hg] 79 mm[Hg] eCW1 ([facility]) Systolic blood pressure 132 mm[Hg] 132 mm[Hg] e CW1 ([facility]) Body temperature [degF] eCW1 ([facility]) Respiratory rate 18 /min 18 /min eCW1 ([facility]) Heart rate 76 /min 76 /min eCW1 (Count includes the [facility]) Body mass index (BMI) [Ratio] 29.32 kg/m2 29.32 kg/m2 eCW1 ([facility]) Body height 67.5 [in_us] 67.5 [in_us] eCW1 ([facility]) Body weight Measured 190 [lb_av] 190 [lb_av] eC W1 ([facility]) Patient Treatment Plan of Care Planned Activity Planned Date Details Description Data Source (s) Omeprazole 40 MG Delayed Release Oral Capsule 03/31/2020 12:00:00 A M EST eCW1 ([facility]) Omeprazole 40 MG Delayed Release Oral Capsule 03/31/2020 12:00:00 A M EST eCW1 ([facility]) Omeprazole 40 MG Delayed Release Oral Capsule 03/31/2020 12:00:00 A M EST eCW1 ([facility]) Omeprazole 40 MG Delayed Release Oral Capsule 03/31/2020 12:00:00 A M EST eCW1 ([facility]) Prednisone 10 MG Oral Tablet 10/24/2019 12:00:00 AM EDT eCW1 ([facility])
[2020-05-18 01:50] LABS: BASO # 0.1 10^3/uL (0.0-0.2); BASO % 0.6 % (0.0-1.0); EOS # 0.3 10^3/uL (0.0-0.5); EOS % 2.3 % (0.0-3.0); HEMATOCRIT 47.9 % (42.0-52.0); HEMOGLOBIN 15.5 g/dl (13.5-17.5); LYMPH % 20.2 % (24.0-44.0); MEAN CORPUSCULAR HEMOGLOBIN 28.1 pg (27.0-33.0); MEAN CORPUSCULAR HGB CONC 32.4 g/dl (32.0-36.5); MEAN CORPUSCULAR VOLUME 86.8 fl (80.0-96.0); MONO # 1.4 10^3/uL (0.0-0.8); MONO % 9.8 % (0.0-5.0); NEUTROPHILS # 9.7 10^3/uL (1.5-8.5); NEUTROPHILS % 66.8 % (36.0-66.0); PLATELET COUNT, AUTOMATED 229 10^3/uL (150-450); RED BLOOD COUNT 5.52 10^6/uL (4.30-6.10); WHITE BLOOD COUNT 14.6 10^3/uL (4.0-10.0)
--- NOTE | 2020-05-18 01:59 | REPVR ---
PROCEDURE INFORMATION: Exam: XR Chest, 1 View Exam date and time: 05/18/2020 1:51 AM Age: 75 years old Clinical indication: Cough and dyspnea; Additional info: Dyspnea/cough TECHNIQUE: Imaging protocol: XR of the chest Views: 1 view. COMPARISON: CR PORTABLE CHEST X-RAY 05/06/2020 1:19 AM FINDINGS: Lungs: Degree of lung inflation is normal. No evidence of pulmonary edema. No focal consolidation or parenchymal lung mass. Pleural space: No pleural effusion or pneumothorax. Heart/Mediastinum: Cardiac silhouette appears normal. No adenopathy or hilar mass. Bones/joints: Osseous structures show no concerning abnormality. IMPRESSION: No acute or focal cardiopulmonary process. Electronically signed by: Donnell Mario On 05/18/2020 01:59:02 AM
[2020-05-18] MEDS ORDERED: SIMETHICONE 80MG CHEW TAB PO PRN (02:00)
[2020-05-18 02:06] LABS: INR 1.97; PROTHROMBIN TIME 22.8 SECONDS (12.5-14.3)
[2020-05-18 02:19] LABS: ALBUMIN 3.8 GM/DL (3.2-5.2); BILIRUBIN,DIRECT 0.4 MG/DL (0.0-0.2); CALCIUM LEVEL 9.8 MG/DL (8.8-10.2); CREATININE FOR GFR 1.38 MG/DL (0.70-1.30); GLOMERULAR FILTRATION RATE 53.6 (>42); POTASSIUM SERUM 3.4 MEQ/L (3.5-5.1); TOTAL PROTEIN 7.2 GM/DL (6.4-8.2)
--- OUTSIDE RECORDS SUMMARY | 2020-05-18 02:22 | CCD ---
Author Author [facility] Organization [facility] Address Unknown Phone Unavailable Care Team Providers Care Group Exercise Class Instructor Name Role Phone Farzad ARANDA Unavailable Unavailable [...] Unavailable Sofia Stewart MD Unavailable Unavailable Sofia Setwart MD Unavailable Unavailable Sofia Stewart MD Unavailable [...] Unavailable Grybowski, T Yoseph Unavailable Grybowski, T Yospeh Unavailable Grybowski, T Yoseph Unavailable Grybowski, T [...] T Yoseph Unavailable + Alberry, D Nedra WINTER SPORTS MANAGER Unavailable Unavailable Alberry, D Nedra WINTER SPORTS MANAGER Unavailable Unavailable Alberry, D Nedra WINTER SPORTS MANAGER Unavailable Unavailable Alberry, D Nedra WINTER SPORTS MANAGER Unavailable Unavailable Alberry, D Nedra WINTER SPORTS MANAGER Unavailable Unavailable Alberry, D Nedra WINTER SPORTS MANAGER Unavailable Unavailable Alberry, D Nedra WINTER SPORTS MANAGER Unavailable Unavailable Alberry, D Nedra WINTER SPORTS MANAGER Unavailable Unavailable Alberry, D Nedra WINTER SPORTS MANAGER Unavailable Unavailable Alberry, D Nedra WINTER SPORTS MANAGER Unavailable Unavailable Alberry, D Nedra WINTER SPORTS MANAGER Unavailable Unavailable Alberry, D Nedra WINTER SPORTS MANAGER Unavailable Unavailable Alberry, D Nedra WINTER SPORTS MANAGER Unavailable Unavailable Alberry, D Nedra WINTER SPORTS MANAGER Unavailable Unavailable Alberry, D Nedra WINTER SPORTS MANAGER Unavailable Unavailable Alberry, D Nedra WINTER SPORTS MANAGER Unavailable Unavailable Alberry, D Nedra WINTER SPORTS MANAGER Unavailable Unavailable Alberry, D Nedra WINTER SPORTS MANAGER Unavailable Unavailable Alberry, D Nedra WINTER SPORTS MANAGER Unavailable Unavailable Alberry, D Nedra WINTER SPORTS MANAGER Unavailable Unavailable Alberry, D Nedra WINTER SPORTS MANAGER Unavailable Unavailable Alberry, D Nedra WINTER SPORTS MANAGER Unavailable Unavailable Alberry, D Nedra WINTER SPORTS MANAGER Unavailable Unavailable Alberry, D Nedra WINTER SPORTS MANAGER Unavailable Unavailable Alberry, D Nedra WINTER SPORTS MANAGER Unavailable Unavailable Alberry, D Nedra WINTER SPORTS MANAGER Unavailable Unavailable Alberry, D Nedra WINTER SPORTS MANAGER Unavailable Unavailable Alberry, D Nedra WINTER SPORTS MANAGER Unavailable Unavailable Alberry, D Nedra WINTER SPORTS MANAGER Unavailable Unavailable Alberry, D Nedra WINTER SPORTS MANAGER Unavailable Unavailable Alberry, D Nedra WINTER SPORTS MANAGER Unavailable Unavailable Alberry, D Nedra WINTER SPORTS MANAGER Unavailable Unavailable Alberry, D Nedra WINTER SPORTS MANAGER Unavailable Unavailable Alberry, D Nedra WINTER SPORTS MANAGER Unavailable Unavailable Alberry, D Nedra WINTER SPORTS MANAGER Unavailable Unavailable Alberry, D Nedra WINTER SPORTS MANAGER Unavailable Unavailable Alberry, D Nedra WINTER SPORTS MANAGER Unavailable Unavailable Alberry, D Nedra WINTER SPORTS MANAGER Unavailable Unavailable Alberry, D Nedra WINTER SPORTS MANAGER Unavailable Unavailable Alberry, D Nedra WINTER SPORTS MANAGER Unavailable Unavailable Alberry, D Nedra WINTER SPORTS MANAGER Unavailable Unavailable Alberry, D Nedra WINTER SPORTS MANAGER Unavailable Unavailable Alberry, D Nedra WINTER SPORTS MANAGER Unavailable Unavailable Alberry, D Nedra WINTER SPORTS MANAGER Unavailable Unavailable Alberry, D Nedra WINTER SPORTS MANAGER Unavailable Unavailable Alberry, D Nedra WINTER SPORTS MANAGER Unavailable Unavailable Alberry, D Nedra WINTER SPORTS MANAGER Unavailable [facility]available [facility] Unavailable Unavailable Kavya [...] is protected by Article 27-F of the [facility] Public Health law. If you continue you may have access to information: Regarding HIV / AIDS; Provided by facilities licensed or operated by the [facility] Office of Mental Health; or Provided by the [facility] Office for People With Developmental Disabilities. If such information is present, then the following [facility] mandated warning applies: This information has been [...] law may result in a fine or fci sentence or both. A general authorization for the release of medical or other information is NOT sufficient authorization for further disc losure. Allergies and Adverse Reactions Type Description Substance Reaction Status Data Source(s ) Drug allergy Avelox moxifloxacin Tachycardia Active eCW1 ([facility]) Seasonal Seasonal Seasonal Dyspnea Active eCW1 ([facility]) Seasonal Seasonal Seasonal Dyspnea Active eCW1 ([facility]) Family History Family Member Name Family Member Gender Family Member Status Date o f Status Description Data Source(s) Unknown Unknown Encounters Encounter Providers Location Date Indications Data Source(s ) Unknown [address] [facility] [address] 05/14/2020 12:00:00 AM EST eCW1 ([facility]) Unknown [address] [facility] [address] 05/07/2020 12:00:00 AM EST eCW1 ([facility]) Outpatient [address] [facility] [address] 05/05/2020 12:00:00 AM EST eCW1 ([facility]) Outpatient [address] [facility] [address] 04/21/2020 12:00:00 AM EST eCW1 ([facility]) (PT/INR TV) Telephone Encounter Visit [address] [place] [address] 04/08/2020 12:00:00 AM EST eCW1 ([facility]) Unknown [address] [facility] [address] 04/08/2020 12:00:00 AM EST eCW1 ([facility]) Outpatient [address] [facility] [address] 03/31/2020 12:00:00 AM EST eCW1 ([facility]) Unknown [address] [facility] [address] 03/18/2020 12:00:00 AM EST eCW1 ([facility]) Outpatient [address] [facility] [address] 03/17/2020 12:00:00 AM EST eCW1 ([facility]) [place] [address] [facility] [address] 02/18/2020 12:00:00 AM EDT eCW1 ([facility]) [place] [address] [facility] [address] 02/10/2020 12:00:00 AM EDT eCW1 ([facility]) [place] [address] [facility] [address] 02/03/2020 12:00:00 AM EDT eCW1 ([facility]) [place] [address] [facility] [address] 11/19/2019 12:00:00 AM EDT eCW1 ([facility]) [place] [address] [facility] [address] 11/12/2019 12:00:00 AM EDT eCW1 ([facility]) [place] [address] [facility] [address] 11/05/2019 12:00:00 AM EDT eCW1 ([facility]) [place] [address] [facility] [address] 10/24/2019 12:00:00 AM EDT eCW1 ([facility]) [place] [address] [facility] [address] 10/15/2019 12:00:00 AM EDT eCW1 ([facility]) [place] [address] [facility] [address] 09/17/2019 12:00:00 AM EDT eCW1 ([facility]) [facility] [address] [facility] [address] 09/17/2019 12:00:00 AM EDT eCW1 ([facility]) [facility] [address] [facility] [address] 09/03/2019 12:00:00 AM EDT eCW1 ([facility]) [facility] [place] [address] [facility] [address] 09/03/2019 12:00:00 AM EDT eCW1 ([facility]) [facility] [place] [address] [facility] [address] 08/20/2019 12:00:00 AM EDT eCW1 ([facility]) [facility] [place] [address] [place] [address], [place] [address] 08/20/2019 12:00:00 AM EDT eCW1 ([facility]) [facility] Tomas Corbett [address] [place] [address] 08/07/2019 12:00:00 AM EDT eCW1 ([facility]) [facility] [place] [address] [place] [address], [place] [address] 07/23/2019 12:00:00 AM EDT eCW1 ([facility]) [facility] [place] [address] [place] [address], [place] [address] 07/02/2019 12:00:00 AM EST eCW1 ([facility]) [facility] [place] [address] [place] [address], [place] [address] 06/18/2019 12:00:00 AM EST eCW1 ([facility]) [facility] [place] [address] [place] [address], [place] [address] 06/11/2019 12:00:00 AM EST eCW1 ([facility]) [facility] [address] [address] 06/01/2019 12:00:00 AM EST eCW1 ([facility]) [address] [address] 05/28/2019 12:00:00 AM EST eCW1 ([facility]) [address] [address] 05/27/2019 12:00:00 AM EST eCW1 ([facility]) [address] [address] 05/07/2019 12:00:00 AM EST eCW1 ([facility]) [address] [address] 05/01/2019 12:00:00 AM EST eCW1 ([facility]) Outpatient Attender: Sofia Stewart MDReferrer: Sofia JOSE-SJP 04/29/2019 09:08:58 AM EST - 04/29/2019 10:35:18 AM EST [facility] Outpatient Attender: Sofia JOSE-SJP.HIMANSHU 03/30 12:00:00 AM EST [address] [address] 04/03/2019 12:00:00 AM EST eCW1 ([facility]) [address] [address] 04/02/2019 12:00:00 AM EST eCW1 ([facility]) Outpatient Attender: Rina Epstein MDConsultant: [facility] [id number] 03/23/2019 07:05:00 PM [facility] Inpatient Attender: Rina Epstein MDAttender: SHAWN ARANDA PAAdmitter: Rina Epstein MDReferrer: Yoseph Duarte EMERGENCY ROOM-2N 03/23/2019 12:24:00 PM EST - 03/24/2019 02:26:00 PM [facility] Patient discharged. Outpatient Attender: Nedra RUBIOP 0 12/26/2017 11:05:00 AM EDT - 12/26/2017 11:05:00 AM [facility] Immunizations Vaccine Date Status Description Data Source(s) influenza, recombinant, quadrIvalent,injectable, prese rvative free 01/21/2020 09:48:00 AM EDT completed eCW1 ([facility]) influenza, recombinant, quadrIvalent,injectable, prese rvative free 01/21/2020 09:48:00 AM EDT completed eCW1 ([facility]) influenza, recombinant, quadrIvalent,injectable, prese rvative free 01/21/2020 09:48:00 AM EDT completed eCW1 ([facility]) influenza, recombinant, quadrIvalent,injectable, prese rvative free 01/21/2020 09:48:00 AM EDT completed eCW1 ([facility]) influenza, recombinant, quadrIvalent,injectable, prese rvative free 01/21/2020 09:48:00 AM EDT completed eCW1 ([facility]) influenza, recombinant, quadrIvalent,injectable, prese rvative free 01/21/2020 09:48:00 AM EDT completed eCW1 ([facility]) influenza, recombinant, quadrIvalent,injectable, prese rvative free 01/21/2020 09:48:00 AM EDT completed eCW1 ([facility]) influenza, recombinant, quadrIvalent,injectable, prese rvative free 01/21/2020 09:48:00 AM EDT completed eCW1 ([facility]) influenza, recombinant, quadrIvalent,injectable, prese rvative free 01/21/2020 09:48:00 AM EDT completed eCW1 ([facility]) influenza, recombinant, quadrIvalent,injectable, prese rvative free 01/21/2020 09:48:00 AM EDT completed eCW1 ([facility]) Medications Medication Brand Name Start Date Product Form Dose Route Admi nistrative Instructions Pharmacy Instructions Status Indications Reaction Description Data Source(s) Omeprazole 40 MG Delayed Release Oral Capsule Omeprazole 40 MG 03/31/2020 12:00:00 AM EST active Omeprazo le 40 MG eCW1 ([facility]) Omeprazole 40 MG Delayed Release Oral Capsule Omeprazole 40 MG 03/31/2020 12:00:00 AM EST active Omeprazo le 40 MG eCW1 ([facility]) 40 mg 03/31/2020 12:00:00 AM EST capsule,delayed release (DR/EC) 30 TAKE ONE CAPSULE BY MOUTH EVERY MORNING 30 MINUTES BEFORE MORNING MEAL TAKE ONE CAPSULE BY MOUTH EVERY MORNING 30 MINUTES BEFORE MORNING MEAL SOLD: 03/31/2020 [facility] Omeprazole 40 MG Delayed Release Oral Capsule Omeprazole 40 MG 03/31/2020 12:00:00 AM EST active Omeprazo le 40 MG eCW1 ([facility]) Omeprazole 40 MG Delayed Release Oral Capsule Omeprazole 40 MG 03/31/2020 12:00:00 AM EST active Omeprazo le 40 MG eCW1 ([facility]) Omeprazole 40 MG Delayed Release Oral Capsule Omeprazole 40 MG 03/31/2020 12:00:00 AM EST active Omeprazo le 40 MG eCW1 ([facility]) Omeprazole 40 MG Delayed Release Oral Capsule Omeprazole 40 MG 03/31/2020 12:00:00 AM EST active Omeprazo le 40 MG eCW1 ([facility]) Omeprazole 40 MG Delayed Release Oral Capsule Omeprazole 40 MG 03/31/2020 12:00:00 AM EST active Omeprazo le 40 MG eCW1 ([facility]) 25 mg 03/10/2020 12:00:00 AM EST tablet [...] MOUTH TWICE A DAY SOLD: 2020 [facility] Prednisone 10 MG Oral Tablet PredniSONE 10 MG PredniSONE 10 MG 10/24/2019 12:00:00 AM EDT 4.0 {tablets} active P redniSONE 10 MG eCW1 ([facility]) Prednisone 10 MG Oral Tablet PredniSONE 10 MG PredniSONE 10 MG 10/24/2019 12:00:00 AM EDT 4.0 {tablets} active P redniSONE 10 MG eCW1 ([facility]) Prednisone 10 MG Oral Tablet PredniSONE 10 MG PredniSONE 10 MG 10/24/2019 12:00:00 AM EDT 4.0 {tablets} active P redniSONE 10 MG eCW1 ([facility]) Prednisone 10 MG Oral Tablet PredniSONE 10 MG PredniSONE 10 MG 10/24/2019 12:00:00 AM EDT 4.0 {tablets} active P redniSONE 10 MG eCW1 ([facility]) Prednisone 10 MG Oral Tablet PredniSONE 10 MG PredniSONE 10 MG 10/24/2019 12:00:00 AM EDT 4.0 {tablets} active P redniSONE 10 MG eCW1 ([facility]) Prednisone 10 MG Oral Tablet PredniSONE 10 MG PredniSONE 10 MG 10/24/2019 12:00:00 AM EDT 4.0 {tablets} active P redniSONE 10 MG eCW1 ([facility]) Prednisone 10 MG Oral Tablet PredniSONE 10 MG PredniSONE 10 MG 10/24/2019 12:00:00 AM EDT 4.0 {tablets} active P redniSONE 10 MG eCW1 ([facility]) Prednisone 10 MG Oral Tablet PredniSONE 10 MG PredniSONE 10 MG 10/24/2019 12:00:00 AM EDT 4.0 {tablets} active P redniSONE 10 MG eCW1 ([facility]) Prednisone 10 MG Oral Tablet PredniSONE 10 MG PredniSONE 10 MG 10/24/2019 12:00:00 AM EDT 4.0 {tablets} active P redniSONE 10 MG eCW1 ([facility]) Prednisone 10 MG Oral Tablet PredniSONE 10 MG PredniSONE 10 MG 10/24/2019 12:00:00 AM EDT 4.0 {tablets} active P redniSONE 10 MG eCW1 ([facility]) Prednisone 10 MG Oral Tablet PredniSONE 10 MG PredniSONE 10 MG 10/24/2019 12:00:00 AM EDT 4.0 {tablets} active P redniSONE 10 MG eCW1 ([facility]) Prednisone 10 MG Oral Tablet PredniSONE 10 MG PredniSONE 10 MG 10/24/2019 12:00:00 AM EDT 4.0 {tablets} active P redniSONE 10 MG eCW1 ([facility]) Prednisone 10 MG Oral Tablet PredniSONE 10 MG PredniSONE 10 MG 10/24/2019 12:00:00 AM EDT 4.0 {tablets} active P redniSONE 10 MG eCW1 ([facility]) 10 mg 10/24/2019 12:00:00 AM EDT tablet [...] type / Coverage type Policy ID Covered democrat ID Covered democrat's relationship to page Policy Page Plan Information MEDICARE BLUE PPO 306 [id number] SP [id number] MEDICARE BLUE PPO 306 [id number] SP [id number] EXCELLUS BCBS MEDICARE [id number] Verenice [id number] [facility] [id number] S [id number] [facility]LL[facility] [id number] S [id number] ANSI-Medicare Part B [id number] ANSI-Medicare Part B [id number] ANSI-Medicare Part B [id number] ANSI-Medicare Part B [id number] ANSI-Medicare Part B [id number] ANSI-Medicare Part B [id number] ANSI-Medicare Part B [id number] ANSI-Medicare Part B [id number] ANSI-Medicare Part B [id number] ANSI-Medicare Part B [id number] ANSI-Medicare Part B [id number] ANSI-Medicare Part B [id number] ANSI-Medicare Part B [id number] ANSI-Medicare Part B [id number] ANSI-Medicare Part B [id number] ANSI-Medicare Part B [id number] ANSI-Medicare Part B [id number] ANSI-Medicare Part B [id number] ANSI-Medicare Part B [id number] ANSI-Medicare Part B [id number] ANSI-Medicare Part B [id number] ANSI-Medicare Part B [id number] ANSI-Medicare Part B [id number] ANSI-Medicare Part B [id number] EXCELLUS BCBS B [id number] S [id number] ANSI-Medicare Part B [id number] ANSI-Medicare Part B [id number] [place]BS [place] [id number] S [id number] [facility] MEDICARE DIVISION [id number] S [id number] MEDICARE - [place] [id number] S [id number] ANSI-Medicare Part B [id number] ANSI-Medicare Part B [id number] [place] [id number] S [id number] ANSI-Medicare Part B [id number] ANSI-Medicare Part B [id number] MEDICARE [id number] SP [id number] A MEDICARE BLUE PPO 306 [id number] SP [id number] MEDICARE BLUE PPO 306 [id number] SP [id number] MEDICARE BLUE PPO 306 [id number] SP [id number] MEDICARE BLUE PPO 306 [id number] SP [id number] MEDICARE BLUE PPO 306 [id number] SP [id number] SELF PAY ONLY 0000 SP 0000 MEDICARE BLUE PPO 306 [id number] SP [id number] [place] Primary Self Medicare Advantage BCBS Commercial Self MEDICARE UNAVAILABLE SP UNAVAILA BLE BCBS [place] PPO 302/307 [id number] SP [id number] [place] 306/806 [id number] SP [id number] MEDICARE BLUE PPO 306 [id number] SP [id number] EXCELLUS BCBS P [id number] S [id number] SELF PAY UNAVAILABLE SP UNAVAILA BLE BCBS [place] PPO 302/307 [id number] SP [id number] BLUE CROSS BLUE SHIELD-O/P [id number] MEDICARE -O/P [id number] 18 [id number] BLUE CROSS BLUE SHIELD-O/P [id number] Problems, Conditions, and Diagnoses Code Display Name Description Problem Type Effective Dates Data Source(s) K21.9 [id number] Gastroesophageal ref lux disease, unspecified whether esophagitis present Problem 03/31/2020 12:00:00 AM EST eCW1 ([facility]) J44.1 Acute exacerbation of chronic bronchitis COPD exacerba tion Problem 10/24/2019 12:00:00 AM EDT eCW1 ([facility]) M19.011 [id number] 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 Problem 06/18/2019 12:00:00 AM EST eCW1 ([facility]) M19.011 [id number] 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 Problem 06/18/2019 12:00:00 AM EST eCW1 ([facility]) I50.9 Heart failure, unspecified Heart failure, unspecified Diagnosis 04/29/2019 09:08:58 AM EST [facility] I48.91 Unspecified atrial fibrillation Unspecified atri al fibrillation Diagnosis 04/29/2019 09:08:58 AM [facility] I25.10 Atherosclerotic heart diseas e of [place] coronary artery without angina pectoris Atherosclerotic heart disease of [place] Diagnosis 04/29/2019 09:08:58 AM [facility] Z95.5 Presence of coronary angioplasty implant and graft PRESENCE OF CORONARY ANGIOPLASTY IMPLANT AND GRAFT Diagnosis 03/23/2019 12:24:00 PM [facility] Z87.891 Personal history of nicotine dependence PERSONAL HISTORY OF NICOTINE DEPENDENCE Diagnosis 03/23/2019 12:24:00 PM [facility] Z79.51 rn long term care (current) use of inhaled stero ids HALF-WAY (CURRENT) USE OF INHALED STEROIDS Diagnosis 03/23/2019 12:24:00 PM [facility] Z79.01 residential (current) use of anticoagulant s HALF-WAY (CURRENT) USE OF ANTICOAGULANTS Diagnosis 03/23/2019 12:24:00 PM [facility] J44.9 Chronic obstructive pulmonary disease, u nspecified CHRONIC OBSTRUCTIVE PULMONARY DISEASE, UNSPECIFIED Diagnosis 03/23/2019 12:24:00 PM [facility] M19.90 Unspecified osteoarthritis, unspecified site UNSPECIFIED OSTEOARTHRITIS, UNSPECIFIED SITE Diagnosis 03/23/2019 12:24:00 PM [facility] I48.20 CHRONIC ATRIAL FIBRILLATION, UNSPECIFIED CHRONIC ATRIAL FIBRILLATION, UNSPECIFIED Diagnosis 03/23/2019 12:24:00 PM [facility] I25.2 Old myocardial infarction OLD MYOCARDIAL INFARCTION Di agnosis 03/23/2019 12:24:00 PM [facility] I50.9 Heart failure, unspecified HEART FAILURE, UNSPECIFIED Diagnosis 03/23/2019 12:24:00 PM [facility] I11.0 Hypertensive heart disease with heart fa ilure HYPERTENSIVE HEART DISEASE WITH HEART FAILURE Diagnosis 03/23/2019 12[facility]24:[facility] I25.9 Chronic ischemic heart disease, unspecif ied CHRONIC ISCHEMIC HEART DISEASE, UNSPECIFIED Diagnosis 03/23/2019 12:24:00 PM [facility] R26.2 Difficulty in walking, not elsewhere cla ssified DIFFICULTY IN WALKING, NOT ELSEWHERE CLASSIFIED Diagnosis 03/23/2019 12:24:00 PM [facility] R55 Syncope and collapse SYNCOPE AND COLLAPSE Diagnosis 03/23/2019 12:24:00 PM [facility] R11.2 Nausea with vomiting, unspecified NAUSEA WITH VO MITING, UNSPECIFIED Diagnosis 03/23/2019 12:24:00 PM [facility] Surgeries/Procedures Procedure Description Date Indications Data Source(s) RADEX ELBOW COMPLETE MINIMUM 3 VIEWS 12/02/2019 12:00: 00 AM EDT [facility]ENT ([facility]) PROTHROMBIN TIME 09/03/2019 12:00:00 AM EDT eCW1 ([facility]) AntiCoag Mgmt Pt for Warfarin 09/03/2019 12:00:00 AM E DT eCW1 ([facility]) Office Visit, Est Pt., Level 2 FC 06/18/2019 12:00:00 AM EST eCW1 ([facility]) Office Visit, Est Pt., Level 4 PC 06/18/2019 12:00:00 AM EST eCW1 ([facility]) VENIPUNCT, ROUTINE* 04/02/2019 12:00:00 AM EST eCW1 ([facility]) Results ID Date Data Source PT-INR Fingerstick 04/08/2020 12:00:00 AM EST eCW1 ([facility]) Name Value Range Interpretation Code Description Data Verito rce(s) Supporting Document(s) 2.5mg ROW Current Dose 2 eCW1 ([facility]) 2.3 INR eCW1 ([facility]) 5mg MWF Current Dose 1 eCW1 ([facility]) yes Verified Patient's Name and DO B eCW1 ([facility]) yes Internal QC Acceptable (Y/N) e CW1 [facility] [facility] no Recent Bleeding eCW1 ([facility]ly [facility]) AFIB Indication for Anticoagulation eCW1 ([facility]) 5mg tabs Tab Strength eCW1 (Formerly [facility]) per no change in dose recheck 2 weeks New Dose 1 eCW1 ([facility]) Education Given (Date / Initia ls) eCW1 ([facility]) New Dose 2 eCW1 (Counts include 234 beds at the [facility]) 2-3 Therapeutic Range eCW1 ([facility]) Weekly Total eCW1 ([facility]) 04/21/2020 Next PT-INR eCW1 ([facility]ly [facility]) - eCW1 (Formerly [facility]) ID Date Data Source PT-INR 05/28/2019 12:00:00 AM EST eCW1 (Formerly [facility]) Name Value Range Interpretation Code Description Data Verito rce(s) Supporting Document(s) Prothrombin time (PT) 34.6 11.8-14.0 PROTHROMBIN TI ME eCW1 ([facility]) INR in Platelet poor plasma by Coagulation assay 3.43 INR eCW1 ([facility]) ID Date Data Source [id number] 05/01/2019 10:13:21 AM EST [facility] Name Value Range Interpretation Code Description Data Verito rce(s) Supporting Document(s) &PDF [facility] KTVUFc1cVaNTMgIh70/AOKvbBSHao5MwAXtiRRt5POvxOMZiA6HynZtxCWkLCchOJSVcRWBNBZBTUE5l [facility] [file] ICAgICAgICAgICAgICAgICAgICAgICAgICAgICAgICAgICAgICAgICAgICAgICAgICAgICAgICAgICAg ICAgICAgICAgICAgICAgICAgICAgICAgDQogICAgICAgICAgICAgICAgICAgICAgICAgICAgICAgICAg ICAgICAgICAgICAgICAgICAgICAgICAgICAgICAgIC AgICAgICAgICAgICAgICAgICAgICAgICAgICAgICAgICAgDQogICAgICAgICAgICAgICAgICAgICAgIC AgICAgICAgICAgICAgICAgICAgICAgICAgICAgICAgICAgICAgICAgICAgICAgICAgICAgICAgICAgIC AgICAgICAgICAgICAgICAgDQogICAgICAgICAgICAg ICAgICAgICAgICAgICAgICAgICAgICAgICAgICAgICAgICAgICAgICAgICAgICAgICAgICAgICAgICAg ICAgICAgICAgICAgICAgICAgICAgICAgICAgDQogICAgICAgICAgICAgICAgICAgICAgICAgICAgICAg ICAgICAgICAgICAgICAgICAgICAgICAgICAgICAgIC AgICAgICAgICAgICAgICAgICAgICAgICAgICAgICAgICAgICAgDQogICAgICAgICAgICAgICAgICAgIC AgICAgICAgICAgICAgICAgICAgICAgICAgICAgICAgICAgICAgICAgICAgICAgICAgICAgICAgICAgIC AgICAgICAgICAgICAgICAgICAgDQogICAgICAgICAg ICAgICAgICAgICAgICAgICAgICAgICAgICAgICAgICAgICAgICAgICAgICAgICAgICAgICAgICAgICAg ICAgICAgICAgICAgICAgICAgICAgICAgICAgICAgDQogICAgICAgICAgICAgICAgICAgICAgICAgICAg ICAgICAgICAgICAgICAgICAgICAgICAgICAgICAgIC AgICAgICAgICAgICAgICAgICAgICAgICAgICAgICAgICAgICAgICAgDQogICAgICAgICAgICAgICAgIC AgICAgICAgICAgICAgICAgICAgICAgICAgICAgICAgICAgICAgICAgICAgICAgICAgICAgICAgICAgIC AgICAgICAgICAgICAgICAgICAgICAgDQogICAgICAg ICAgICAgICAgICAgICAgICAgICAgICAgICAgICAgICAgICAgICAgICAgICAgICAgICAgICAgICAgICAg YQOwKJIwSTUpPFVdLIFqWRRzTQHdGFLqGASbIMNbRPAbKGm0O0myKWNzTZPuRX1sKRn1Rl6+DQoNCmVu GRO8xiIylS0NGF6xf7RtUStvSTBgc7OnYSw4TI9TCS MdIZgvIV0XCEgnaz6KJVAeBEFhxNLTk9upZhSjCFT4HTOyGfnxWS5PLYHwP2xcmxVcHAHcORFFOOeqRN RUFW0RKbQiS0XkaS07KLKACw0+SVvihsZmVwvRYbUdLKKtm7SnPHs8IA0RNUSlIXgaTO5UNIOfnC0eDF wsVU9ULyBrSLXaNBXOGqEuU07qvPSrQRm5B1QuRjWy ZGVkRmlsZXMgPDwvTmFtZXMgWyBdDQogID4+ID4+EHkvDL5VKKkfwkIkUGWtYz7QSKJhNUG8BRDnjFDd LrArLDNLDZwmQJ2NcTUxPSC9jX4pVBcnQXWtYKJvV8uDYyGtrLeyUF26nJbaplAjiFNxDYd+Vj7UBS7a q7PfRFm8slIyWZicVTQnPTtpPLVhFLCkAVYbPKR2BJ F5ZBMIXiMuMWFeLXZrTUcvBANpWCJden6TWWZlWRHjEPV7RZStVMBvGXYjMZuyLPHtCPAhDZI5MLUmWW RzHT5WBrAnBDLvHYTdFOOnTHYoXBOiyk1NRIQdGQXqDfkjGUJhBOVfVMVlNRncTFIbUDZ5AYB6UKLrBJ VtSK6ICzUyVYKxRIMqNhDlSJAuMSEkli0ABFRmRSZe MbFwQAVsNVUeVJAsWQmfFLGmQQZ1DHrqEEVqBHQnRK8IFeJoXDPpHUj7AOfoHKTlNDMcum6GGWCgFXSi Bls8QRZnTERjNLWdESiqURWvNGF1UEC4PCOwHCEuPK8IApErTLJoARakDtCxWASvZLJnoi3SFUNmCHLw LANyHVUrLALiEZXeRTcgDCOcQMExNZz2XPJxGHPtTB 1WDwLgAPCgIMJgEfevKLCkRILfrg4MTGCwTZUiWMQ0NzUrXTTfJYYfZOfxDWEbXKQ1FpN3WUOaOWFpRY 1VHsCjQYCzXUdhWaViWUQhNVWxdr2QZLXyUKMcGIshTVEvFKEyDSBfXUhwHWBnLPQxRJN2HLQrWUCsTY 4FBlOyRKnxMXKTUww5HGsnI4p7ZKJnEf3BJ1Ijj8My PbRyINEVYNfjRG6qmmXpKLDlDb4QJ9xBCrrpL8OrHzGpWcAfBhO9QtG3RoWqMxFmUVw2D8U6TgU4HG4h NRBxFuU6AzYnTYSoGYzyZzzxBoXyRhXaDTCwUkbmSZOkDjNyNM4IZr6ULfI0POV4nTJxQs6YGhWwAqAA DyNyTA5UOJu= ID Date Data Source [id number] 03/26/2019 03:46:00 PM [facility] Patient: ANA MAYO Observation R eport - Physicians/Mid Levels [facility].VisitID: [id number] [place] [address] [phone], MRegistration Date/Time: 03/23/2019 10:29 Weight:88.1 kg. Height/Length:68 [...] of exam: Irregular heart rate, Systolic murmur,. pvc monitor applied. ED course / condition: improved with [...] 06:40)( MsgRcvd 03/24/2019 06:55) New Order TSYSORDER [id number] Test Result Flag Units (Reference)WHITE BLOOD COUNT [...] (0.0-0.2) PT with INR: (YAHAIRA: 03/24/2019 06:40)( [facility] 03/24/2019 07:11) New Order TSYSORDER [id number] Test Result Flag Units (Reference)PROTHROMBIN TIME (PATIENT) 25.3 H SECONDS (9.2-11.6) INR 2.50 H (0.87-1.06) CMP: (YAHAIRA: 03/24/2019 06:40)( [facility] [place]/24/[place] 07:22) New Order TSYSORDER [id number] Test Result Flag Units (Reference)GLUCOSE 106 mg/dL (74-106) BLOOD UREA NITROGEN 14 mg/dL (7-18) CREATININE 0.9 mg/dL (0.7-1.3) SODIUM 139 mmol/L (136-145) POTASSIUM 3.5 mmol/L (3.5-5.1) CHLORIDE 101 mmol/L (98-107) CO2 34 H mmol/L (21-32) CALCIUM 8.5 mg/dL (8.5-10.1) ANION GAP 4.0 L mmol/L (5-12) GLOMERULAR FILTRATION RATE 83 mL/min GFR IS CALCULATED IN mL/min/1.46y5JXDMHM FUNCTION: >90MILDLY DECREASED: 60-89MILDY TO MODERATELY DECREASED: 45-59 MODERATELY TO SEVERELY DECREASED: 30-44SEVERELY DECREASED: 15- 29RENAL FAILURE: <15 AST 20 U/L (15-37) ALT 22 U/L (12-78) ALKALINE PHOSPHATASE 78 U/L (46-116) TOTAL BILIRUBIN 0.9 mg/dL (0.2-1.0) TOTAL PROTEIN 6.0 L g/dl (6.4-8.2) ALBUMIN 2.9 L gm/dL (3.4-5.0) Troponin-I: (YAHAIRA: 03/23/2019 23:15)( MsgRcvd 03/23/2019 23:52) New Order TSYSORDER [id number] Test Result Flag Units (Reference)TROPONIN I < 0.017 ng/mL (0.0-0.056) Troponin-I: (YAHAIRA: 03/23/2019 17:25)( MsgRcvd 03/23/2019 17:55) New Order TSYSORDER [id number] Test Result Flag Units (Reference)TROPONIN I < 0.017 ng/mL (0.0-0.056) CT Head wo IV Cont: (YAHAIRA: 03/23/2019 11:16)( [facility] [place]/23/[place] 12:01) Exam BRAIN W/O CONTRAST DATE [...] 10:40)( MsgRcvd 03/23/2019 10:53) New Order TSYSORDER [id number] Test Result Flag Units (Reference)WHITE BLOOD COUNT [...] 10:40)( MsgRcvd 03/23/2019 11:14) New Order TSYSORDER [id number] Test Result Flag Units (Reference)GLUCOSE 173 H mg/dL (74-106) BLOOD UREA NITROGEN 25 H mg/dL (7-18) CREATININE 1.1 mg/dL (0.7-1.3) SODIUM 139 mmol/L (136-145) POTASSIUM 3.3 L mmol/L (3.5-5.1) CHLORIDE 99 mmol/L (98-107) CO2 33 H mmol/L (21-32) CALCIUM 9.2 mg/dL (8.5-10.1) ANION GAP 7.0 mmol/L (5-12) GLOMERULAR FILTRATION RATE 66 mL/min GFR IS CALCULATED IN mL/min/1.15j3GWTQIU FUNCTION: >90MILDLY DECREASED: 60-89MILDY TO MODERATELY DECREASED: [...] hc of coronary artery disease, history of CA in 2010, hx of coronary stents placed [...] rce(s) Supporting Document(s) ID Date Data Source [id number] 03/24/2019 10:09:00 AM EST [facility]:REFERRAL FOR [place] RDIOGRAM Dx: FAINTING EPISODES, SYSTOLIC MURMUR, ATRIAL FIBRILLATION, HX OF CA 2010 Name Value Range Interpretation Code Description Data Verito rce(s) Supporting Document(s) ID Date Data Source [id number] 03/24/2019 09:59:00 AM EST [facility] NoteNote: REFERRAL FOR ECHO CARDIOGRAM [facility] Dx: Atrial Fibrillation, Syncopal Episodes, Systolic Murmur, Hx of CA 2011, CAD PCP- Dr Duarte Name Value Range Interpretation Code Description [facility] Document(s) ID Date Data Source [id number] 03/24/2019 09:19:00 AM EST [facility] [...] Name Value Range Interpretation Code Description Data [facility] Supporting Document(s) ID Date Data Source [id number] 03/24/2019 07:21:00 AM EST [facility] TSYSORDER [id number] Name Value Range Interpretation Code Description Data [facility](s) Supporting Document(s) GLUCOSE 106 mg/dL 74-106 [facility] BLOOD UREA NITROGEN 14 mg/dL 7-18 [facility] ital CREATININE 0.9 mg/dL 0.7-1.3 [facility] SODIUM 139 mmol/L 136-145 [facility] POTASSIUM 3.5 mmol/L 3.5-5.1 [facility] CHLORIDE 101 mmol/L 98-107 [facility] CO2 34 mmol/L 21-32 H [facility] CALCIUM 8.5 mg/dL 8.5-10.1 [facility] ANION GAP 4.0 mmol/L 5-12 L [facility] GLOMERULAR FILTRATION RATE 83 mL/min [facility] GFR IS CALCULATED IN mL/min/1.73m2 JAYJAY L FUNCTION: >90MILDLY DECREASED: 60-89MILDY TO MODERATELY DECREASED: 45-59 MODERATELY TO SEVERELY DECREASED: 30-44SEVERELY DECREASED: 15-29RENAL FAILURE: <15 AST 20 U/L 15-37 [facility] ALT 22 U/L 12-78 [facility] ALKALINE PHOSPHATASE 78 U/L 46-116 [facility] TOTAL BILIRUBIN 0.9 mg/dL 0.2-1.0 [facility] TOTAL PROTEIN 6.0 g/dl 6.4-8.2 L [facility] ALBUMIN 2.9 gm/dL 3.4-5.0 L [facility] ID Date Data Source [id number] 03/24/2019 07:10:00 AM [facility] TSYSORDER [id number] Name Value Range Interpretation Code Description Data Verito rce(s) Supporting Document(s) PROTHROMBIN TIME (PATIENT) 25.3 SECONDS 9.2-11.6 H [facility] INR 2.50 0.87-1.06 H [facility] ID Date Data Source [id number] 03/24/2019 06:55:00 AM [facility] TSYSORDER [id number] Name Value Range Interpretation Code Description Data Verito rce(s) Supporting Document(s) WHITE BLOOD COUNT 8.5 K/mm3 4.0-10.0 [facility] al RED BLOOD COUNT 4.88 M/mm3 4.50-6.00 [facility] HEMOGLOBIN 13.1 gm/dL 14.0-18.0 L [facility] HEMATOCRIT 40.6 % 42.0-54.0 [facility] MEAN CELL VOLUME 83.2 fl 80-96 [facility] MEAN CORPUSCULAR HEMOGLOBIN 26.8 pg 27.0-31.0 L [facility] MEAN CORPUSCULAR HGB CONC 32.3 g/dl 32.0-36.0 [facility] RED CELL DISTRIBUTION WIDTH 14.9 % 10.0-14.5 H [facility] PLATELET COUNT 185 K/mm3 172-450 [facility] MEAN PLATELET VOLUME 11.8 fl 9.0-13.0 [facility] pital GRAN % 70.2 % 50-80.0 [facility] IG% 0.1 % 0.0-0.2 [facility] LYMPH % 16.9 % 25.0-50.0 L [facility] MONO % 9.9 % 2.0-10.0 [facility] EOS % 2.5 % 0-5.0 [facility] BASO % 0.4 % 0.0-2.0 [facility] GRAN # 6.0 K/mm3 2.0-8.00 [facility] IG# 0.0 K/mm3 0.0-0.2 [facility] LYMPH # 1.4 K/mm3 1.0-5.0 [facility] MONO # 0.8 K/mm3 0.10-1.20 [facility] EOS # 0.2 K/mm3 0.0-0.5 [facility] BASO # 0.0 K/mm3 0.0-0.2 [facility] ID Date Data Source [id number] 03/23/2019 11:51:00 PM [facility] TSYSORDER [id number] Name Value Range Interpretation Code Description Data Verito rce(s) Supporting Document(s) TROPONIN I < 0.017 ng/mL 0.0-0.056 [facility] ID Date Data Source [id number] 03/26/2019 01:55:00 PM [facility] Name Value Range Interpretation Code Description Data Verito rce(s) Supporting Document(s) [facility] ID Date Data Source [id number] 03/24/2019 11:54:00 AM [facility] TSYSORDER [id number] Name Value Range Interpretation Code Description Data Verito rce(s) Supporting Document(s) URINE RBC 0-2 /hpf 0-3 [facility] URINE WBC 0-2 /hpf 0-5 [facility] URINE EPITHELIAL CELLS NONE SEEN /hpf 0 [facility] URINE MUCUS 1+ NEGATIVE H [facility] ID Date Data Source [id number] 03/24/2019 11:43:00 AM [facility] ital TSYSORDER [id number] Name Value Range Interpretation Code Description Data Verito rce(s) Supporting Document(s) URINE COLOR. [facility] URINE APPEARANCE CLEAR [facility] l SPECIFIC GRAVITY,URINE 1.020 1.001-1.035 [facility] URINE LEUKOCYTE ESTERASE NEGATIVE NEGATIVE [facility] URINE NITRATE NEGATIVE NEGATIVE [facility] PH,URINE 7.0 5.0-9.0 [facility] URINE PROTEIN 1+(30) mg/dL NEGATIVE H [facility] l URINE GLUCOSE (UA) NEGATIVE mg/dL NEGATIVE [facility] URINE KETONE NEGATIVE mg/dL NEGATIVE [facility] URINE UROBILINOGEN NORMAL(0.2-1) mg/dL 0-1 [facility] URINE BILIRUBIN NEGATIVE NEGATIVE [facility] URINE BLOOD NEGATIVE NEGATIVE [facility] ID Date Data Source [id number] 03/23/2019 05:54:00 PM EST [facility] TSYSORDER [id number] Name Value Range Interpretation Code Description Data Verito rce(s) Supporting Document(s) TROPONIN I < 0.017 ng/mL 0.0-0.056 [facility] ID Date Data Source [id number] 03/23/2019 12:00:00 PM EST [facility] l [...] rce(s) Supporting Document(s) ID Date Data Source [id number] 03/23/2019 11:13:00 AM EST [facility] TSYSORDER [id number] Name Value Range Interpretation Code Description Data Verito rce(s) Supporting Document(s) MAGNESIUM 1.9 mg/dL 1.8-2.4 [facility] ID Date Data Source [id number] 03/23/2019 11:13:00 AM EST [facility] TSYSORDER [id number] Name Value Range Interpretation Code Description Data Verito rce(s) Supporting Document(s) TROPONIN I < 0.017 ng/mL 0.0-0.056 [facility] ID Date Data Source [id number] 03/23/2019 11:13:00 AM EST [facility] TSYSORDER [id number] R [id number] Name Value Range Interpretation Code Description Data Verito rce(s) Supporting Document(s) GLUCOSE 173 mg/dL 74-106 H [facility] BLOOD UREA NITROGEN 25 mg/dL 7-18 H [facility] ital CREATININE 1.1 mg/dL 0.7-1.3 [facility] SODIUM 139 mmol/L 136-145 [facility] POTASSIUM 3.3 mmol/L 3.5-5.1 L [facility] CHLORIDE 99 mmol/L 98-107 [facility] CO2 33 mmol/L 21-32 H [facility] CALCIUM 9.2 mg/dL 8.5-10.1 [facility] ANION GAP 7.0 mmol/L 5-12 [facility] GLOMERULAR FILTRATION RATE 66 mL/min [facility] GFR IS CALCULATED IN mL/min/1.73m2 JAYJAY L FUNCTION: >90MILDLY DECREASED: 60-89MILDY TO MODERATELY DECREASED: 45-59 MODERATELY TO SEVERELY DECREASED: 30-44SEVERELY DECREASED: 15-29RENAL FAILURE: <15 AST 21 U/L 15-37 [facility] ALT 25 U/L 12-78 [facility] ALKALINE PHOSPHATASE 86 U/L 46-116 [facility] pital TOTAL BILIRUBIN 1.0 mg/dL 0.2-1.0 [facility] TOTAL PROTEIN 7.3 g/dl 6.4-8.2 [facility] ALBUMIN 3.6 gm/dL 3.4-5.0 [facility] ID Date Data Source [id number] 03/23/2019 11:12:00 AM [facility] Name Value Range Interpretation Code Description Data Verito rce(s) Supporting Document(s) DDIMER 0.58 mg/LFEU 0.19-0.80 [facility] ID Date Data Source [id number] 03/23/2019 11:12:00 AM [facility] Name Value Range Interpretation Code Description Data Verito rce(s) Supporting Document(s) PARTIAL THROMBOPLASTIN TIME 33.3 SECONDS 21.4-30.2 H [facility] ID Date Data Source [id number] 03/23/2019 11:12:00 AM [facility] Name Value Range Interpretation Code Description Data Verito rce(s) Supporting Document(s) PROTHROMBIN TIME (PATIENT) 27.7 SECONDS 9.2-11.6 H [facility] INR 2.74 0.87-1.06 H [facility] ID Date Data Source [id number] 03/23/2019 10:52:00 AM [facility] TSYSORDER [id number] Name Value Range Interpretation Code Description Data Verito rce(s) Supporting Document(s) WHITE BLOOD COUNT 7.9 K/mm3 4.0-10.0 [facility] al RED BLOOD COUNT 5.43 M/mm3 4.50-6.00 [facility] HEMOGLOBIN 14.5 gm/dL 14.0-18.0 [facility] HEMATOCRIT 44.9 % 42.0-54.0 [facility] MEAN CELL VOLUME 82.7 fl 80-96 [facility] MEAN CORPUSCULAR HEMOGLOBIN 26.7 pg 27.0-31.0 L [facility] MEAN CORPUSCULAR HGB CONC 32.3 g/dl 32.0-36.0 [facility] RED CELL DISTRIBUTION WIDTH 14.5 % 10.0-14.5 [facility] PLATELET COUNT 198 K/mm3 172-450 [facility] MEAN PLATELET VOLUME 11.8 fl 9.0-13.0 [facility] pital GRAN % 69.2 % 50-80.0 [facility] IG% 0.1 % 0.0-0.2 [facility] LYMPH % 16.8 % 25.0-50.0 L [facility] MONO % 9.0 % 2.0-10.0 [facility] EOS % 4.4 % 0-5.0 [facility] BASO % 0.5 % 0.0-2.0 [facility] GRAN # 5.5 K/mm3 2.0-8.00 [facility] IG# 0.0 K/mm3 0.0-0.2 [facility] LYMPH # 1.3 K/mm3 1.0-5.0 [facility] MONO # 0.7 K/mm3 0.10-1.20 [facility] EOS # 0.4 K/mm3 0.0-0.5 [facility] BASO # 0.0 K/mm3 0.0-0.2 [facility] Procedure Social History Code Duration Value Status Description Data Source(s ) Smoking 11/19/2019 12:00:00 AM EDT Former Smoker completed Former Smoker eCW1 ([facility]) Smoking 11/19/2019 12:00:00 AM EDT Former Smoker completed Former Smoker eCW1 ([facility]) Smoking 11/19/2019 12:00:00 AM EDT Former Smoker completed Former Smoker eCW1 ([facility]) Smoking 11/19/2019 12:00:00 AM EDT Former Smoker completed Former Smoker eCW1 ([facility]) Smoking 11/19/2019 12:00:00 AM EDT Former Smoker completed Former Smoker eCW1 ([facility]) Smoking 11/19/2019 12:00:00 AM EDT Former Smoker completed Former Smoker eCW1 ([facility]) Smoking 11/19/2019 12:00:00 AM EDT Former Smoker completed Former Smoker eCW1 ([facility]) Smoking 11/19/2019 12:00:00 AM EDT Former Smoker completed Former Smoker eCW1 ([facility]) Smoking 11/19/2019 12:00:00 AM EDT Former Smoker completed Former Smoker eCW1 ([facility]) Smoking 11/19/2019 12:00:00 AM EDT Former Smoker completed Former Smoker eCW1 ([facility]) Smoking 11/19/2019 12:00:00 AM EDT Former Smoker completed Former Smoker eCW1 ([facility]) Smoking 11/19/2019 12:00:00 AM EDT Former Smoker completed Former Smoker eCW1 ([facility]) Smoking 11/19/2019 12:00:00 AM EDT Former Smoker completed Former Smoker eCW1 ([facility]) Smoking 11/19/2019 12:00:00 AM EDT Former Smoker completed Former Smoker eCW1 ([facility]) Smoking 11/19/2019 12:00:00 AM EDT Former Smoker completed Former Smoker eCW1 ([facility]) Smoking 11/19/2019 12:00:00 AM EDT Former Smoker completed Former Smoker eCW1 ([facility]) Smoking 10/24/2019 12:00:00 AM EDT Former Smoker completed Former Smoker eCW1 ([facility]) Smoking 09/17/2019 12:00:00 AM EDT Former Smoker completed Former Smoker eCW1 ([facility]) Vital Signs ID Date Data Source UNK Name Value Range Interpretation Code Description Data Source(s) Diastolic blood pressure 98 mm[Hg] 98 mm[Hg] eCW1 ([facility]) Systolic blood pressure 171 mm[Hg] 171 mm[Hg] e CW1 ([facility]) Body temperature 97.7 [degF] 97.7 [degF] eCW1 ( [facility]) Heart rate 67 /min 67 /min eCW1 ([facility]) Body mass index (BMI) [Ratio] 29.32 kg/m2 29.32 kg/m2 eCW1 ([facility]) Body height 67.5 [in_i] 67.5 [in_i] eCW1 ([facility]) Body weight 190 [lb_av] 190 [lb_av] eCW1 ([facility]) Diastolic blood pressure 75 mm[Hg] 75 mm[Hg] eCW1 ([facility]) Systolic blood pressure 136 mm[Hg] 136 mm[Hg] e CW1 ([facility]) Body temperature 96.8 [degF] 96.8 [degF] eCW1 ( [facility]) Respiratory rate 18 /min 18 /min eCW1 ([facility]) Heart rate 83 /min 83 /min eCW1 ([facility]) Body mass index (BMI) [Ratio] 29.80 kg/m2 29.80 kg/m2 eCW1 ([facility]) Body height 67.5 [in_i] 67.5 [in_i] eCW1 ([facility]) Body weight 193.12 [lb_av] 193.12 [lb_av] eCW1 ([facility]) Diastolic blood pressure 82 mm[Hg] 82 mm[Hg] eCW1 ([facility]) Systolic blood pressure 122 mm[Hg] 122 mm[Hg] e CW1 ([facility]) Body temperature [degF] eCW1 ([facility]) Respiratory rate 18 /min 18 /min eCW1 ([facility]) Heart rate 72 /min 72 /min eCW1 ([facility]) Body mass index (BMI) [Ratio] 28.54 kg/m2 28.54 kg/m2 eCW1 ([facility]) Body height 67.5 [in_us] 67.5 [in_us] eCW1 (formerly [facility]) Body weight Measured 185 [lb_av] 185 [lb_av] eC W1 ([facility]) Diastolic blood pressure 79 mm[Hg] 79 mm[Hg] eCW1 ([facility]) Systolic blood pressure 132 mm[Hg] 132 mm[Hg] e CW1 ([facility]) Body temperature [degF] eCW1 ([facility]) Respiratory rate 18 /min 18 /min eCW1 ([facility]) Heart rate 76 /min 76 /min eCW1 ([facility]) Body mass index (BMI) [Ratio] 29.32 kg/m2 29.32 kg/m2 eCW1 ([facility]) Body height 67.5 [in_us] 67.5 [in_us] eCW1 (formerly [facility]) Body weight Measured 190 [lb_av] 190 [lb_av] eC W1 ([facility]) Patient Treatment Plan of Care Planned Activity Planned Date Details Description Data Source (s) Omeprazole 40 MG Delayed Release Oral Capsule 03/31/2020 12:00:00 A M EST eCW1 ([facility]) Omeprazole 40 MG Delayed Release Oral Capsule 03/31/2020 12:00:00 A M EST eCW1 ([facility]) Omeprazole 40 MG Delayed Release Oral Capsule 03/31/2020 12:00:00 A M EST eCW1 ([facility]) Omeprazole 40 MG Delayed Release Oral Capsule 03/31/2020 12:00:00 A M EST eCW1 ([facility]) Prednisone 10 MG Oral Tablet 10/24/2019 12:00:00 AM EDT eCW1 ([facility])
[2020-05-18] MEDS: COMBIVENT RESPIMAT 100-20MCG INHALER 4GM INH PRN (02:43)
[2020-05-18 03:56] VITALS: BP 149/87
--- NOTE | 2020-05-18 08:17 | ECGEPIP ---
[facility] - ED Test Date: 2020-05-18 Pat Name: ANA MAYO Department: Room: - Gender: Male Associate Financial Representative: : [phone] Requested By: ROJAS MONTEZ Order Number: [id number] Reading MD: Thaddeus Puentes Measurements Intervals [place] Rate: 91 P: GA: 0 QRS: 66 QRSD: 87 T: 73 QT: 390 QTc: 481 Interpretive Statements ATRIAL FIBRILLATION NSTTW ABNORMALITY(S) SIMILAR TO 05/06/20 Electronically Signed on 05-18-2020 8:17:04 EST by Thaddeus Puentes
== END 2020-05-18 04:25 | disposition home or self-care (01) ==
LOC: M ED 01:09
DX: J44.9 Chronic obstructive pulmonary disease, unspecified (principal); I48.91 Unspecified atrial fibrillation; I10 Essential (primary) hypertension; Z95.5 Presence of coronary angioplasty implant and graft; Z88.1 Allergy status to other antibiotic agents; Z88.2 Allergy status to sulfonamides; Z79.51 Long term (current) use of inhaled steroids; Z79.02 Long term (current) use of antithrombotics/antiplatelets; Z79.899 Other long term (current) drug therapy

== ENCOUNTER → 2020-08-31 | Outpatient (REF) | payer MEDICARE ==
[2020-08-31 16:49] LABS: HEMATOCRIT 45.5 % (42.0-52.0); HEMOGLOBIN 15.1 g/dl (13.5-17.5); MEAN CORPUSCULAR HEMOGLOBIN 28.9 pg (27.0-33.0); MEAN CORPUSCULAR HGB CONC 33.2 g/dl (32.0-36.5); MEAN CORPUSCULAR VOLUME 87.2 fl (80.0-96.0); PLATELET COUNT, AUTOMATED 207 10^3/uL (150-450); RED BLOOD COUNT 5.22 10^6/uL (4.30-6.10); WHITE BLOOD COUNT 7.6 10^3/uL (4.0-10.0)
[2020-08-31 16:55] LABS: ALBUMIN 3.5 GM/DL (3.2-5.2); ALT/SGPT 24 U/L (12-78); BILIRUBIN,TOTAL 1.5 MG/DL (0.2-1.0); BLOOD UREA NITROGEN 17 MG/DL (7-18); CALCIUM LEVEL 9.4 MG/DL (8.8-10.2); CARBON DIOXIDE LEVEL 38 MEQ/L (21-32); CHLORIDE LEVEL 95 MEQ/L (98-107); CHOLESTEROL LEVEL 143 MG/DL (<200); CREATININE FOR GFR 1.07 MG/DL (0.70-1.30); GLOMERULAR FILTRATION RATE > 60.0 (>42); GLUCOSE, FASTING 121 MG/DL (70-100); HDL CHOLESTEROL 44 MG/DL (>40); LDL CHOLESTEROL 62 MG/DL (<100); NON-HDL-C 99 MG/DL; SODIUM LEVEL 139 MEQ/L (136-145); TOTAL PROTEIN 6.4 GM/DL (6.4-8.2); TRIGLYCERIDES LEVEL 186 MG/DL (<150)
[2020-08-31 17:27] LABS: INR 2.62; PROTHROMBIN TIME 28.6 SECONDS (12.5-14.3)
[2020-08-31 17:36] LABS: TOTAL 25(OH) VITAMIN D 38.4 NG/ML (30.0-100.0)
== END ==
LOC: M SFHCCLAY 10:18
PROVIDERS: ATTEND Family Medicine
DX: K21.9 Gastro-esophageal reflux disease without esophagitis (principal); I10 Essential (primary) hypertension; E78.5 Hyperlipidemia, unspecified; I48.91 Unspecified atrial fibrillation; Z79.01 Long term (current) use of anticoagulants; Z13.21 Encounter for screening for nutritional disorder; Z79.899 Other long term (current) drug therapy

== ENCOUNTER → 2020-09-15 | Outpatient (REF) | payer MEDICARE ==
[2020-09-15 11:55] LABS: INR 2.38; PROTHROMBIN TIME 26.5 SECONDS (12.5-14.3)
== END ==
LOC: M SFHCCLAY 07:38
PROVIDERS: ATTEND Nurse Practitioner Family
DX: I48.91 Unspecified atrial fibrillation (principal); I10 Essential (primary) hypertension; Z79.01 Long term (current) use of anticoagulants

== ENCOUNTER → 2020-12-25 | Outpatient (CLI) | payer MEDICARE ==
[~2020-12-25] MED LIST changes: -ANOR1AER; +ANOR1AER INH; -ATOR40TA75; +ATOR40TA75 PO; -CHLO125TA; +CHLO125TA PO; -METO1TAB87; -PARO20TA3; +PARO20TA3 PO; -PROA1AER2; +PROA1AER2 INH; +WARF-18 PO; -WARF-23; +WARF-23 PO
== END ==
LOC: M LABSMTC 09:59
PROVIDERS: ATTEND Anesthesiology
DX: Z01.812 Encounter for preprocedural laboratory examination (principal); Z20.822 Contact with and (suspected) exposure to COVID-19

== ENCOUNTER → 2021-01-12 | Outpatient (CLI) | payer MEDICARE ==
[~2021-01-12] MED LIST changes: +ARNU1INH3 INH; +D31000TA2 PO; +NITR0.4S14 SL
== END ==
LOC: M LABSMTC 09:34
PROVIDERS: ATTEND Anesthesiology
DX: Z01.818 Encounter for other preprocedural examination (principal); Z20.822 Contact with and (suspected) exposure to COVID-19

== ENCOUNTER → 2021-01-14 | Outpatient (CLI) | payer MEDICARE ==
[~2021-01-14] MED LIST changes: -OMEP-221; +OMEP40CA5
== END ==
LOC: M RAD 10:10
PROVIDERS: ATTEND Physician Assistant
DX: Z87.891 Personal history of nicotine dependence (principal)

== ENCOUNTER 2021-01-17 12:06 | Day surgery (SDC) | payer MEDICARE ==
[~2021-01-17] VITALS: Ht 175.3 cm; Wt 85.0 kg
[~2021-01-17 12:06] MED LIST changes: +NS 1,000 ML IV ONE; +OMEP-221; -OMEP40CA5
[2021-01-17] MEDS ORDERED: propofoL 200 MG/20 ML VIAL As Ordered ONE (14:45)
[2021-01-17] MEDS ORDERED: LIDOCAINE 2% 100MG/5ML SDV (FOR ANES.) As Ordered ONE (14:45)
[2021-01-17] MEDS ORDERED: fentaNYL 100 MCG/2 ML INJECTION (J3010) As Ordered ONE (15:35)
--- NOTE | 2021-01-17 15:47 | ROOR ---
Patient Name: Kris Duarteymaryjo Procedure Date: 01/17/2021 3:32 PM Date of : 1945 Age: 75 Room: [facility] Gender: Male Note Status: Finalized Procedure: Upper GI endoscopy Indications: Dyspepsia, Eructation Providers: Taiwo Henriquez MD Referring MD: Hansa COLLADO DO Requesting Provider: Medicines: Monitored Anesthesia Care Complications: No immediate complications. Procedure: Pre-Anesthesia Assessment: - The heart rate, respiratory rate, oxygen saturations, blood pressure, adequacy of pulmonary ventilation, and response to care were monitored throughout the procedure. The Endoscope was introduced through the mouth, and advanced to the second part of duodenum. The upper GI endoscopy was accomplished without difficulty. The patient tolerated the procedure well. Findings: The Z-line was variable and was found 39 cm from the incisors. Biopsies were taken with a cold forceps for histology. Small Hiatal Hernia. The entire examined stomach was normal. Biopsies were taken with a cold forceps for Helicobacter pylori testing. The examined duodenum was normal. Biopsies were taken with a cold forceps for histology. Impression: - Z-line variable, 39 cm from the incisors. Biopsied. - Small Hiatal Hernia. - Normal stomach. Biopsied. - Normal examined duodenum. Biopsied. Recommendation: - Observe patient's clinical course. - Use Pepcid (famotidine) 20 mg PO BID. - (the script was sent to your pharmacy on file) Procedure Code(s): --- Professional --- 27194, Esophagogastroduodenoscopy, flexible, transoral; with biopsy, single or multiple Diagnosis Code(s): --- Professional --- R14.2, Eructation R10.13, Epigastric pain K22.8, Other specified diseases of esophagus CPT copyright 2019 [employer]. All rights reserved. The codes documented in this report are preliminary and upon wash crew person review may be revised to meet current compliance requirements. Taiwo Henriquez MD Taiwo Henriquez MD 01/17/2021 3:46:52 PM Electronically signed by Taiwo Henriquez MD Number of Addenda: 0 Note Initiated On: 01/17/2021 3:32 PM Estimated Blood Loss: Estimated blood loss: none.
--- NOTE | 2021-01-17 16:10 | ROOR ---
Patient Name: Kris Wise Procedure Date: 01/17/2021 3:33 PM Date of : 1945 Age: 75 Room: [facility] Gender: Male Note Status: Finalized Procedure: Colonoscopy Indications: Change in bowel habits Providers: Taiwo Henriquez MD Referring MD: Hansa COLLADO DO Requesting Provider: Medicines: Monitored Anesthesia Care Complications: No immediate complications. Procedure: Pre-Anesthesia Assessment: - The heart rate, respiratory rate, oxygen saturations, blood pressure, adequacy of pulmonary ventilation, and response to care were monitored throughout the procedure. The Colonoscope was introduced through the anus and advanced to the terminal ileum, with identification of the appendiceal orifice and IC valve. The colonoscopy was performed without difficulty. The patient tolerated the procedure well. The quality of the bowel preparation was good. Findings: The perianal and digital rectal examinations were normal. Five semi-sessile polyps were found in the sigmoid colon, splenic flexure and ascending colon. The polyps were 5 to 8 mm in size. These polyps were removed with a cold snare. Resection and retrieval were complete. Multiple medium-mouthed diverticula were found in the left colon and right colon. Small Internal Hemorrhoids. Biopsies for histology were taken with a cold forceps for evaluation of microscopic colitis. Impression: - Five 5 to 8 mm polyps in the sigmoid colon, at the splenic flexure and in the ascending colon, removed with a cold snare. Resected and retrieved. - Diverticulosis in the left colon and in the right colon. - Small Internal Hemorrhoids. - The colon examination was otherwise normal. - Biopsies were taken with a cold forceps for evaluation of microscopic colitis. Recommendation: - Use fiber, for example Citrucel, Fibercon, Konsyl or Metamucil. - Telephone endoscopist for pathology results in 2 weeks. - Resume Coumadin (warfarin) at prior dose today. Procedure Code(s): --- Professional --- 98254, Colonoscopy, flexible; with removal of tumor(s), polyp(s), or other lesion(s) by snare technique 54248, 59, Colonoscopy, flexible; with biopsy, single or multiple Diagnosis Code(s): --- Professional --- R19.4, Change in bowel habit K63.5, Polyp of colon K57.30, Diverticulosis of large intestine without perforation or abscess without bleeding CPT copyright 2019 [employer]. All rights reserved. The codes documented in this report are preliminary and upon nursing informatics analyst review may be revised to meet current compliance requirements. Taiwo Henriquez MD Taiwo Henriquez MD 01/17/2021 4:10:00 PM Electronically signed by Taiwo Henriquez MD Number of Addenda: 0 Note Initiated On: 01/17/2021 3:33 PM Estimated Blood Loss: Estimated blood loss: none.
[2021-01-17 16:41] VITALS: BP 131/78
== END 2021-01-17 16:45 | disposition home or self-care (01) ==
LOC: M OPP 12:06
PROVIDERS: ATTEND Internal Medicine Gastroenterology
DX: K57.30 Diverticulosis of large intestine without perforation or abscess without bleeding (principal); K63.5 Polyp of colon; K64.8 Other hemorrhoids; R19.4 Change in bowel habit; K44.9 Diaphragmatic hernia without obstruction or gangrene; R10.13 Epigastric pain; R14.2 Eructation; K22.8 Other specified diseases of esophagus; Z79.01 Long term (current) use of anticoagulants; Z79.899 Other long term (current) drug therapy; Z88.0 Allergy status to penicillin; Z88.2 Allergy status to sulfonamides; Z80.41 Family history of malignant neoplasm of ovary; Z95.5 Presence of coronary angioplasty implant and graft
CPT/HCPCS: 43239; 45380; 45385; 88305; J3010

== ENCOUNTER → 2021-05-02 | Outpatient (REF) | payer MEDICARE ==
[~2021-05-02] MED LIST changes: -NS 1,000 ML IV ONE
[2021-05-02 16:56] LABS: INR 2.23; PROTHROMBIN TIME 25.1 SECONDS (12.7-14.5)
== END ==
LOC: M SFHCCLAY 13:24
PROVIDERS: ATTEND Family Medicine
DX: I48.91 Unspecified atrial fibrillation (principal); Z79.01 Long term (current) use of anticoagulants

== ENCOUNTER → 2021-12-06 | Outpatient (REF) | payer MEDICARE ==
[~2021-12-06] MED LIST changes: -D31000TA2 PO; -OMEP-221; +OMEP40CA5; +VITA100093 PO
[2021-12-06 11:22] LABS: HEMATOCRIT 47.3 % (42.0-52.0); HEMOGLOBIN 15.4 g/dl (13.5-17.5); MEAN CORPUSCULAR HEMOGLOBIN 28.5 pg (27.0-33.0); MEAN CORPUSCULAR HGB CONC 32.6 g/dl (32.0-36.5); MEAN CORPUSCULAR VOLUME 87.4 fl (80.0-96.0); PLATELET COUNT, AUTOMATED 218 10^3/uL (150-450); RED BLOOD COUNT 5.41 10^6/uL (4.30-6.10); WHITE BLOOD COUNT 10.2 10^3/uL (4.0-10.0)
[2021-12-06 11:30] LABS: INR 2.79; PROTHROMBIN TIME 29.8 SECONDS (12.7-14.5)
[2021-12-06 12:08] LABS: ALBUMIN 3.4 GM/DL (3.2-5.2); ALT/SGPT 23 U/L (12-78); BILIRUBIN,TOTAL 1.3 MG/DL (0.2-1.0); BLOOD UREA NITROGEN 17 MG/DL (7-18); CARBON DIOXIDE LEVEL 34 MEQ/L (21-32); CHLORIDE LEVEL 99 MEQ/L (98-107); CHOLESTEROL LEVEL 135 MG/DL (<200); CHOLESTEROL RISK RATIO 3.292 (<5); CREATININE FOR GFR 1.08 MG/DL (0.70-1.30); FREE T4 0.93 NG/DL (0.76-1.46); GLOMERULAR FILTRATION RATE > 60.0 (>42); GLUCOSE, FASTING 108 MG/DL (70-100); HDL CHOLESTEROL 41 MG/DL (>40); LDL CHOLESTEROL 63 MG/DL (<100); NON-HDL-C 94 MG/DL; POTASSIUM SERUM 3.5 MEQ/L (3.5-5.1); SODIUM LEVEL 139 MEQ/L (136-145); TOTAL PROTEIN 6.8 GM/DL (6.4-8.2); TRIGLYCERIDES LEVEL 157 MG/DL (<150)
== END ==
LOC: M SFHCCLAY 08:58
PROVIDERS: ATTEND Nurse Practitioner Family
DX: I48.91 Unspecified atrial fibrillation (principal); I73.9 Peripheral vascular disease, unspecified; Z79.01 Long term (current) use of anticoagulants; Z79.899 Other long term (current) drug therapy

== ENCOUNTER → 2022-02-13 | Outpatient (CLI) | payer MEDICARE | LOC: M RAD 10:25 | PROVIDERS: ATTEND Physician Assistant | DX: R91.8 Other nonspecific abnormal finding of lung field (principal); Z87.891 Personal history of nicotine dependence ==

== ENCOUNTER → 2022-02-23 | Outpatient (CLI) | payer MEDICARE | LOC: M CARPUL 10:30 | PROVIDERS: ATTEND Physician Assistant | DX: J43.1 Panlobular emphysema (principal) ==

== ENCOUNTER 2022-03-05 13:42 | Emergency (ER) | payer MEDICARE ==
[~2022-03-05] VITALS: Ht 177.8 cm; Wt 90.8 kg
[2022-03-05 14:50] LABS: BASO # 0.1 10^3/uL (0.0-0.2); BASO % 0.6 % (0.0-1.0); EOS # 0.1 10^3/uL (0.0-0.5); EOS % 1.3 % (0.0-3.0); HEMATOCRIT 48.2 % (42.0-52.0); LYMPH # 1.3 10^3/uL (1.5-5.0); LYMPH % 12.2 % (24.0-44.0); MEAN CORPUSCULAR HEMOGLOBIN 28.8 pg (27.0-33.0); MEAN CORPUSCULAR HGB CONC 33.2 g/dl (32.0-36.5); MEAN CORPUSCULAR VOLUME 86.8 fl (80.0-96.0); MONO # 1.3 10^3/uL (0.0-0.8); MONO % 12.6 % (2.0-8.0); NEUTROPHILS # 7.8 10^3/uL (1.5-8.5); PLATELET COUNT, AUTOMATED 210 10^3/uL (150-450); RED BLOOD COUNT 5.55 10^6/uL (4.30-6.10); WHITE BLOOD COUNT 10.6 10^3/uL (4.0-10.0)
[2022-03-05 15:30] LABS: ALBUMIN 3.8 GM/DL (3.2-5.2); BILIRUBIN,DIRECT 0.5 MG/DL (0.0-0.2); BILIRUBIN,TOTAL 3.1 MG/DL (0.2-1.0); CALCIUM LEVEL 9.3 MG/DL (8.8-10.2); CREATININE FOR GFR 1.27 MG/DL (0.70-1.30); GLOMERULAR FILTRATION RATE 58.7 (>42); POTASSIUM SERUM 3.5 MEQ/L (3.5-5.1); TOTAL PROTEIN 7.7 GM/DL (6.4-8.2)
[2022-03-05 16:09] LABS: INR 2.47; PROTHROMBIN TIME 27.2 SECONDS (12.5-14.5)
[2022-03-05 16:30] VITALS: BP 152/73
[2022-03-05] MEDS ORDERED: PRED20TA PO (16:41)
[2022-03-05] MEDS ORDERED: BENZ-18 PO (16:41)
== END 2022-03-05 16:57 | disposition home or self-care (01) ==
LOC: M ED 13:42
DX: J44.1 Chronic obstructive pulmonary disease with (acute) exacerbation (principal); B97.4 Respiratory syncytial virus as the cause of diseases classified elsewhere; R94.31 Abnormal electrocardiogram [ECG] [EKG]; I48.91 Unspecified atrial fibrillation; I50.9 Heart failure, unspecified; I25.10 Atherosclerotic heart disease of native coronary artery without angina pectoris; I25.2 Old myocardial infarction; E78.9 Disorder of lipoprotein metabolism, unspecified; Z79.01 Long term (current) use of anticoagulants; Z79.899 Other long term (current) drug therapy; Z88.1 Allergy status to other antibiotic agents; Z88.2 Allergy status to sulfonamides; Z98.890 Other specified postprocedural states; Z87.891 Personal history of nicotine dependence; Z80.9 Family history of malignant neoplasm, unspecified

== ENCOUNTER 2022-03-10 13:56 | Inpatient (IN) | payer MEDICARE ==
[~2022-03-10] VITALS: Ht 170.2 cm; Wt 90.7 kg
[~2022-03-10 13:56] MED LIST changes: +BENZ-18 PO
[2022-03-10 15:04] LABS: VENOUS BASE EXCESS 11.1 (-2.0-2.0); VENOUS HCO3 39.3 MEQ/L (23.0-27.0); VENOUS O2 SATURATION 70.3 % (60.0-80.0); VENOUS PARTIAL PRESSURE O2 37.5 mmHg (30.0-50.0); VENOUS PH 7.393 UNITS (7.330-7.430); VENOUS TOTAL CO2 41.4 MEQ/L (24.0-28.0)
[2022-03-10 15:10] LABS: BASO % 0.2 % (0.0-1.0); EOS # 0.1 10^3/uL (0.0-0.5); EOS % 0.5 % (0.0-3.0); HEMATOCRIT 45.9 % (42.0-52.0); HEMOGLOBIN 15.1 g/dl (13.5-17.5); LYMPH # 2.1 10^3/uL (1.5-5.0); LYMPH % 14.9 % (24.0-44.0); MEAN CORPUSCULAR HEMOGLOBIN 28.7 pg (27.0-33.0); MEAN CORPUSCULAR HGB CONC 32.9 g/dl (32.0-36.5); MEAN CORPUSCULAR VOLUME 87.1 fl (80.0-96.0); MONO # 1.3 10^3/uL (0.0-0.8); MONO % 8.7 % (2.0-8.0); NEUTROPHILS # 10.8 10^3/uL (1.5-8.5); NEUTROPHILS % 75.4 % (36.0-66.0); PLATELET COUNT, AUTOMATED 204 10^3/uL (150-450); RED BLOOD COUNT 5.27 10^6/uL (4.30-6.10); WHITE BLOOD COUNT 14.3 10^3/uL (4.0-10.0)
[2022-03-10 15:59] LABS: CK-MB VALUE MASS 8.3 NG/ML (<3.6); MB/CK RELATIVE INDEX 8.06 (< OR =4)
[2022-03-10 16:09] LABS: ALBUMIN 3.1 GM/DL (3.2-5.2); ALT/SGPT 35 U/L (12-78); BILIRUBIN,DIRECT 0.4 MG/DL (0.0-0.2); BILIRUBIN,TOTAL 1.4 MG/DL (0.2-1.0); BLOOD UREA NITROGEN 23 MG/DL (7-18); CALCIUM LEVEL 9.2 MG/DL (8.8-10.2); CARBON DIOXIDE LEVEL 41 MEQ/L (21-32); CHLORIDE LEVEL 89 MEQ/L (98-107); CREATININE FOR GFR 1.21 MG/DL (0.70-1.30); GLOMERULAR FILTRATION RATE > 60.0 (>42); GLUCOSE, FASTING 124 MG/DL (70-100); NT-PRO BNP 1179 PG/ML (<450); POTASSIUM SERUM 2.7 MEQ/L (3.5-5.1); SODIUM LEVEL 134 MEQ/L (136-145); THYROID STIMULATING HORMONE 0.918 uIU/ML (0.358-3.740); THYROXINE (T4) 8.2 UG/DL (4.5-12.0); TOTAL PROTEIN 6.6 GM/DL (6.4-8.2)
[2022-03-10] MEDS ORDERED: WARFARIN SOD 5MG TAB PO SCH (17:00)
[2022-03-10] MEDS ORDERED: KCL 10MEQ/100ML SWI (KRUN) 10 MEQ in IV 1 EA IV ONE (17:35)
[2022-03-10] MEDS ORDERED: methylPREDNISolone 125MG 2ML VIAL IV ONE (17:35)
[2022-03-10] MEDS ORDERED: POTASSIUM CHLORIDE 10MEQ SR TABLET PO ONE ×2 (17:35→20:00)
[2022-03-10] MEDS ORDERED: cefTRIAXone SOD 1 GM in D5W MINI-BAG PLUS 50 ML IV ONE (17:40)
[2022-03-10] MEDS: IPRATROPIUM 0.5MG/ALBUTEROL 2.5MG INH SOL UD 3ML (DUONEB) NEB PRN ×3 (17:41→18:07)
[2022-03-10 19:54] LABS: MAGNESIUM LEVEL 1.9 MG/DL (1.8-2.4)
[2022-03-10] MEDS ORDERED: MOM 30ML SUSPENSION UDC PO PRN (20:00)
[2022-03-10] MEDS ORDERED: FLUT1BLS8 PO (20:10)
[2022-03-10] MEDS ORDERED: HOME MED LIST COMPLETE! XX SCH (20:10)
[2022-03-10] MEDS ORDERED: PARO30TA65 PO (20:10)
[2022-03-10 20:13] LABS: RSV AMPLIFICATION NEGATIVE (NEGATIVE)
[2022-03-10] MEDS: KCL 10MEQ/100ML SWI (KRUN) 10 MEQ in IV 1 EA IV SCH ×2 (21:21→23:03)
[2022-03-10] MEDS: METOPROLOL TART 25 MG TABLET PO SCH (21:23)
[2022-03-10] MEDS: IPRATROPIUM 0.5MG/ALBUTEROL 2.5MG INH SOL UD 3ML (DUONEB) NEB SCH (21:28)
[2022-03-10] MEDS: ATORVASTATIN 20 MG TAB PO SCH (21:30)
[2022-03-10] MEDS: DOCUSATE SODIUM 100MG CAPSULE PO SCH (21:30)
[2022-03-10 22:19] VITALS: O2SAT 84
[2022-03-10 22:34] LABS: INR 3.38; PROTHROMBIN TIME 34.7 SECONDS (12.5-14.5)
[2022-03-11] MEDS: IPRATROPIUM 0.5MG/ALBUTEROL 2.5MG INH SOL UD 3ML (DUONEB) NEB SCH ×4 (01:38→19:20)
[2022-03-11] MEDS: KCL 10MEQ/100ML SWI (KRUN) 10 MEQ in IV 1 EA IV SCH (01:47)
[2022-03-11 06:52] LABS: HEMOGLOBIN 14.8 g/dl (13.5-17.5); MEAN CORPUSCULAR HEMOGLOBIN 28.6 pg (27.0-33.0); MEAN CORPUSCULAR HGB CONC 32.9 g/dl (32.0-36.5); PLATELET COUNT, AUTOMATED 210 10^3/uL (150-450); RED BLOOD COUNT 5.17 10^6/uL (4.30-6.10); WHITE BLOOD COUNT 16.4 10^3/uL (4.0-10.0)
[2022-03-11 07:36] LABS: ALBUMIN 3.3 GM/DL (3.2-5.2); ALT/SGPT 32 U/L (12-78); BILIRUBIN,TOTAL 1.5 MG/DL (0.2-1.0); BLOOD UREA NITROGEN 20 MG/DL (7-18); CALCIUM LEVEL 8.9 MG/DL (8.8-10.2); CARBON DIOXIDE LEVEL 35 MEQ/L (21-32); CHLORIDE LEVEL 89 MEQ/L (98-107); GLOMERULAR FILTRATION RATE > 60.0 (>42); GLUCOSE, FASTING 161 MG/DL (70-100); MAGNESIUM LEVEL 1.9 MG/DL (1.8-2.4); POTASSIUM SERUM 3.9 MEQ/L (3.5-5.1); SODIUM LEVEL 131 MEQ/L (136-145); TOTAL PROTEIN 6.7 GM/DL (6.4-8.2)
[2022-03-11] MEDS: SYMBICORT 160/4.5MCG INHALER 6GM INH SCH ×2 (08:07→19:21)
[2022-03-11 08:58] VITALS: BP 176/71
[2022-03-11] MEDS: predniSONE 20 MG TAB PO SCH (09:00)
[2022-03-11] MEDS: DOCUSATE SODIUM 100MG CAPSULE PO SCH ×2 (09:00→22:11)
[2022-03-11] MEDS: METOPROLOL TART 25 MG TABLET PO SCH ×2 (09:01→22:15)
[2022-03-11] MEDS: PARoxetine 10MG TABLET PO SCH (09:01)
[2022-03-11] MEDS: CHLORTHALIDONE 25 MG TAB PO SCH (09:55)
[2022-03-11 14:00] VITALS: BP 152/82
[2022-03-11] MEDS ORDERED: NITROGLYCERIN 0.4 MG SUBL TABLET SL PRN (14:30)
[2022-03-11] MEDS: VITAMIN D 1,000 INTERNATIONAL UNITS TABLET PO SCH (15:54)
[2022-03-11 16:17] VITALS: BP 172/63
[2022-03-11] MEDS ORDERED: WARFARIN SOD 2.5MG TAB PO SCH (17:00)
[2022-03-11 18:12] LABS: CREATININE,RANDOM URINE 51.2 MG/DL
[2022-03-11 20:40] VITALS: BP 143/75
[2022-03-11] MEDS: ATORVASTATIN 20 MG TAB PO SCH (22:11)
[2022-03-12] MEDS: IPRATROPIUM 0.5MG/ALBUTEROL 2.5MG INH SOL UD 3ML (DUONEB) NEB SCH ×3 (00:55→13:24)
[2022-03-12 06:00] VITALS: BP 148/89
[2022-03-12 06:04] LABS: HEMATOCRIT 40.4 % (42.0-52.0); HEMOGLOBIN 13.7 g/dl (13.5-17.5); MEAN CORPUSCULAR HEMOGLOBIN 29.3 pg (27.0-33.0); MEAN CORPUSCULAR HGB CONC 33.9 g/dl (32.0-36.5); MEAN CORPUSCULAR VOLUME 86.3 fl (80.0-96.0); PLATELET COUNT, AUTOMATED 206 10^3/uL (150-450); RED BLOOD COUNT 4.68 10^6/uL (4.30-6.10); WHITE BLOOD COUNT 15.5 10^3/uL (4.0-10.0)
[2022-03-12 06:19] LABS: INR 3.88; PROTHROMBIN TIME 38.7 SECONDS (12.5-14.5)
[2022-03-12 06:32] LABS: ALT/SGPT 31 U/L (12-78); BILIRUBIN,TOTAL 1.2 MG/DL (0.2-1.0); BLOOD UREA NITROGEN 22 MG/DL (7-18); CALCIUM LEVEL 8.7 MG/DL (8.8-10.2); CARBON DIOXIDE LEVEL 38 MEQ/L (21-32); CHLORIDE LEVEL 90 MEQ/L (98-107); GLOMERULAR FILTRATION RATE > 60.0 (>42); GLUCOSE, FASTING 114 MG/DL (70-100); POTASSIUM SERUM 3.2 MEQ/L (3.5-5.1); SODIUM LEVEL 135 MEQ/L (136-145); TOTAL PROTEIN 5.9 GM/DL (6.4-8.2)
[2022-03-12] MEDS: SYMBICORT 160/4.5MCG INHALER 6GM INH SCH (07:42)
[2022-03-12] MEDS ORDERED: DOXYCYCLINE HYCLATE 100MG TABLET PO SCH (09:00)
[2022-03-12] MEDS ORDERED: POTASSIUM CHLORIDE 10MEQ SR TABLET PO SCH (09:00)
[2022-03-12] MEDS ORDERED: AZITHROMYCIN 250MG TABLET PO SCH (09:00)
[2022-03-12 09:25] VITALS: BP 148/89
[2022-03-12] MEDS: METOPROLOL TART 25 MG TABLET PO SCH (09:25)
[2022-03-12] MEDS: DOCUSATE SODIUM 100MG CAPSULE PO SCH (09:25)
[2022-03-12] MEDS: predniSONE 20 MG TAB PO SCH (09:25)
[2022-03-12] MEDS: VITAMIN D 1,000 INTERNATIONAL UNITS TABLET PO SCH (09:25)
[2022-03-12] MEDS: CHLORTHALIDONE 25 MG TAB PO SCH (09:25)
[2022-03-12] MEDS: PARoxetine 10MG TABLET PO SCH (09:26)
[2022-03-12] MEDS ORDERED: POTASSIUM CHLORIDE 10MEQ SR TABLET PO ONE (12:10)
[2022-03-12 12:59] LABS: INR 3.38; PROTHROMBIN TIME 34.7 SECONDS (12.5-14.5)
[2022-03-12] MEDS ORDERED: DOXY100T PO (13:15)
[2022-03-12] MEDS ORDERED: PRED20TA PO (13:15)
[2022-03-12 14:00] VITALS: BP 126/81
== END 2022-03-12 16:12 | disposition home or self-care (01) | DRG 191 ==
LOC: M ED 13:56 → M ED INP 19:58 → M MSPAV 03-11 16:12
PROVIDERS: ADMIT Family Medicine; ATTEND Family Medicine
DX: J44.1 Chronic obstructive pulmonary disease with (acute) exacerbation (principal); E87.20 Acidosis, unspecified; E87.1 Hypo-osmolality and hyponatremia; D68.9 Coagulation defect, unspecified; I25.10 Atherosclerotic heart disease of native coronary artery without angina pectoris; I48.91 Unspecified atrial fibrillation; Z79.01 Long term (current) use of anticoagulants; Z95.5 Presence of coronary angioplasty implant and graft; Z96.641 Presence of right artificial hip joint; Z87.891 Personal history of nicotine dependence; D72.829 Elevated white blood cell count, unspecified; E87.6 Hypokalemia; I10 Essential (primary) hypertension; Z79.52 Long term (current) use of systemic steroids; Z79.899 Other long term (current) drug therapy; Z88.1 Allergy status to other antibiotic agents; Z88.2 Allergy status to sulfonamides; F32.A Depression, unspecified; E55.9 Vitamin D deficiency, unspecified; Z20.822 Contact with and (suspected) exposure to COVID-19; B97.4 Respiratory syncytial virus as the cause of diseases classified elsewhere

== ENCOUNTER → 2022-04-03 | Outpatient (CLI) | payer MEDICARE ==
[~2022-04-03] MED LIST changes: +DOXY100T PO; +FLUT1BLS8 PO; +PARO30TA65 PO
== END ==
LOC: M PLARAD 08:32
PROVIDERS: ATTEND Physician Assistant
DX: R91.1 Solitary pulmonary nodule (principal)
CPT/HCPCS: 78815; A9552

== ENCOUNTER → 2022-04-05 | Outpatient (CLI) | payer MEDICARE | LOC: M CLY 13:40 | PROVIDERS: ATTEND Nurse Practitioner Family | DX: M25.522 Pain in left elbow (principal) ==

== ENCOUNTER → 2022-09-12 | Outpatient (CLI) | payer MEDICARE ==
[~2022-09-12] MED LIST changes: +ALBU2.5V10 INH; +ALBU8.5H INH; +ATOR80TA59 PO; +FLOM0.4C39 PO; +FLUT1BLS8 INH; -FLUT1BLS8 PO
== END ==
LOC: M CLY 10:03
PROVIDERS: ATTEND Nurse Practitioner Family
DX: Z01.818 Encounter for other preprocedural examination (principal); I48.91 Unspecified atrial fibrillation

== ENCOUNTER → 2022-09-12 | Outpatient (REF) | payer MEDICARE ==
[~2022-09-12] MED LIST changes: -ALBU2.5V10 INH; -ALBU8.5H INH; -ATOR80TA59 PO; -FLOM0.4C39 PO; -FLUT1BLS8 INH; +FLUT1BLS8 PO
[2022-09-12 12:24] LABS: INR 2.09; PROTHROMBIN TIME 23.8 SECONDS (12.5-14.5)
[2022-09-12 17:30] LABS: BASO # 0.1 10^3/uL (0.0-0.2); BASO % 0.6 % (0.0-1.0); EOS # 0.3 10^3/uL (0.0-0.5); EOS % 2.6 % (0.0-3.0); HEMATOCRIT 47.7 % (42.0-52.0); HEMOGLOBIN 15.5 g/dl (13.5-17.5); LYMPH # 1.9 10^3/uL (1.5-5.0); LYMPH % 17.5 % (24.0-44.0); MEAN CORPUSCULAR HEMOGLOBIN 28.2 pg (27.0-33.0); MEAN CORPUSCULAR HGB CONC 32.5 g/dl (32.0-36.5); MEAN CORPUSCULAR VOLUME 86.9 fl (80.0-96.0); NEUTROPHILS # 7.7 10^3/uL (1.5-8.5); PLATELET COUNT, AUTOMATED 217 10^3/uL (150-450); RED BLOOD COUNT 5.49 10^6/uL (4.30-6.10)
[2022-09-12 17:59] LABS: ALBUMIN 3.8 G/DL (3.2-5.2); BILIRUBIN,TOTAL 2.3 MG/DL (0.3-1.2); CALCIUM LEVEL 9.3 MG/DL (8.3-10.6); CHOLESTEROL RISK RATIO 3.72 (<5); CREATININE FOR GFR 1.29 MG/DL (0.70-1.30); GLOMERULAR FILTRATION RATE 57.6 (>42); HDL CHOLESTEROL 33.6 MG/DL (>40); NON-HDL-C 91.4 MG/DL; POTASSIUM SERUM 3.3 MMOL/L (3.5-5.1); TOTAL PROTEIN 6.5 G/DL (5.7-8.2)
== END ==
LOC: M SFHCCLAY 09:48
PROVIDERS: ATTEND Nurse Practitioner Family
DX: I48.91 Unspecified atrial fibrillation (principal); J44.9 Chronic obstructive pulmonary disease, unspecified; E78.5 Hyperlipidemia, unspecified

== ENCOUNTER 2022-09-24 00:37 | Emergency (ER) | payer MEDICARE ==
[~2022-09-24] VITALS: Ht 171.4 cm; Wt 87.1 kg
[~2022-09-24 00:37] MED LIST changes: +FLUT1BLS8 INH; -FLUT1BLS8 PO
[2022-09-24 01:35] LABS: BASO % 0.3 % (0.0-1.0); EOS # 0.2 10^3/uL (0.0-0.5); HEMATOCRIT 36.1 % (42.0-52.0); MEAN CORPUSCULAR HEMOGLOBIN 28.9 pg (27.0-33.0); MEAN CORPUSCULAR HGB CONC 33.2 g/dl (32.0-36.5); MONO # 0.9 10^3/uL (0.0-0.8); MONO % 9.7 % (2.0-8.0); NEUTROPHILS # 7.6 10^3/uL (1.5-8.5); NEUTROPHILS % 77.6 % (36.0-66.0); PLATELET COUNT, AUTOMATED 160 10^3/uL (150-450); RED BLOOD COUNT 4.15 10^6/uL (4.30-6.10); WHITE BLOOD COUNT 9.7 10^3/uL (4.0-10.0)
[2022-09-24 01:48] LABS: INR 1.35; PROTHROMBIN TIME 16.9 SECONDS (12.5-14.5)
[2022-09-24 01:49] LABS: PARTIAL THROMBOPLASTIN TIME 36.4 SECONDS (24.8-34.2)
[2022-09-24 02:04] LABS: BLOOD UREA NITROGEN 22 MG/DL (9-23); CALCIUM LEVEL 8.4 MG/DL (8.3-10.6); CARBON DIOXIDE LEVEL 33 MMOL/L (20-31); CHLORIDE LEVEL 100 MMOL/L (98-107); CREATININE FOR GFR 1.02 MG/DL (0.70-1.30); GLOMERULAR FILTRATION RATE > 60.0 (>42); GLUCOSE, FASTING 127 MG/DL (74-106); POTASSIUM SERUM 3.2 MMOL/L (3.5-5.1); SODIUM LEVEL 138 MMOL/L (136-145)
[2022-09-24 02:13] VITALS: BP 155/72
[2022-09-29] MEDS ORDERED: IPRA2IN INH (04:57)
[2022-09-29] MEDS ORDERED: ALBU2.5V10 INH (04:57)
[2022-09-29] MEDS ORDERED: ALBU8.5H INH (04:57)
[2022-09-29] MEDS ORDERED: ATOR80TA59 PO (04:57)
[2022-09-29] MEDS ORDERED: FLOM0.4C39 PO (04:57)
== END 2022-09-24 07:12 | disposition home or self-care (01) ==
LOC: M ED 00:37
DX: R31.9 Hematuria, unspecified (principal); I48.91 Unspecified atrial fibrillation; I50.20 Unspecified systolic (congestive) heart failure; I10 Essential (primary) hypertension; J44.9 Chronic obstructive pulmonary disease, unspecified; I25.10 Atherosclerotic heart disease of native coronary artery without angina pectoris; Z88.2 Allergy status to sulfonamides; Z88.1 Allergy status to other antibiotic agents; Z79.01 Long term (current) use of anticoagulants; Z79.899 Other long term (current) drug therapy; Z79.52 Long term (current) use of systemic steroids

== ENCOUNTER → 2022-11-23 | Outpatient (REF) | payer MEDICARE ==
[~2022-11-23] MED LIST changes: +ALBU2.5V10 INH; +ALBU8.5H INH; +ATOR80TA59 PO; +CLOP75TA99 PO; +FLOM0.4C39 PO; +JANT2.5T PO; +JANT5TAB PO; +OXYB5TAB10 PO; +WARF4TAB51 PO
== END ==
LOC: M SFHCCLAY 11:55
PROVIDERS: ATTEND Nurse Practitioner Family
DX: I48.91 Unspecified atrial fibrillation (principal); R05.1 Acute cough; Z79.01 Long term (current) use of anticoagulants

== ENCOUNTER → 2022-11-27 | Outpatient (CLI) | payer MEDICARE | LOC: M RAD 08:27 | PROVIDERS: ATTEND Internal Medicine Pulmonary Disease | DX: I25.10 Atherosclerotic heart disease of native coronary artery without angina pectoris (principal); R91.8 Other nonspecific abnormal finding of lung field ==

== ENCOUNTER → 2023-03-19 | Outpatient (CLI) | payer MEDICARE ==
[~2023-03-19] MED LIST changes: -OXYB5TAB10 PO; +OXYB5TAB11 PO
== END ==
LOC: M RAD 07:29
PROVIDERS: ATTEND Internal Medicine Pulmonary Disease
DX: R91.8 Other nonspecific abnormal finding of lung field (principal); R91.1 Solitary pulmonary nodule; J47.9 Bronchiectasis, uncomplicated

== ENCOUNTER → 2023-06-14 | Outpatient (REF) | payer MEDICARE ==
[~2023-06-14] MED LIST changes: -OXYB5TAB11 PO; +OXYB5TAB14 PO
[2023-06-15 13:20] LABS: RSV AMPLIFICATION NEGATIVE (NEGATIVE)
== END ==
LOC: M SFHCCLAY 11:42
PROVIDERS: ATTEND Physician Assistant
DX: B34.9 Viral infection, unspecified (principal)

== ENCOUNTER → 2023-10-01 | Outpatient (CLI) | payer MEDICARE | LOC: M RAD 10:55 | PROVIDERS: ATTEND Surgery | DX: I65.23 Occlusion and stenosis of bilateral carotid arteries (principal) ==

== ENCOUNTER → 2023-10-30 | Outpatient (REF) | payer MEDICARE ==
[2023-10-30 11:51] LABS: BASO % 0.5 % (0.0-1.0); EOS # 0.3 10^3/uL (0.0-0.5); EOS % 3.7 % (0.0-3.0); HEMATOCRIT 39.8 % (42.0-52.0); HEMOGLOBIN 13.5 g/dl (13.5-17.5); LYMPH % 26.4 % (24.0-44.0); MEAN CORPUSCULAR HEMOGLOBIN 29.8 pg (27.0-33.0); MEAN CORPUSCULAR HGB CONC 33.9 g/dl (32.0-36.5); MEAN CORPUSCULAR VOLUME 87.9 fl (80.0-96.0); MONO # 0.7 10^3/uL (0.0-0.8); MONO % 8.6 % (2.0-8.0); NEUTROPHILS # 4.6 10^3/uL (1.5-8.5); NEUTROPHILS % 60.5 % (36.0-66.0); PLATELET COUNT, AUTOMATED 174 10^3/uL (150-450); RED BLOOD COUNT 4.53 10^6/uL (4.30-6.10); WHITE BLOOD COUNT 7.7 10^3/uL (4.0-10.0)
[2023-10-30 12:40] LABS: ALBUMIN 3.6 G/DL (3.2-5.2); ALKALINE PHOSPHATASE 77 U/L (46-116); ALT/SGPT 23 U/L (7.0-40); AST/SGOT 20 U/L (<34); BILIRUBIN,TOTAL 1.7 MG/DL (0.3-1.2); BLOOD UREA NITROGEN 23 MG/DL (9-23); CARBON DIOXIDE LEVEL 37 MMOL/L (20-31); CHLORIDE LEVEL 100 MMOL/L (98-107); CHOLESTEROL LEVEL 140 MG/DL (<200); CHOLESTEROL RISK RATIO 3.82 (<5); CREATININE FOR GFR 1.13 MG/DL (0.70-1.30); GLOMERULAR FILTRATION RATE > 60.0 (>42); GLUCOSE, FASTING 107 MG/DL (74-106); HDL CHOLESTEROL 36.6 MG/DL (>40); LDL CHOLESTEROL 84.4 MG/DL (<100); MAGNESIUM LEVEL 1.6 MG/DL (1.8-2.4); NON-HDL-C 103.4 MG/DL; POTASSIUM SERUM 3.6 MMOL/L (3.5-5.1); SODIUM LEVEL 140 MMOL/L (136-145); TOTAL PROTEIN 5.9 G/DL (5.7-8.2); TRIGLYCERIDES LEVEL 95 MG/DL (<150)
== END ==
LOC: M SFHCCLAY 08:58
PROVIDERS: ATTEND Nurse Practitioner Family
DX: I48.91 Unspecified atrial fibrillation (principal); Z79.01 Long term (current) use of anticoagulants; N40.0 Benign prostatic hyperplasia without lower urinary tract symptoms; R25.2 Cramp and spasm; Z79.899 Other long term (current) drug therapy

== ENCOUNTER → 2023-11-05 | Outpatient (CLI) | payer MEDICARE | LOC: M PLAIMG 09:27 | PROVIDERS: ATTEND Physician Assistant | DX: R91.8 Other nonspecific abnormal finding of lung field (principal); R91.1 Solitary pulmonary nodule ==

== ENCOUNTER → 2024-01-28 | Outpatient (REF) | payer MEDICARE | LOC: M SFHCCLAY 16:38 | PROVIDERS: ATTEND Nurse Practitioner Family | DX: J44.1 Chronic obstructive pulmonary disease with (acute) exacerbation (principal) ==

== ENCOUNTER → 2024-03-21 | Outpatient (CLI) | payer MEDICARE | LOC: M CLY 14:29 | PROVIDERS: ATTEND Nurse Practitioner Family | DX: M25.531 Pain in right wrist (principal) ==

== ENCOUNTER → 2024-03-24 | Outpatient (CLI) | payer MEDICARE | LOC: M RAD 13:02 | PROVIDERS: ATTEND Nurse Practitioner Family | DX: K40.90 Unilateral inguinal hernia, without obstruction or gangrene, not specified as recurrent (principal) ==

== ENCOUNTER → 2024-04-04 | Outpatient (REF) | payer MEDICARE ==
[2024-04-04 18:04] LABS: BASO # 0.1 10^3/uL (0.0-0.2); BASO % 0.7 % (0.0-1.0); EOS # 0.2 10^3/uL (0.0-0.5); EOS % 2.4 % (0.0-3.0); HEMATOCRIT 42.9 % (42.0-52.0); HEMOGLOBIN 14.2 g/dl (13.5-17.5); LYMPH # 1.7 10^3/uL (1.5-5.0); LYMPH % 16.2 % (24.0-44.0); MEAN CORPUSCULAR HGB CONC 33.1 g/dl (32.0-36.5); MEAN CORPUSCULAR VOLUME 90.5 fl (80.0-96.0); MONO # 1.2 10^3/uL (0.0-0.8); MONO % 11.4 % (2.0-8.0); NEUTROPHILS % 68.9 % (36.0-66.0); PLATELET COUNT, AUTOMATED 194 10^3/uL (150-450); RED BLOOD COUNT 4.74 10^6/uL (4.30-6.10); WHITE BLOOD COUNT 10.2 10^3/uL (4.0-10.0)
[2024-04-04 18:17] LABS: HEMOGLOBIN A1c 5.8 % (4.0-6.0)
[2024-04-04 18:32] LABS: THYROID STIMULATING HORMONE 3.145 uIU/ML (0.55-4.78)
[2024-04-04 18:41] LABS: ALBUMIN 3.3 G/DL (3.2-5.2); ALKALINE PHOSPHATASE 74 U/L (40-129); ALT/SGPT 29 U/L (7.0-40); AST/SGOT 23 U/L (<34); BILIRUBIN,TOTAL 2.6 MG/DL (0.3-1.2); BLOOD UREA NITROGEN 21 MG/DL (9-23); CALCIUM LEVEL 9.4 MG/DL (8.3-10.6); CARBON DIOXIDE LEVEL 37 MMOL/L (20-31); CHLORIDE LEVEL 100 MMOL/L (98-107); CHOLESTEROL LEVEL 118 MG/DL (<200); CHOLESTEROL RISK RATIO 2.63 (<5); GLOMERULAR FILTRATION RATE > 60.0 (>42); GLUCOSE, FASTING 88 MG/DL (74-106); HDL CHOLESTEROL 44.8 MG/DL (>40); LDL CHOLESTEROL 54.8 MG/DL (<100); NON-HDL-C 73.2 MG/DL; POTASSIUM SERUM 3.9 MMOL/L (3.5-5.1); SODIUM LEVEL 142 MMOL/L (136-145); TOTAL PROTEIN 6.1 G/DL (5.7-8.2); TRIGLYCERIDES LEVEL 92 MG/DL (<150)
== END ==
LOC: M SFHCCLAY 09:44
PROVIDERS: ATTEND Physician Assistant
DX: I50.9 Heart failure, unspecified (principal); J44.9 Chronic obstructive pulmonary disease, unspecified; I48.91 Unspecified atrial fibrillation; Z79.01 Long term (current) use of anticoagulants; Z86.73 Personal history of transient ischemic attack (TIA), and cerebral infarction without residual deficits; E78.5 Hyperlipidemia, unspecified; I73.9 Peripheral vascular disease, unspecified; I25.119 Atherosclerotic heart disease of native coronary artery with unspecified angina pectoris; R06.09 Other forms of dyspnea; Z79.899 Other long term (current) drug therapy

== ENCOUNTER → 2024-04-04 | Outpatient (CLI) | payer MEDICARE | LOC: M CLY 09:12 | PROVIDERS: ATTEND Physician Assistant | DX: R06.09 Other forms of dyspnea (principal) ==

== ENCOUNTER → 2024-04-17 | Outpatient (CLI) | payer MEDICARE | LOC: M PLAIMG 09:50 | PROVIDERS: ATTEND Nurse Practitioner Family | DX: K40.30 Unilateral inguinal hernia, with obstruction, without gangrene, not specified as recurrent (principal) ==

== ENCOUNTER → 2024-07-03 | Outpatient (REF) | payer MEDICARE | LOC: M SFHCCLAY 08:34 | PROVIDERS: ATTEND Physician Assistant | DX: R05.1 Acute cough (principal) ==

== ENCOUNTER → 2024-07-21 | Outpatient (REF) | payer MEDICARE ==
[2024-07-21 17:21] LABS: INR 2.52; PROTHROMBIN TIME 27.2 SECONDS (12.5-14.5)
== END ==
LOC: M SFHCCLAY 10:14
PROVIDERS: ATTEND Nurse Practitioner Family
DX: I48.91 Unspecified atrial fibrillation (principal)

== ENCOUNTER → 2024-07-23 | Outpatient (CLI) | payer MEDICARE | LOC: M SOG 07:57 | PROVIDERS: ATTEND Physician Assistant | DX: M19.041 Primary osteoarthritis, right hand (principal) ==

== ENCOUNTER → 2024-09-04 | Outpatient (REF) | payer MEDICARE ==
[~2024-09-04] MED LIST changes: -FLOM0.4C39 PO; +TAMS-18 PO
== END ==
LOC: M SFHCCLAY 07:06
PROVIDERS: ATTEND Physician Assistant
DX: R05.1 Acute cough (principal)

== ENCOUNTER → 2024-09-09 | Outpatient (CLI) | payer MEDICARE ==
[~2024-09-09] MED LIST changes: +AMOX875T2 PO; +AZIT500T5 PO; +BUDE10.7 PO; +CEFD1CAP9 PO; +EZET10TA21 PO; +FINA5TAB2 PO; +NORV5TAB PO; +PRED10TA2 PO
== END ==
LOC: M CLY 13:12
PROVIDERS: ATTEND Nurse Practitioner Family
DX: J44.1 Chronic obstructive pulmonary disease with (acute) exacerbation (principal)

== ENCOUNTER 2024-09-10 05:45 | Observation (INO) | payer MEDICARE ==
[~2024-09-10] VITALS: Ht 175.3 cm; Wt 83.5 kg
[~2024-09-10 05:45] MED LIST changes: -AMOX875T2 PO; -AZIT500T5 PO; -BUDE10.7 PO; -CEFD1CAP9 PO; -EZET10TA21 PO; -FINA5TAB2 PO; -NORV5TAB PO; -PRED10TA2 PO
[2024-09-10 06:14] LABS: VENOUS BASE EXCESS 9.6 (-2.0-2.0); VENOUS HCO3 38.2 MMOL/L (23.0-27.0); VENOUS O2 SATURATION 39.8 % (60.0-80.0); VENOUS PARTIAL PRESSURE CO2 71.5 mmHg (38.0-50.0); VENOUS PH 7.346 UNITS (7.330-7.430); VENOUS STANDARD HCO3 31.8 MMOL/L; VENOUS TOTAL CO2 40.4 MMOL/L (24.0-28.0)
[2024-09-10 06:20] LABS: BASO # 0.1 10^3/uL (0.0-0.2); BASO % 0.5 % (0.0-1.0); EOS # 0.5 10^3/uL (0.0-0.5); EOS % 3.9 % (0.0-3.0); HEMATOCRIT 39.2 % (42.0-52.0); HEMOGLOBIN 13.3 g/dl (13.5-17.5); LYMPH # 1.3 10^3/uL (1.5-5.0); LYMPH % 10.5 % (24.0-44.0); MEAN CORPUSCULAR HEMOGLOBIN 29.8 pg (27.0-33.0); MEAN CORPUSCULAR HGB CONC 33.9 g/dl (32.0-36.5); MEAN CORPUSCULAR VOLUME 87.7 fl (80.0-96.0); MONO # 1.2 10^3/uL (0.0-0.8); MONO % 9.8 % (2.0-8.0); NEUTROPHILS # 9.2 10^3/uL (1.5-8.5); NEUTROPHILS % 74.1 % (36.0-66.0); PLATELET COUNT, AUTOMATED 235 10^3/uL (150-450); RED BLOOD COUNT 4.47 10^6/uL (4.30-6.10); WHITE BLOOD COUNT 12.4 10^3/uL (4.0-10.0)
[2024-09-10 06:49] LABS: CPK CREATINE PHOSPHOKINASE 61 U/L (46-171); MB/CK RELATIVE INDEX 6.55 (< OR =4)
[2024-09-10 06:51] LABS: THYROXINE (T4) 6.3 UG/DL (4.5-10.9)
[2024-09-10 06:52] LABS: THYROID STIMULATING HORMONE 2.572 uIU/ML (0.55-4.78)
[2024-09-10 07:07] LABS: ALBUMIN 2.7 G/DL (3.2-5.2); ALKALINE PHOSPHATASE 69 U/L (40-129); ALT/SGPT 56 U/L (7.0-40); AST/SGOT 39 U/L (<34); BILIRUBIN,DIRECT 0.8 MG/DL (<0.4); BILIRUBIN,TOTAL 2.3 MG/DL (0.3-1.2); BLOOD UREA NITROGEN 23 MG/DL (9-23); CALCIUM LEVEL 8.6 MG/DL (8.3-10.6); CARBON DIOXIDE LEVEL > 40.0 MMOL/L (20-31); CHLORIDE LEVEL 90 MMOL/L (98-107); CREATININE FOR GFR 1.01 MG/DL (0.70-1.30); GLOMERULAR FILTRATION RATE 76.1 (>42); GLUCOSE, FASTING 116 MG/DL (74-106); POTASSIUM SERUM 2.9 MMOL/L (3.5-5.1); SODIUM LEVEL 137 MMOL/L (136-145)
[2024-09-10 07:27] LABS: MAGNESIUM LEVEL 1.8 MG/DL (1.8-2.4)
[2024-09-10] MEDS ORDERED: D5W IV ONE (07:30)
[2024-09-10] MEDS ORDERED: MAGNESIUM SULFATE IV ONE (07:30)
[2024-09-10] MEDS: IPRATROPIUM 0.5MG/ALBUTEROL 2.5MG INH SOL UD 3ML NEB ONE (07:39)
[2024-09-10] MEDS: POTASSIUM CHLORIDE 10MEQ SR TABLET PO ONE ×2 (07:49→10:42)
[2024-09-10] MEDS: MAG SULF 1GM/100ML (MAG RUN) X2 IV SCH (07:53)
[2024-09-10] MEDS: BUDESONIDE 180MCG INHALER INH SCH (08:00)
[2024-09-10 08:13] LABS: INR 2.67; PARTIAL THROMBOPLASTIN TIME 48.6 SECONDS (24.8-34.2); PROTHROMBIN TIME 28.4 SECONDS (12.5-14.5)
[2024-09-10 08:18] LABS: CK-MB VALUE MASS 4.4 NG/ML (<3.6)
[2024-09-10 08:21] LABS: CPK CREATINE PHOSPHOKINASE 54 U/L (46-171); MB/CK RELATIVE INDEX 8.14 (< OR =4)
[2024-09-10] MEDS ORDERED: FINA5TAB2 PO (08:42)
[2024-09-10] MEDS ORDERED: BUDE10.7 PO (08:42)
[2024-09-10] MEDS ORDERED: AMOX875T2 PO (08:42)
[2024-09-10] MEDS ORDERED: EZET10TA21 PO (08:42)
[2024-09-10] MEDS ORDERED: PRED10TA2 PO (08:42)
[2024-09-10] MEDS ORDERED: WARF-23 PO (08:42)
[2024-09-10] MEDS ORDERED: HOME MED LIST COMPLETE! XX SCH (08:45)
[2024-09-10] MEDS ORDERED: IPRATROPIUM 0.5MG/ALBUTEROL 2.5MG INH SOL UD 3ML NEB PRN (09:35)
[2024-09-10] MEDS ORDERED: NITROGLYCERIN 0.4MG SUBL TABLET SL PRN (09:35)
[2024-09-10] MEDS ORDERED: ISOVUE-370 76% 100ML VIAL As Ordered ONE (09:45)
[2024-09-10 10:18] LABS: PROCALCITONIN 0.12 ng/ml
[2024-09-10 10:30] VITALS: BP 138/72; TEMP 97.5; O2SAT 92
[2024-09-10] MEDS: AZITHROMYCIN 250MG TABLET PO SCH (10:41)
[2024-09-10] MEDS: methylPREDNISolone 40MG 1ML VIAL IV SCH (10:41)
[2024-09-10] MEDS: EZETIMIBE 10MG TABLET PO SCH (10:41)
[2024-09-10] MEDS: FINASTERIDE 5MG TAB PO SCH (10:42)
[2024-09-10] MEDS: CLOPIDOGREL 75 MG TAB PO SCH (10:42)
[2024-09-10] MEDS: VITAMIN D 1,000 INTERNATIONAL UNITS TABLET PO SCH (10:42)
[2024-09-10] MEDS: METOPROLOL TART 25 MG TABLET PO SCH (10:42)
[2024-09-10] MEDS: CHLORTHALIDONE 25 MG TAB PO SCH (11:58)
[2024-09-10 12:25] VITALS: BP 139/65; TEMP 97.3; O2SAT 96
[2024-09-10] MEDS: cefTRIAXone SOD 1 GM in DEXTROSE 5% (D5W) ADV/MINI-BAG 50 ML IV SCH (13:38)
[2024-09-10] MEDS: IPRATROPIUM 0.5MG/ALBUTEROL 2.5MG INH SOL UD 3ML NEB SCH (14:00)
[2024-09-10] MEDS: SODIUM CHLORIDE HYPERTONIC 3% 4ML NEB SOL INH SCH (14:00)
[2024-09-10 14:42] LABS: HEPATITIS B SURFACE ANTIGEN NEGATIVE (NEGATIVE)
[2024-09-10 15:03] LABS: HEPATITIS B CORE ANTIBODY IGM NEGATIVE (NEGATIVE); HEPATITIS C VIRUS ABY INDEX 0.04 INDEX (<0.8)
[2024-09-10] MEDS: WARFARIN SOD 2.5MG TAB PO SCH (16:27)
[2024-09-10 17:38] VITALS: O2SAT 94
[2024-09-10 20:04] VITALS: BP 135/88; TEMP 98.1; O2SAT 98
[2024-09-10] MEDS: ATORVASTATIN 20 MG TAB PO SCH (21:04)
[2024-09-10] MEDS: TAMSULOSIN 0.4 MG CAP PO SCH (21:04)
[2024-09-11 03:14] VITALS: BP 136/87; TEMP 97.5; O2SAT 93
[2024-09-11 06:13] LABS: HEMATOCRIT 38.7 % (42.0-52.0); HEMOGLOBIN 13.1 g/dl (13.5-17.5); MEAN CORPUSCULAR HEMOGLOBIN 29.4 pg (27.0-33.0); MEAN CORPUSCULAR HGB CONC 33.9 g/dl (32.0-36.5); PLATELET COUNT, AUTOMATED 239 10^3/uL (150-450); RED BLOOD COUNT 4.45 10^6/uL (4.30-6.10); WHITE BLOOD COUNT 11.9 10^3/uL (4.0-10.0)
[2024-09-11 06:35] LABS: INR 2.86; PROTHROMBIN TIME 29.9 SECONDS (12.5-14.5)
[2024-09-11 06:39] LABS: CALCIUM LEVEL 8.3 MG/DL (8.3-10.6); CREATININE FOR GFR 0.85 MG/DL (0.70-1.30); GLOMERULAR FILTRATION RATE 88.9 (>42); MAGNESIUM LEVEL 2.1 MG/DL (1.8-2.4); POTASSIUM SERUM 3.7 MMOL/L (3.5-5.1)
[2024-09-11 07:39] LABS: ALBUMIN 2.7 G/DL (3.2-5.2); BILIRUBIN,DIRECT 0.8 MG/DL (<0.4); BILIRUBIN,TOTAL 2.3 MG/DL (0.3-1.2); TOTAL PROTEIN 6.2 G/DL (5.7-8.2)
[2024-09-11] MEDS ORDERED: PARoxetine 10MG TABLET PO SCH (09:00)
[2024-09-11] MEDS: PARoxetine 10MG/5ML SUSP ORAL SYRINGE *DRAW UP EXACT DOSE PO SCH (09:52)
[2024-09-11 09:59] VITALS: BP 138/87
[2024-09-11] MEDS ORDERED: AZIT500T5 PO (11:02)
[2024-09-11] MEDS ORDERED: PRED10TA2 PO (11:02)
[2024-09-11] MEDS ORDERED: ALBU8.5H INH (11:02)
[2024-09-11] MEDS ORDERED: CEFD1CAP9 PO (11:02)
[2024-09-11] MEDS ORDERED: NORV5TAB PO (11:06)
[2024-09-11 12:00] VITALS: BP 136/89; TEMP 97.3; O2SAT 91
[2024-09-11 12:23] VITALS: O2SAT 93
[2024-09-11] MEDS ORDERED: WARFARIN SOD 5MG TAB PO SCH (17:00)
== END 2024-09-11 16:10 | disposition home or self-care (01) ==
LOC: EDBD 05:45 → M ED 05:45 → M ED INP 05:46 → M MSPAV 10:42
PROVIDERS: ADMIT Internal Medicine; ATTEND Internal Medicine
DX: J44.1 Chronic obstructive pulmonary disease with (acute) exacerbation (principal); E87.6 Hypokalemia; K76.0 Fatty (change of) liver, not elsewhere classified; K76.89 Other specified diseases of liver; R06.02 Shortness of breath; R05.9 Cough, unspecified; R68.83 Chills (without fever); R74.01 Elevation of levels of liver transaminase levels; I25.10 Atherosclerotic heart disease of native coronary artery without angina pectoris; Z98.61 Coronary angioplasty status; I48.91 Unspecified atrial fibrillation; Z98.62 Peripheral vascular angioplasty status; N40.0 Benign prostatic hyperplasia without lower urinary tract symptoms; F39 Unspecified mood [affective] disorder; I25.2 Old myocardial infarction; Z87.891 Personal history of nicotine dependence; Z88.2 Allergy status to sulfonamides; Z88.1 Allergy status to other antibiotic agents; Z79.899 Other long term (current) drug therapy; Z79.02 Long term (current) use of antithrombotics/antiplatelets; Z79.51 Long term (current) use of inhaled steroids; Z79.52 Long term (current) use of systemic steroids; Z79.01 Long term (current) use of anticoagulants
CPT/HCPCS: 36415; 71045; 71275; 76705; 80048; 80074; 80076; 82550; 82553; 82803; 83605; 83735; 83880; 84145; 84436; 84443; 84484; 85025; 85027; 85610; 85730; 87486; 87581; 87633; 87641; 87798; 93005; 93041; 93306; 94640; 94760; 96365; 96366; 96367; 96375; 96376; 99285; G0378; J0696; J2919; J3475; Q9967

== ENCOUNTER 2024-10-26 11:42 | Inpatient (IN) | payer MEDICARE ==
[~2024-10-26] VITALS: Ht 172.7 cm; Wt 86.0 kg
[~2024-10-26 11:42] MED LIST changes: +AMLO1TAB24 PO; +AMOX875T2 PO; +AZIT500T5 PO; +BUDE10.7 PO; +CEFD1CAP9 PO; +EQL0.65S NARES; +EZET10TA21 PO; +FINA5TAB2 PO; +IPRA0.00 INH; +MAGN400C PO; +MAGN400T2 PO; +MUCI1TAB16 PO; +NORV5TAB PO; +POTA1TAB23 PO; +PRED10TA2 PO
[2024-10-26] MEDS: NS 500 ML IV ONE (12:43)
[2024-10-26] MEDS: MORPHINE 4 MG/ML 1 ML VIAL IV ONE (12:43)
[2024-10-26] MEDS: ONDANSETRON 4MG 2ML VIAL IV ONE (12:43)
[2024-10-26 12:49] LABS: BASO # 0.0 10^3/uL (0.0-0.2); BASO % 0.2 % (0.0-1.0); EOS # 0.1 10^3/uL (0.0-0.5); EOS % 1.2 % (0.0-3.0); LYMPH # 0.5 10^3/uL (1.5-5.0); LYMPH % 4.8 % (24.0-44.0); MONO # 0.9 10^3/uL (0.0-0.8); MONO % 8.5 % (2.0-8.0); NEUTROPHILS # 9.0 10^3/uL (1.5-8.5); NEUTROPHILS % 84.9 % (36.0-66.0); PLATELET COUNT, AUTOMATED 173 10^3/uL (150-450)
[2024-10-26 13:02] LABS: INR 3.32
[2024-10-26 13:27] LABS: ALT/SGPT 25 U/L (7.0-40); AST/SGOT 23 U/L (<34); CALCIUM LEVEL 8.5 MG/DL (8.3-10.6); CARBON DIOXIDE LEVEL 37 MMOL/L (20-31); CHLORIDE LEVEL 100 MMOL/L (98-107); CREATININE FOR GFR 0.80 MG/DL (0.70-1.30); GLOMERULAR FILTRATION RATE > 90.0 (>42); POTASSIUM SERUM 4.3 MMOL/L (3.5-5.1); SODIUM LEVEL 143 MMOL/L (136-145)
[2024-10-26] MEDS ORDERED: ISOVUE-370 76% 100 ML VIAL As Ordered ONE (13:57)
[2024-10-26] MEDS ORDERED: MORPHINE 2 MG/ML 1 ML VIAL IV PRN ×2 (16:55)
[2024-10-26] MEDS: KCL 20MEQ IN D5/0.45NS 1000ML 1,000 ML IV SCH ×2 (18:13→22:00)
[2024-10-26] MEDS: IPRATROPIUM 0.5 MG/ALBUTEROL 2.5 MG INH SOL UD 3 ML NEB SCH (19:53)
[2024-10-26] MEDS ORDERED: ACET-683 PO (20:14)
[2024-10-26] MEDS ORDERED: HOME MED LIST COMPLETE! XX SCH (20:15)
[2024-10-26] MEDS: ATORVASTATIN 20 MG TAB PO SCH (22:01)
[2024-10-26] MEDS: METOPROLOL TART 12.5 MG PER 1/2 TAB PO SCH (22:02)
[2024-10-26 22:20] VITALS: BP 169/74; TEMP 98.1; O2SAT 92
[2024-10-26] MEDS: TAMSULOSIN 0.4 MG CAP PO SCH (22:38)
[2024-10-27] VITALS: BP 125/57; TEMP 98.2; O2SAT 93
[2024-10-27] MEDS: IPRATROPIUM 0.5 MG/ALBUTEROL 2.5 MG INH SOL UD 3 ML NEB PRN (00:20)
[2024-10-27 04:00] VITALS: BP 145/67; TEMP 98.2; O2SAT 94
[2024-10-27 06:44] LABS: PLATELET COUNT, AUTOMATED 138 10^3/uL (150-450)
[2024-10-27 07:17] LABS: INR 4.29
[2024-10-27 07:30] LABS: ALT/SGPT 20 U/L (7.0-40); AST/SGOT 20 U/L (<34); CALCIUM LEVEL 8.3 MG/DL (8.3-10.6); CARBON DIOXIDE LEVEL 34 MMOL/L (20-31); CHLORIDE LEVEL 102 MMOL/L (98-107); CREATININE FOR GFR 0.77 MG/DL (0.70-1.30); GLOMERULAR FILTRATION RATE > 90.0 (>42); POTASSIUM SERUM 3.8 MMOL/L (3.5-5.1); SODIUM LEVEL 143 MMOL/L (136-145)
[2024-10-27 07:47] VITALS: BP 130/59; TEMP 98.2; O2SAT 99
[2024-10-27] MEDS: FINASTERIDE 5 MG TAB PO SCH (08:15)
[2024-10-27] MEDS: CLOPIDOGREL 75 MG TAB PO SCH (08:16)
[2024-10-27] MEDS: ACETAMINOPHEN 500 MG TAB PO PRN (08:16)
[2024-10-27] MEDS: PARoxetine 10MG/5ML SUSP ORAL SYRINGE *DRAW UP EXACT DOSE PO SCH (08:17)
[2024-10-27 12:01] VITALS: BP 134/62; TEMP 98.2; O2SAT 95
[2024-10-27 16:00] VITALS: BP 123/62; TEMP 98.2; O2SAT 95
[2024-10-27] MEDS: BISACODYL 5 MG TAB PO ONE (16:29)
[2024-10-27 20:26] VITALS: BP 120/56; TEMP 97.6; O2SAT 92
[2024-10-27] MEDS: MIRALAX *UNIT DOSE* 17 GM PACKET PO SCH (21:06)
[2024-10-28] VITALS (7 sets, daily range): BP systolic 125–177; BP diastolic 58–83; TEMP 96.5–97.9; O2SAT 94–100
[2024-10-28 06:45] LABS: PLATELET COUNT, AUTOMATED 178 10^3/uL (150-450)
[2024-10-28 07:13] LABS: INR 4.1
[2024-10-28 07:24] LABS: ALT/SGPT 22 U/L (7.0-40); AST/SGOT 22 U/L (<34); CALCIUM LEVEL 8.0 MG/DL (8.3-10.6); CARBON DIOXIDE LEVEL 31 MMOL/L (20-31); CHLORIDE LEVEL 101 MMOL/L (98-107); CREATININE FOR GFR 0.70 MG/DL (0.70-1.30); GLOMERULAR FILTRATION RATE > 90.0 (>42); POTASSIUM SERUM 3.8 MMOL/L (3.5-5.1); SODIUM LEVEL 141 MMOL/L (136-145)
[2024-10-28] MEDS: METAMUCIL PACKET PO SCH (08:37)
[2024-10-28] MEDS: FUROSEMIDE 40 MG/4 ML VIAL IV SCH (11:32)
[2024-10-28] MEDS: BISACODYL 10 MG SUPP PR ONE (12:05)
[2024-10-28] MEDS: TIOTROPIUM BROM 2.5MCG/ACTUATION 4GM INH INH SCH (17:58)
[2024-10-28] MEDS: SYMBICORT 160/4.5MCG INHALER 6GM INH SCH (19:40)
[2024-10-29] VITALS (7 sets, daily range): BP systolic 110–158; BP diastolic 59–75; TEMP 97.1–98.9; O2SAT 90–100
[2024-10-29] MEDS ORDERED: ENOXAPARIN 40 MG/0.4 ML SYRINGE (J1650 PER 10MG) SC SCH (09:00)
[2024-10-29 09:18] LABS: CALCIUM LEVEL 8.3 MG/DL (8.3-10.6); CARBON DIOXIDE LEVEL 31 MMOL/L (20-31); CHLORIDE LEVEL 100 MMOL/L (98-107); CREATININE FOR GFR 0.81 MG/DL (0.70-1.30); GLOMERULAR FILTRATION RATE > 90.0 (>42); POTASSIUM SERUM 3.9 MMOL/L (3.5-5.1); SODIUM LEVEL 140 MMOL/L (136-145)
[2024-10-29 09:19] LABS: PLATELET COUNT, AUTOMATED 191 10^3/uL (150-450)
[2024-10-29 09:31] LABS: INR 2.47
[2024-10-29] MEDS: WARFARIN SOD 2.5MG TAB PO SCH (16:54)
[2024-10-30 03:38] VITALS: BP 135/62; TEMP 97; O2SAT 98
[2024-10-30 08:00] VITALS: BP 117/56; TEMP 96.8; O2SAT 96
[2024-10-30 08:13] LABS: PLATELET COUNT, AUTOMATED 199 10^3/uL (150-450)
[2024-10-30 08:24] LABS: INR 1.68
[2024-10-30 08:50] LABS: CALCIUM LEVEL 8.3 MG/DL (8.3-10.6); CARBON DIOXIDE LEVEL 33.0 MMOL/L (20-31); CHLORIDE LEVEL 101.0 MMOL/L (98-107); CREATININE FOR GFR 0.88 MG/DL (0.70-1.30); GLOMERULAR FILTRATION RATE 88.0 (>42); POTASSIUM SERUM 3.4 MMOL/L (3.5-5.1); SODIUM LEVEL 143.0 MMOL/L (136-145)
[2024-10-30 12:00] VITALS: BP 118/64; TEMP 96; O2SAT 98
[2024-10-30] MEDS: POTASSIUM CHLORIDE 10MEQ SR TABLET PO ONE (12:25)
[2024-10-30 16:00] VITALS: BP 120/88; TEMP 95.9; O2SAT 100
[2024-10-30 20:00] VITALS: BP 119/54; TEMP 97; O2SAT 97
[2024-10-30] MEDS: SENNOSIDES/DOCUSATE SODIUM 8.6 MG/50MG TAB PO SCH (20:33)
[2024-10-31] VITALS (8 sets, daily range): BP systolic 112–150; BP diastolic 58–68; TEMP 96.8–98.2; O2SAT 94–98
[2024-10-31 06:25] LABS: PLATELET COUNT, AUTOMATED 199 10^3/uL (150-450)
[2024-10-31 06:38] LABS: INR 1.35
[2024-10-31 06:48] LABS: CALCIUM LEVEL 8.1 MG/DL (8.3-10.6); CARBON DIOXIDE LEVEL 32.0 MMOL/L (20-31); CHLORIDE LEVEL 104.0 MMOL/L (98-107); CREATININE FOR GFR 0.82 MG/DL (0.70-1.30); GLOMERULAR FILTRATION RATE 89.9 (>42); POTASSIUM SERUM 3.7 MMOL/L (3.5-5.1); SODIUM LEVEL 143.0 MMOL/L (136-145)
[2024-10-31] MEDS: BISACODYL 10 MG SUPP PR ONE (11:23)
[2024-10-31] MEDS: FUROSEMIDE 20 MG TAB PO SCH (12:43)
[2024-10-31] MEDS: WARFARIN SOD 5MG TAB PO SCH (16:09)
[2024-11-01 04:30] VITALS: BP 118/62; TEMP 98; O2SAT 96
[2024-11-01 06:05] LABS: PLATELET COUNT, AUTOMATED 212 10^3/uL (150-450)
[2024-11-01 06:17] LABS: INR 1.68
[2024-11-01 08:00] VITALS: BP 127/58; TEMP 97; O2SAT 96
[2024-11-01] MEDS ORDERED: MIRA3350 PO (09:33)
[2024-11-01] MEDS ORDERED: COLA100C5 PO (09:33)
[2024-11-01] MEDS ORDERED: FURO20TA2 PO (09:33)
[2024-11-01 10:24] VITALS: BP 127/58
[2024-11-01 12:00] VITALS: BP 119/74; TEMP 96.8; O2SAT 99
== END 2024-11-01 16:30 | disposition home health service (06) | DRG 391 ==
LOC: M ED 11:42 → M ED INP 11:43 → M MS4PR 22:15 → OBSVTOIN 10-30 15:32
PROVIDERS: ADMIT Family Medicine; ATTEND Internal Medicine
DX: K59.09 Other constipation (principal); I50.33 Acute on chronic diastolic (congestive) heart failure; J96.10 Chronic respiratory failure, unspecified whether with hypoxia or hypercapnia; R10.33 Periumbilical pain; K40.90 Unilateral inguinal hernia, without obstruction or gangrene, not specified as recurrent; E78.00 Pure hypercholesterolemia, unspecified; I25.2 Old myocardial infarction; I11.0 Hypertensive heart disease with heart failure; I48.91 Unspecified atrial fibrillation; J44.9 Chronic obstructive pulmonary disease, unspecified; I25.10 Atherosclerotic heart disease of native coronary artery without angina pectoris; N40.1 Benign prostatic hyperplasia with lower urinary tract symptoms; R33.9 Retention of urine, unspecified; F32.A Depression, unspecified; E80.4 Gilbert syndrome; I71.43 Infrarenal abdominal aortic aneurysm, without rupture; Z96.641 Presence of right artificial hip joint; Z95.5 Presence of coronary angioplasty implant and graft; Z87.891 Personal history of nicotine dependence; Z88.2 Allergy status to sulfonamides; Z79.01 Long term (current) use of anticoagulants; Z88.8 Allergy status to other drugs, medicaments and biological substances; Z79.02 Long term (current) use of antithrombotics/antiplatelets; Z99.81 Dependence on supplemental oxygen; Z79.899 Other long term (current) drug therapy; Z88.0 Allergy status to penicillin

== ENCOUNTER 2024-11-12 01:52 | Emergency (ER) | payer MEDICARE ==
[~2024-11-12] VITALS: Ht 165.1 cm; Wt 62.0 kg
[~2024-11-12 01:52] MED LIST changes: +ACET-683 PO; +COLA100C5 PO; +FURO20TA2 PO; +MIRA3350 PO
[2024-11-12 02:14] VITALS: BP 129/61; TEMP 97.1; O2SAT 100
[2024-11-12 05:10] LABS: BASO # 0.0 10^3/uL (0.0-0.2); BASO % 0.5 % (0.0-1.0); EOS # 0.2 10^3/uL (0.0-0.5); EOS % 2.3 % (0.0-3.0); LYMPH # 0.9 10^3/uL (1.5-5.0); LYMPH % 10.7 % (24.0-44.0); MONO # 0.8 10^3/uL (0.0-0.8); MONO % 9.3 % (2.0-8.0); NEUTROPHILS # 6.7 10^3/uL (1.5-8.5); NEUTROPHILS % 76.9 % (36.0-66.0); PLATELET COUNT, AUTOMATED 289 10^3/uL (150-450)
[2024-11-12 05:39] LABS: CALCIUM LEVEL 8.4 MG/DL (8.3-10.6); CARBON DIOXIDE LEVEL 35.0 MMOL/L (20-31); CHLORIDE LEVEL 100.0 MMOL/L (98-107); CREATININE FOR GFR 1.05 MG/DL (0.70-1.30); GLOMERULAR FILTRATION RATE 72.7 (>42); POTASSIUM SERUM 3.9 MMOL/L (3.5-5.1); SODIUM LEVEL 143.0 MMOL/L (136-145)
[2024-11-12 05:45] LABS: INR 5.14
[2024-11-12] MEDS: PHYTONADIONE 5 MG TAB PO ONE (06:48)
[2024-11-12] MEDS ORDERED: MIRA3350 PO (14:34)
[2024-11-12] MEDS ORDERED: FURO20TA2 PO (14:34)
[2024-11-12] MEDS ORDERED: DOCU100C16 PO (14:34)
== END 2024-11-12 07:10 | disposition home or self-care (01) ==
LOC: EDBD 01:52 → M ED 01:52
DX: R31.0 Gross hematuria (principal); R79.83 Abnormal findings of blood amino-acid level; T83.098A Other mechanical complication of other urinary catheter, initial encounter; J44.9 Chronic obstructive pulmonary disease, unspecified; I50.9 Heart failure, unspecified; I10 Essential (primary) hypertension; Z88.2 Allergy status to sulfonamides; Z88.0 Allergy status to penicillin; Z88.8 Allergy status to other drugs, medicaments and biological substances; Z79.899 Other long term (current) drug therapy; Z79.01 Long term (current) use of anticoagulants; Z79.51 Long term (current) use of inhaled steroids; Z79.1 Long term (current) use of non-steroidal anti-inflammatories (NSAID)

== ENCOUNTER → 2024-12-01 | Outpatient (REF) | payer MEDICARE ==
[~2024-12-01] MED LIST changes: +CEFP200T PO; +DOCU100C16 PO; +LASI20TA3 PO; +SENN18TA PO
[2024-12-01 13:32] LABS: APPEARANCE, URINE TURBID (CLEAR); BACTERIA, URINE AUTO 2+ (NEGATIVE); BILIRUBIN, URINE AUTO NEGATIVE (NEGATIVE); BLOOD, URINE BLOOD 2+ (NEGATIVE); GLUCOSE, URINE (UA) AUTO NEGATIVE (NEGATIVE); KETONE, URINE AUTO TRACE mg/dL (NEGATIVE); LEUKOCYTE ESTERASE, URINE AUTO 2+ (NEGATIVE); MUCUS, URINE LARGE (NEGATIVE); NITRITE, URINE AUTO POSITIVE (NEGATIVE); PROTEIN, URINE AUTO 3+ mg/dL (NEGATIVE); RBC, URINE AUTO TNTC /HPF (0-3); SPECIFIC GRAVITY URINE AUTO 1.024 (1.002-1.035); SQUAMOUS EPITHELIAL CELL UR AU 4 /HPF (0-6); UROBILINOGEN, URINE AUTO 2.0 mg/dL (0.0-2.0); WBC, URINE AUTO TNTC /HPF (0-3)
== END ==
LOC: M SMT 12:42
PROVIDERS: ATTEND Physician Assistant
DX: N39.498 Other specified urinary incontinence (principal)

== ENCOUNTER → 2025-01-26 | Outpatient (CLI) | payer MEDICARE ==
[~2025-01-26] MED LIST changes: -EZET10TA21 PO; +EZET10TA57 PO
== END ==
LOC: M CLY 10:20
PROVIDERS: ATTEND Nurse Practitioner Family
DX: M75.102 Unspecified rotator cuff tear or rupture of left shoulder, not specified as traumatic (principal); M19.012 Primary osteoarthritis, left shoulder

== ENCOUNTER → 2025-03-05 | Outpatient (REF) | payer MEDICARE ==
[2025-03-05 17:47] LABS: APPEARANCE, URINE HAZY (CLEAR); BACTERIA, URINE AUTO 1+ (NEGATIVE); BILIRUBIN, URINE AUTO NEGATIVE (NEGATIVE); BLOOD, URINE BLOOD 1+ (NEGATIVE); GLUCOSE, URINE (UA) AUTO NEGATIVE (NEGATIVE); KETONE, URINE AUTO NEGATIVE (NEGATIVE); LEUKOCYTE ESTERASE, URINE AUTO 2+ (NEGATIVE); MUCUS, URINE SMALL (NEGATIVE); NITRITE, URINE AUTO NEGATIVE (NEGATIVE); PROTEIN, URINE AUTO NEGATIVE (NEGATIVE); RBC, URINE AUTO 5 /HPF (0-3); SPECIFIC GRAVITY URINE AUTO 1.010 (1.002-1.035); SQUAMOUS EPITHELIAL CELL UR AU 0 /HPF (0-6); UROBILINOGEN, URINE AUTO 0.2 mg/dL (0.0-2.0); WBC, URINE AUTO 180 /HPF (0-3)
== END ==
LOC: M SFHCCLAY 17:19
PROVIDERS: ATTEND Physician Assistant
DX: R31.9 Hematuria, unspecified (principal)

== ENCOUNTER → 2025-03-11 | Outpatient (REF) | payer MEDICARE ==
[2025-03-11 14:03] LABS: APPEARANCE, URINE CLEAR (CLEAR); BACTERIA, URINE AUTO NEGATIVE (NEGATIVE); BILIRUBIN, URINE AUTO NEGATIVE (NEGATIVE); BLOOD, URINE BLOOD 1+ (NEGATIVE); GLUCOSE, URINE (UA) AUTO NEGATIVE (NEGATIVE); KETONE, URINE AUTO NEGATIVE (NEGATIVE); LEUKOCYTE ESTERASE, URINE AUTO TRACE (NEGATIVE); MUCUS, URINE SMALL (NEGATIVE); NITRITE, URINE AUTO NEGATIVE (NEGATIVE); PROTEIN, URINE AUTO NEGATIVE (NEGATIVE); RBC, URINE AUTO 1 /HPF (0-3); SPECIFIC GRAVITY URINE AUTO 1.009 (1.002-1.035); SQUAMOUS EPITHELIAL CELL UR AU 0 /HPF (0-6); UROBILINOGEN, URINE AUTO 0.2 mg/dL (0.0-2.0); WBC, URINE AUTO 18 /HPF (0-3)
== END ==
LOC: M SMT 12:49
PROVIDERS: ATTEND Urology
DX: N40.0 Benign prostatic hyperplasia without lower urinary tract symptoms (principal)

== ENCOUNTER 2025-03-20 11:53 | Observation (INO) | payer MEDICARE ==
[~2025-03-20] VITALS: Ht 172.7 cm; Wt 79.1 kg
[2025-03-20 12:32] LABS: BASO # 0.1 10^3/uL (0.0-0.2); BASO % 0.6 % (0.0-1.0); EOS # 0.2 10^3/uL (0.0-0.5); EOS % 2.8 % (0.0-3.0); LYMPH # 0.7 10^3/uL (1.5-5.0); LYMPH % 8.6 % (24.0-44.0); MONO # 0.7 10^3/uL (0.0-0.8); MONO % 9.1 % (2.0-8.0); NEUTROPHILS # 6.3 10^3/uL (1.5-8.5); NEUTROPHILS % 78.6 % (36.0-66.0); PLATELET COUNT, AUTOMATED 244 10^3/uL (150-450)
[2025-03-20 13:04] LABS: ALT/SGPT 27.0 U/L (7.0-40); AST/SGOT 24.0 U/L (<34); CALCIUM LEVEL 8.4 MG/DL (8.3-10.6); CARBON DIOXIDE LEVEL 34.0 MMOL/L (20-31); CHLORIDE LEVEL 102.0 MMOL/L (98-107); CREATININE FOR GFR 0.98 MG/DL (0.70-1.30); GLOMERULAR FILTRATION RATE 78.4 (>42); POTASSIUM SERUM 4.1 MMOL/L (3.5-5.1); SODIUM LEVEL 144.0 MMOL/L (136-145)
[2025-03-20 14:02] LABS: CK-MB VALUE MASS 4.6 NG/ML (<3.6); CPK CREATINE PHOSPHOKINASE 51.0 U/L (46-171); MB/CK RELATIVE INDEX 9.01 (< OR =4)
[2025-03-20] MEDS: cefTRIAXone SOD 1 GM in DEXTROSE 5% (D5W) ADV/MINI-BAG 50 ML IV ONE (14:28)
[2025-03-20] MEDS: AZITHROMYCIN 250 MG TABLET PO ONE (14:28)
[2025-03-20 15:20] LABS: INR 1.71
[2025-03-20] MEDS ORDERED: WARF-18 PO (16:40)
[2025-03-20] MEDS ORDERED: ALBU10.7 INH (16:40)
[2025-03-20] MEDS ORDERED: HOME MED LIST COMPLETE! XX SCH (16:45)
[2025-03-20] MEDS ORDERED: ACETAMINOPHEN 500 MG TAB PO PRN (18:35)
[2025-03-20] MEDS: TAMSULOSIN 0.4 MG CAP PO SCH (20:27)
[2025-03-20] MEDS: WARFARIN SOD 3MG TAB PO ONE (20:27)
[2025-03-20] MEDS: ATORVASTATIN 20 MG TAB PO SCH (20:28)
[2025-03-20] MEDS: DOCUSATE SODIUM 100 MG CAPSULE PO SCH (20:28)
[2025-03-20] MEDS: METOPROLOL TART 25 MG TABLET PO SCH (20:29)
[2025-03-21 06:54] LABS: PLATELET COUNT, AUTOMATED 211 10^3/uL (150-450)
[2025-03-21 07:14] LABS: INR 1.53
[2025-03-21 07:18] LABS: CALCIUM LEVEL 8.5 MG/DL (8.3-10.6); CARBON DIOXIDE LEVEL 32.0 MMOL/L (20-31); CHLORIDE LEVEL 101.0 MMOL/L (98-107); CREATININE FOR GFR 0.8 MG/DL (0.70-1.30); GLOMERULAR FILTRATION RATE 90.0 (>42); POTASSIUM SERUM 4.3 MMOL/L (3.5-5.1); SODIUM LEVEL 140.0 MMOL/L (136-145)
[2025-03-21 08:00] VITALS: BP 157/70; TEMP 96.2; O2SAT 95
[2025-03-21] MEDS: FINASTERIDE 5 MG TAB PO SCH (10:08)
[2025-03-21] MEDS: CLOPIDOGREL 75 MG TAB PO SCH (10:08)
[2025-03-21] MEDS: MAGNESIUM OXIDE 400 MG TAB PO SCH (10:08)
[2025-03-21] MEDS: DOXYCYCLINE HYCLATE 100 MG TABLET PO SCH (10:09)
[2025-03-21] MEDS: PARoxetine 10MG/5ML SUSP ORAL SYRINGE *DRAW UP EXACT DOSE PO SCH (10:10)
[2025-03-21] MEDS: amLODIPine 5 MG TAB PO SCH (10:10)
[2025-03-21 10:15] VITALS: BP_SYST 108; BP_SYST 111; BP_SYST 121; BP_DIAS 53; BP_DIAS 55; BP_DIAS 59
[2025-03-21] MEDS: POTASSIUM CHLORIDE 10MEQ SR TABLET PO SCH (12:09)
[2025-03-21 12:11] VITALS: BP 143/67
[2025-03-21] MEDS: FUROSEMIDE 20 MG TAB PO SCH (12:11)
[2025-03-21 13:50] VITALS: BP 125/59; TEMP 96.9; O2SAT 92
[2025-03-21] MEDS: cefTRIAXone SOD 1 GM in DEXTROSE 5% (D5W) ADV/MINI-BAG 50 ML IV SCH (14:19)
[2025-03-21] MEDS ORDERED: DOXY100C3 PO (15:50)
[2025-03-21] MEDS ORDERED: CEFD1CAP9 PO (15:50)
[2025-03-21] MEDS ORDERED: PILL CUTTER 1 EACH XX PRN (16:00)
[2025-03-21] MEDS: WARFARIN SOD 2.5MG TAB PO SCH (16:21)
== END 2025-03-21 16:45 | disposition home or self-care (01) ==
LOC: M ED 11:53 → M ED INP 11:54
PROVIDERS: ADMIT Student in an Organized Health Care Education/Training Program; ATTEND Student in an Organized Health Care Education/Training Program
DX: R42 Dizziness and giddiness (principal); J96.11 Chronic respiratory failure with hypoxia; J44.9 Chronic obstructive pulmonary disease, unspecified; I48.91 Unspecified atrial fibrillation; I11.0 Hypertensive heart disease with heart failure; I25.10 Atherosclerotic heart disease of native coronary artery without angina pectoris; I50.9 Heart failure, unspecified; Z98.61 Coronary angioplasty status; N40.0 Benign prostatic hyperplasia without lower urinary tract symptoms; E78.5 Hyperlipidemia, unspecified; Z99.81 Dependence on supplemental oxygen; Z86.73 Personal history of transient ischemic attack (TIA), and cerebral infarction without residual deficits; Z95.828 Presence of other vascular implants and grafts; Z87.891 Personal history of nicotine dependence; Z96.641 Presence of right artificial hip joint; Z82.3 Family history of stroke; Z80.41 Family history of malignant neoplasm of ovary; Z88.0 Allergy status to penicillin; Z88.2 Allergy status to sulfonamides; Z88.1 Allergy status to other antibiotic agents
CPT/HCPCS: 36415; 71045; 71250; 80048; 80076; 82550; 82553; 83880; 84145; 84484; 85025; 85027; 85610; 85730; 87040; 87486; 87581; 87633; 87798; 93005; 93041; 94760; 96365; 96376; 99285; G0378; J0696